=== PATIENT | male | born 1980 | race African-American/Black ===

== ENCOUNTER 2016-11-21 03:30 | Emergency (ER) | payer BC, OTHER ==
[2016-11-21] MEDS: ceFAZolin 1,000 MG VIAL IM STA (04:19)
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
[2016-11-21 05:07] VITALS: BP 144/97; PULSE 70; RESP 18; TEMP 97
== END 2016-11-21 05:06 | disposition home or self-care (01) ==
LOC: EC 03:30
DX: S01.01XA Laceration without foreign body of scalp, initial encounter (principal); S01.511A Laceration without foreign body of lip, initial encounter; J45.909 Unspecified asthma, uncomplicated; Z88.0 Allergy status to penicillin; F17.200 Nicotine dependence, unspecified, uncomplicated; W26.0XXA Contact with knife, initial encounter
CPT/HCPCS: 12032; 12011; 96372; 99283; J0690

== ENCOUNTER 2019-01-26 19:39 | Emergency (ER) | payer OTHER ==
[2019-01-26 19:51] VITALS: TEMP 99.2
--- NOTE | 2019-01-26 21:45 | CT ---
EXAMINATION TYPE: CT brain darian millan DATE OF EXAM: 01/26/2019 COMPARISON: None HISTORY: fall. posterior head injury CT DLP: 1334.4 mGycm Automated exposure control for dose reduction was used. TECHNIQUE: CT scan of the head and cervical spine are performed without contrast. FINDINGS: Ventricles of normal size. There is no mass effect nor midline shift. There is no sign of intracranial hemorrhage. Calvarium is intact. There is some straightening of the cervical spine. There is mild disc space narrowing at C5-6 and C6- 7. There is spurring of the endplates. Posterior elements are intact. Facet joints are intact. The sk ull base is intact. IMPRESSION: Negative CT scan of the brain. Negative CT scan cervical spine. Straightening and could relate to old ligamentous injury. Mild spond ylotic changes.
--- NOTE | 2019-01-26 21:47 | XR ---
EXAMINATION TYPE: XR thoracic spine complete DATE OF EXAM: 01/26/2019 COMPARISON: NONE HISTORY: Back pain TECHNIQUE: 3 views FINDINGS: Thoracic vertebra have normal spacing and alignment. Posterior elements are intact. There i s no paraspinal mass. IMPRESSION: Negative thoracic spine exam.
--- NOTE | 2019-01-26 21:49 | XR ---
EXAMINATION TYPE: XR lumbar spine 2 or 3V DATE OF EXAM: 01/26/2019 COMPARISON: NONE HISTORY: Back pain TECHNIQUE: 3 views FINDINGS: Vertebra have normal alignment. Disc spaces are fairly normal. Posterior elements are intac t. There is no evidence of a fracture. Sacroiliac joints appear normal. IMPRESSION: Negative lumbar spine exam. No fracture.
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
[2019-01-26 22:24] VITALS: BP 126/82; PULSE 78; RESP 16
== END 2019-01-26 22:20 | disposition home or self-care (01) ==
LOC: EC 19:39
DX: S00.03XA Contusion of scalp, initial encounter (principal); S20.419A Abrasion of unspecified back wall of thorax, initial encounter; J45.909 Unspecified asthma, uncomplicated; F17.200 Nicotine dependence, unspecified, uncomplicated; Z88.0 Allergy status to penicillin; Z88.1 Allergy status to other antibiotic agents; Z79.899 Other long term (current) drug therapy; W10.9XXA Fall (on) (from) unspecified stairs and steps, initial encounter; Y92.89 Other specified places as the place of occurrence of the external cause
CPT/HCPCS: 70450; 72072; 72100; 72125; 99284

== ENCOUNTER 2019-02-07 15:21 | Emergency (ER) | payer OTHER ==
[2019-02-07] MEDS ORDERED: methylPREDNISolone SOD SUCCI 125 MG/2 ML VIAL IM ONE (16:36)
[2019-02-07] MEDS ORDERED: IPRATROPIUM-ALBUTEROL 3 ML NEB INHALATION STA ×2 (16:36→17:11)
--- NOTE | 2019-02-07 17:46 | ED ---
SOB HPI - General Chief Complaint: Shortness of Breath Stated Complaint: Sob Time Seen by Provider: 02/07/19 16:34 Source: patient Mode of arrival: ambulatory Limitations: no limitations - History of Present Illness Initial Comments: 38-year-old male current smoker history of asthma presenting today for chief complaint of asthma exacerbation. Patient states he began noticing wheezing last night and he states he was out of his nebulizer treatments at home. Patient states that he continued into today and he presented for evaluation of asthma exacerbation. Patient states identical to previous exacerbations in the past. Patient denies any differences with previous exacerbations. Patient denies chest pain he denies back pain he denies fever or chills night sweats increased sputum production. Patient states he was feeling well aside from having shortness of breath. Patient has a lower external swelling, nausea abdominal or epigastric pain. Patient states he is out of his rescue inhaler as well. Upon arrival patient oxygenating well on room air, audible wheezes. BP elevated. Pt appears noncyanotic no acute distress. - Related Data Previous Rx's Medication Instructions Recorded Albuterol Inhaler [Ventolin Hfa 1 - 2 puff INHALATION RT-Q6H PRN 7 02/07/19 Inhaler] Days #1 inhaler Ipratropium-Albuterol Nebulize 3 ml INHALATION Q6H PRN 5 Days #20 02/07/19 [Duoneb 0.5 mg-3 mg/3 ml Soln] neb predniSONE 50 mg PO DAILY 4 Days #4 tab 02/07/19 Allergies Allergy/AdvReac Type Severity Reaction Status Date / Time amoxicillin Allergy Rash/Hives Verified 11/21/16 03:38 Penicillins Allergy Rash/Hives Verified 11/21/16 03:38 shellfish derived [Shellfish] Allergy Rash/Hives Verified 02/07/19 18:37 Review of Systems ROS Statement: Those systems with pertinent positive or pertinent negative responses have been documented in the HPI. ROS Other: All systems not noted in ROS Statement are negative. Past Medical History Past Medical History: Asthma, Hypertension History of Any Multi-Drug Resistant Organisms: None Reported Past Surgical History: No Surgical Hx Reported Additional Past Surgical History / Comment(s): finger surgery Past Psychological History: No Psychological Hx Reported Smoking Status: Current every day smoker Past Alcohol Use History: Occasional Past Drug Use History: None Reported General Exam - General Exam Comments Initial Comments: General: The patient is awake and alert, in no distress, and does not appear acutely ill. Eye: +3 mm pupils are equal, round and reactive to light, extra-ocular movements are intact. No nystagmus. There is normal conjunctiva bilaterally. No signs of icterus. No photophobia Ears, nose, mouth and throat: There are moist mucous membranes and no oral lesions. Oropharynx was not erythematous there is no tonsillar enlargement exudates or lesions. Uvula midline. Tympanic membranes are not erythematous or is no effusions bulging or retraction. No tenderness to palpation of the mastoid. No anterior cervical lymphadenopathy. Rhinorrhea, clear and bilateral nares. No tripoding, no drooling. Neck: The neck is supple, there is no tenderness or JVD. Cardiovascular: There is a regular rate and rhythm. No murmur, rub or gallop is appreciated. Respiratory: Lungs are clear to auscultation, respirations are non-labored, breath sounds are equal. Diffuse exudate or wheeze. No stridor, rales, or rhonchi. No retractions or abdominal breathing. Gastrointestinal: Soft, non-distended, non-tender abdomen without masses or organomegaly noted. There is no rebound or guarding present. Bowel sounds are unremarkable. Musculoskeletal: Normal ROM, no tenderness. Strength 5/5. Sensation intact. Radial pulses equal bilaterally 2+. Neurological: A&O x 3. CN II-XII intact, There are no obvious motor or sensory deficits. Coordination appears grossly intact. Speech appears normal, no muffling. Skin: Skin is warm and dry and no rashes or lesions are noted. No extremity edema Psychiatric: Cooperative Limitations: no limitations Course Vital Signs 02/07/19 02/07/19 02/07/19 16:11 17:10 17:21 Temperature 98.3 F Pulse Rate 92 68 70 Respiratory 28 H Rate Blood Pressure 147/112 O2 Sat by Pulse 97 Oximetry 02/07/19 02/07/19 02/07/19 17:50 18:00 18:44 Temperature 97.8 F Pulse Rate 70 68 91 Respiratory 18 Rate Blood Pressure 146/108 O2 Sat by Pulse 97 Oximetry - Reevaluation(s) Reevaluation #1: Patient was reassessed after initial DuoNeb treatment, significant improvement of extra wheeze. Patient will receive second treatment. 02/07/19 17:46 Medical Decision Making - Medical Decision Making 38-year-old male presenting for asthma exacerbation. Patient has diffuse extremities. Patient was given 2 DuoNeb treatments as well as IM steroids in the emergency department. Significant improvement with resolution of x-ray wheeze. Patient denies any current shortness of breath upon reexamination. Patient requesting discharge. Patient blood pressure elevated. Patient will dress issue with primary care provider he denies any chest pain, decreased urine output headache, dizziness, nausea or other concerning symptoms for end organ damage. Patient is out of her medications for asthma treatment. Patient was provided prescription for DuoNeb treatments with the nebulizer at home, rescue inhaler as well as a steroid pack for 5 days. At this time I feel patient is stable for discharge I discussed the case with type opal Ludwig who is agreeable with patient discharge. Pt discharged oxygenating well on RA. Appearing well. Disposition Clinical Impression: Asthma exacerbation Disposition: HOME SELF-CARE Condition: Good Instructions (If sedation given, give patient instructions): Asthma (ED) Additional Instructions: Please use medication as discussed. Please follow-up with family doctor in the next 2 days.. Please return to emergency room if the symptoms increase or worsen or for any other concerns. Prescriptions: Ipratropium-Albuterol Nebulize [Duoneb 0.5 mg-3 mg/3 ml Soln] 3 ml INHALATION Q6H PRN 5 Days #20 neb PRN Reason: Shortness Of Breath predniSONE 50 mg PO DAILY 4 Days #4 tab Albuterol Inhaler [Ventolin Hfa Inhaler] 1 - 2 puff INHALATION RT-Q6H PRN 7 Days #1 inhaler PRN Reason: Wheezing Is patient prescribed a controlled substance at d/c from ED?: No Referrals: Jose Sanches MD [Primary Care Provider] - 1-2 days Time of Disposition: 17:44
[2019-02-07 18:45] VITALS: BP 146/108; PULSE 91; RESP 18; TEMP 97.8
== END 2019-02-07 18:45 | disposition home or self-care (01) ==
LOC: EC 15:21
DX: J45.901 Unspecified asthma with (acute) exacerbation (principal); F17.200 Nicotine dependence, unspecified, uncomplicated; Z88.0 Allergy status to penicillin; Z91.013 Allergy to seafood
CPT/HCPCS: 94640 ×2; 99284; 96372; J2930

== ENCOUNTER 2019-02-08 01:03 | Emergency (ER) | payer OTHER ==
[2019-02-08] MEDS ORDERED: DIPH,PERTUS(ACELL)TETVAC-LF 0.5 ML VIAL IM ONE (01:19)
[2019-02-08] MEDS ORDERED: LIDOCAINE 1% INJ 10MG/ML (20 ML MDV) SQ ONE (01:50)
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
[2019-02-08 03:41] LABS: Amphetamine Screen,Urine Not Detected (NotDetected); Barbiturate Screen,Urine Not Detected (NotDetected); Benzodiazepines Screen,Urine Not Detected (NotDetected); Cocaine Screen,Urine Not Detected (NotDetected); Methadone Screen, Urine Not Detected (NotDetected); Opiate Screen,Urine Not Detected (NotDetected); Oxycodone Screen, Urine Not Detected (NotDetected); Phencyclidine Screen,Urine Not Detected (NotDetected); Tricyclic Antidepressant,Urine Not Detected (NotDetected); Urn Cannabinoid Scrn Not Detected (NotDetected)
[2019-02-08 03:54] VITALS: BP 124/80; PULSE 97; RESP 16; TEMP 97.4
== END 2019-02-08 03:54 | disposition home or self-care (01) ==
LOC: EC 01:03
DX: S02.2XXA Fracture of nasal bones, initial encounter for closed fracture (principal); S01.111A Laceration without foreign body of right eyelid and periocular area, initial encounter; S80.212A Abrasion, left knee, initial encounter; S80.211A Abrasion, right knee, initial encounter; F17.200 Nicotine dependence, unspecified, uncomplicated; Z88.0 Allergy status to penicillin; Z91.013 Allergy to seafood; Z23 Encounter for immunization; Y04.8XXA Assault by other bodily force, initial encounter; Y92.830 Public park as the place of occurrence of the external cause
CPT/HCPCS: 36415; 80306; 72125; 70486; 70450; 90715; 99284; 12013; 90471; G0480; J2001; 80320

== ENCOUNTER 2019-06-03 17:58 | Emergency (ER) | payer OTHER ==
[2019-06-03 18:06] VITALS: BP 137/95; PULSE 100; RESP 20; TEMP 99.3
[2019-06-03] MEDS ORDERED: ACET/COD 300 MG/30 MG STARTER PACK 6 TAB BTL PO STA (18:14)
--- NOTE | 2019-06-03 18:15 | ED ---
ENT HPI - General Chief complaint: Dental/Oral Stated complaint: Dental/throat pain Time Seen by Provider: 06/03/19 18:07 Source: patient Mode of arrival: ambulatory Limitations: no limitations - History of Present Illness Initial comments: 39-year-old male presenting for left upper dental pain. Patient states he has had left upper dental pain for the past 2-3 days. Patient states he has a slight sore throat. Patient denies any difficulty breathing or swallowing. Patient denies any swelling below the time of the lips. Denies any facial swelling. Denies fevers. Denies night sweats or chills. Denies any compressive symptoms. Remaining review of systems negative upon arrival patient appears well no signs of acute distress. Patient states he does have to make an appointment with his dentist however was not able to get in. - Related Data Previous Rx's Medication Instructions Recorded Albuterol Inhaler [Ventolin Hfa 1 - 2 puff INHALATION RT-Q6H PRN 7 02/07/19 Inhaler] Days #1 inhaler Ipratropium-Albuterol Nebulize 3 ml INHALATION Q6H PRN 5 Days #20 02/07/19 [Duoneb 0.5 mg-3 mg/3 ml Soln] neb predniSONE 50 mg PO DAILY 4 Days #4 tab 02/07/19 Clindamycin [Cleocin] 450 mg PO Q8H 7 Days #63 capsule 06/03/19 Allergies Allergy/AdvReac Type Severity Reaction Status Date / Time amoxicillin Allergy Rash/Hives Verified 06/03/19 18:05 Penicillins Allergy Rash/Hives Verified 06/03/19 18:05 shellfish derived [Shellfish] Allergy Rash/Hives Verified 06/03/19 18:05 Review of Systems ROS Statement: Those systems with pertinent positive or pertinent negative responses have been documented in the HPI. ROS Other: All systems not noted in ROS Statement are negative. Past Medical History Past Medical History: Asthma, Hypertension History of Any Multi-Drug Resistant Organisms: None Reported Past Surgical History: No Surgical Hx Reported Additional Past Surgical History / Comment(s): finger surgery Past Psychological History: No Psychological Hx Reported Smoking Status: Current every day smoker Past Alcohol Use History: Occasional Past Drug Use History: None Reported General Exam - General Exam Comments Initial Comments: General: The patient is awake and alert, in no distress, and does not appear acutely ill. Eye: Pupils are equal, round and reactive to light, extra-ocular movements are intact. No nystagmus. There is normal conjunctiva bilaterally. No signs of icterus. Ears, nose, mouth and throat: There are moist mucous membranes and no oral lesions. Patient has carious teeth. No fluctuant abscess. No swelling below tongue or below the angle of the mandible. No facial swelling. Tenderness to percussion of tooth #14. Cardiovascular: There is a regular rate and rhythm. No murmur, rub or gallop is appreciated. Respiratory: Lungs are clear to auscultation, respirations are non-labored, breath sounds are equal. No wheezes, stridor, rales, or rhonchi. Neurological: A&O x 3. CN II-XII intact, There are no obvious motor or sensory deficits. Coordination appears grossly intact. Speech is normal. Skin: Skin is warm and dry and no rashes or lesions are noted. Psychiatric: Cooperative, appropriate mood & affect, normal judgment. Limitations: no limitations Course Vital Signs 06/03/19 18:03 Temperature 99.3 F Pulse Rate 100 Respiratory 20 Rate Blood Pressure 137/95 O2 Sat by Pulse 99 Oximetry Medical Decision Making - Medical Decision Making Appearing 39-year-old male presenting for cc of dental pain. pain to percussion of tooth #14. Patient has no fluctuant abscess. Patient has no fevers infection symptoms the swelling below the mandible no signs of Robert's angina. Patient afebrile appearing well patient states she will make an appointment with his dentist next week. Patient provided a starter pack for Tylenol No. 3 for pain as well as a prescription for penicillin VK. Return parameters were discussed the patient was discharged appearing well Disposition Clinical Impression: Pain, dental, Dental caries Disposition: HOME SELF-CARE Condition: Good Instructions (If sedation given, give patient instructions): Dental Abscess (ED), Dental Caries (ED) Additional Instructions: Please use medication as discussed. Please follow-up with dentist on thursday as scheduled. Please return to emergency room if the symptoms increase or worsen or for any other concerns. Prescriptions: Clindamycin [Cleocin] 450 mg PO Q8H 7 Days #63 capsule Is patient prescribed a controlled substance at d/c from ED?: No Referrals: Jose Sanches MD [Primary Care Provider] - 1-2 days Time of Disposition: 18:15
== END 2019-06-03 18:43 | disposition home or self-care (01) ==
LOC: EC 17:58
DX: K02.9 Dental caries, unspecified (principal); K08.89 Other specified disorders of teeth and supporting structures; F17.200 Nicotine dependence, unspecified, uncomplicated; Z88.0 Allergy status to penicillin; Z91.013 Allergy to seafood
CPT/HCPCS: 99282

== ENCOUNTER 2019-06-12 13:27 | Emergency (ER) | payer OTHER ==
[2019-06-12 13:31] VITALS: BP 121/85; PULSE 63; RESP 18; TEMP 97.9
[2019-06-12] MEDS ORDERED: AZITHROMYCIN 500 MG TAB PO STA (14:32)
[2019-06-12] MEDS ORDERED: cefTRIAXone 250 MG VIAL IM STA (14:32)
[2019-06-12 14:37] LABS: Appearance,Urine Cloudy (Clear); Bilirubin,Urine Negative (Negative); Blood,Urine Trace (Negative); Color,Urine Yellow; Glucose,Urine (UA) Negative (Negative); Ketones,Urine Negative (Negative); Leukocyte Esterase,Urine Large (Negative); Mucus,Urine Rare /hpf; Nitrite,Urine Negative (Negative); PH, Urine 5.5 (5.0-8.0); Protein,Urine Trace (Negative); RBC,Urine 12 /hpf (0-5); Specific Gravity,Urine 1.018 (1.001-1.035); Squamous Epithelial Cell,Urine <1 /hpf (0-4); Urobilinogen,Urine <2.0 mg/dL (<2.0); WBC,Urine >182 /hpf (0-5)
[2019-06-12] MEDS ORDERED: IPRATROPIUM-ALBUTEROL 3 ML NEB INHALATION STA (14:45)
[2019-06-12] MEDS ORDERED: CEPHALEXIN 500MG STARTER PACK 4 CAP BTL PO STA (14:46)
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
[2019-06-14 15:05] LABS: N. gonorrhoeae,PCR Positive (Neg,Equiv); Neisseria Source Urine
[2019-06-14 15:16] LABS: C. trachomatis,PCR Negative (Neg,Equiv); Chlamydia trachomatis Source Urine
== END 2019-06-12 15:20 | disposition home or self-care (01) ==
LOC: EC 13:27
DX: N39.0 Urinary tract infection, site not specified (principal); F17.200 Nicotine dependence, unspecified, uncomplicated; Z88.0 Allergy status to penicillin; Z91.013 Allergy to seafood
CPT/HCPCS: 99284; 96372; 81001; 87491; 87591; 87086; J0696

== ENCOUNTER 2019-08-06 09:14 | Emergency (ER) | payer OTHER ==
[2019-08-06] MEDS ORDERED: SODIUM CHLORIDE 0.9% 1,000 ML IV STA (09:34)
[2019-08-06] MEDS ORDERED: methylPREDNISolone SOD SUCCI 125 MG/2 ML VIAL IV STA (09:34)
[2019-08-06] MEDS ORDERED: IPRATROPIUM-ALBUTEROL 3 ML NEB INHALATION STA ×2 (09:34→12:12)
[2019-08-06 10:15] LABS: Partial Thromboplastin Time 24.6 sec (22.0-30.0); Prothrombin Time 10.8 sec (9.0-12.0)
[2019-08-06 10:21] LABS: ALT 33 U/L (21-72); AST 31 U/L (17-59); African American GFR (CKD) >90 (>60 ml/min/1.73 sqM); Albumin 4.6 g/dL (3.5-5.0); Alkaline Phosphatase 37 U/L (38-126); Anion Gap 10 mmol/L; Blood Urea Nitrogen 13 mg/dL (9-20); Calcium 9.3 mg/dL (8.4-10.2); Carbon Dioxide 25 mmol/L (22-30); Chloride 107 mmol/L (98-107); Creatine Kinase 99 U/L (55-170); Glucose 86 mg/dL (74-99); Magnesium 1.7 mg/dL (1.6-2.3); Potassium 4.1 mmol/L (3.5-5.1); Sodium 142 mmol/L (137-145); Total Bilirubin 2.6 mg/dL (0.2-1.3); Total Protein 7.9 g/dL (6.3-8.2)
--- NOTE | 2019-08-06 10:23 | ED ---
SOB HPI - General Chief Complaint: Shortness of Breath Stated Complaint: Syncope/sob Time Seen by Provider: 08/06/19 09:23 Source: patient, RN notes reviewed Mode of arrival: wheelchair Limitations: no limitations - History of Present Illness Initial Comments: This is a 39-year-old male with a history of asthma states he had the onset last night of difficulty breathing which is gotten progressively worse throughout the night. His home inhalers not helping. He denies any fevers chills or sweats she does have a cough of clear phlegm no overt chest pain he does state however he was breathing so hard the past alcohol. He did fall backwards striking his head on a wooden floor. He complains of posterior neck pain. No loss of function is upper or lower extremities no other modifying factors at this time. MD Complaint: shortness of breath - Related Data Home Medications Medication Instructions Recorded Confirmed Albuterol Inhaler [Ventolin Hfa 2 puff INHALATION RT-Q6H PRN 08/06/19 08/06/19 Inhaler] Albuterol Nebulized [Ventolin 2.5 mg INHALATION RT-Q6H PRN 08/06/19 08/06/19 Nebulized] Previous Rx's Medication Instructions Recorded Albuterol Inhaler [Ventolin Hfa 2 puff INHALATION Q6HR PRN #1 08/06/19 Inhaler] inhaler Lisinopril [Zestril] 5 mg PO DAILY #15 tab 08/06/19 predniSONE 20 mg PO BID #10 tab 08/06/19 Allergies Allergy/AdvReac Type Severity Reaction Status Date / Time amoxicillin Allergy Rash/Hives Verified 08/06/19 10:20 Penicillins Allergy Rash/Hives Verified 08/06/19 10:20 shellfish derived [Shellfish] Allergy Swelling Verified 08/06/19 10:20 Review of Systems ROS Statement: Those systems with pertinent positive or pertinent negative responses have been documented in the HPI. ROS Other: All systems not noted in ROS Statement are negative. Past Medical History Past Medical History: Asthma, Hypertension History of Any Multi-Drug Resistant Organisms: None Reported Past Surgical History: Orthopedic Surgery Additional Past Surgical History / Comment(s): finger surgery Past Psychological History: No Psychological Hx Reported Smoking Status: Current every day smoker Past Alcohol Use History: Occasional Past Drug Use History: None Reported General Exam - General Exam Comments Initial Comments: This is a well-developed well-nourished awake alert oriented 3 male Limitations: no limitations General appearance: alert, anxious, in distress Head exam: Present: atraumatic, normocephalic, normal inspection Eye exam: Present: normal appearance, PERRL, EOMI. Absent: scleral icterus, conjunctival injection, periorbital swelling ENT exam: Present: normal exam, mucous membranes moist Neck exam: Present: normal inspection, other (Tenderness palpation of the poste rior musculature. Cervical collar in place). Absent: tenderness, meningismus, lymphadenopathy Respiratory exam: Present: respiratory distress, wheezes, accessory muscle use, decreased breath sounds. Absent: rales, rhonchi, stridor Cardiovascular Exam: Present: regular rate, normal rhythm, normal heart sounds. Absent: systolic murmur, diastolic murmur, rubs, gallop, clicks GI/Abdominal exam: Present: soft, normal bowel sounds. Absent: distended, tenderness, guarding, rebound, rigid Extremities exam: Present: normal inspection, full ROM, normal capillary refill. Absent: tenderness, pedal edema, joint swelling, calf tenderness Back exam: Present: normal inspection Neurological exam: Present: alert, oriented X3, CN II-XII intact Psychiatric exam: Present: normal affect, normal mood Skin exam: Present: warm, dry, intact, normal color. Absent: rash Course Vital Signs 08/06/19 08/06/19 08/06/19 09:20 10:35 10:46 Temperature 97.8 F Pulse Rate 96 72 73 Respiratory 24 Rate Blood Pressure 182/106 O2 Sat by Pulse 95 Oximetry 08/06/19 08/06/19 12:34 12:45 Temperature Pulse Rate 73 68 Respiratory Rate Blood Pressure O2 Sat by Pulse Oximetry - Reevaluation(s) Reevaluation #1: 08/06/19 12:52 First reevaluation after treatment is feeling much improved however decided diffuse wheezing and diminished breath sounds. Procedures - Smoking Cessation Time Spent Discussing Smoking Cessation w/Patient (Minutes): 3 Patient Acknowledges Need for Cessation: Yes Medical Decision Making - Medical Decision Making Patient did get improvement in his aeration after IV medication as well as frequent treatments. He will be discharged he does not have any medication at home he'll be placed on inhalers as well as oral steroids additionally he did have a history of hypertension but is blood pressure had normalized she is currently not on medication he does seem to require medication though he did improve after IV fluids. Be started on low-dose lisinopril and follow-up with Dr. Sanches - Lab Data Result diagrams: 08/06/19 09:53 08/06/19 09:53 Lab Results 08/06/19 08/06/19 08/06/19 Range/Units 09:53 09:53 09:53 WBC 6.2 (3.8-10.6) k/uL RBC 4.44 (4.30-5.90) m/uL Hgb 15.0 (13.0-17.5) gm/dL Hct 44.4 (39.0-53.0) % MCV 100.0 (80.0-100.0) fL MCH 33.7 (25.0-35.0) pg MCHC 33.8 (31.0-37.0) g/dL RDW 13.1 (11.5-15.5) % Plt Count 250 (150-450) k/uL Neutrophils % 56 % Lymphocytes % 28 % Monocytes % 5 % Eosinophils % 6 % Basophils % 3 % Neutrophils # 3.4 (1.3-7.7) k/uL Lymphocytes # 1.7 (1.0-4.8) k/uL Monocytes # 0.3 (0-1.0) k/uL Eosinophils # 0.4 (0-0.7) k/uL Basophils # 0.2 (0-0.2) k/uL PT (9.0-12.0) sec INR (<1.2) APTT (22.0-30.0) sec Sodium 142 (137-145) mmol/L Potassium 4.1 (3.5-5.1) mmol/L Chloride 107 (98-107) mmol/L Carbon Dioxide 25 (22-30) mmol/L Anion Gap 10 mmol/L BUN 13 (9-20) mg/dL Creatinine 0.92 (0.66-1.25) mg/dL Est GFR (CKD-EPI)AfAm >90 (>60 ml/min/1.73 sqM) Est GFR (CKD-EPI)NonAf >90 (>60 ml/min/1.73 sqM) Glucose 86 (74-99) mg/dL Calcium 9.3 (8.4-10.2) mg/dL Magnesium 1.7 (1.6-2.3) mg/dL Total Bilirubin 2.6 H (0.2-1.3) mg/dL AST 31 (17-59) U/L ALT 33 (21-72) U/L Alkaline Phosphatase 37 L (38-126) U/L Creatine Kinase 99 (55-170) U/L Troponin I (0.000-0.034) ng/mL NT-Pro-B Natriuret Pep 86 pg/mL Total Protein 7.9 (6.3-8.2) g/dL Albumin 4.6 (3.5-5.0) g/dL 08/06/19 08/06/19 Range/Units 09:53 09:53 WBC (3.8-10.6) k/uL RBC (4.30-5.90) m/uL Hgb (13.0-17.5) gm/dL Hct (39.0-53.0) % MCV (80.0-100.0) fL MCH (25.0-35.0) pg MCHC (31.0-37.0) g/dL RDW (11.5-15.5) % Plt Count (150-450) k/uL Neutrophils % % Lymphocytes % % Monocytes % % Eosinophils % % Basophils % % Neutrophils # (1.3-7.7) k/uL Lymphocytes # (1.0-4.8) k/uL Monocytes # (0-1.0) k/uL Eosinophils # (0-0.7) k/uL Basophils # (0-0.2) k/uL PT 10.8 (9.0-12.0) sec INR 1.0 (<1.2) APTT 24.6 (22.0-30.0) sec Sodium (137-145) mmol/L Potassium (3.5-5.1) mmol/L Chloride (98-107) mmol/L Carbon Dioxide (22-30) mmol/L Anion Gap mmol/L BUN (9-20) mg/dL Creatinine (0.66-1.25) mg/dL Est GFR (CKD-EPI)AfAm (>60 ml/min/1.73 sqM) Est GFR (CKD-EPI)NonAf (>60 ml/min/1.73 sqM) Glucose (74-99) mg/dL Calcium (8.4-10.2) mg/dL Magnesium (1.6-2.3) mg/dL Total Bilirubin (0.2-1.3) mg/dL AST (17-59) U/L ALT (21-72) U/L Alkaline Phosphatase (38-126) U/L Creatine Kinase (55-170) U/L Troponin I <0.012 (0.000-0.034) ng/mL NT-Pro-B Natriuret Pep pg/mL Total Protein (6.3-8.2) g/dL Albumin (3.5-5.0) g/dL - EKG Data -: EKG Interpreted by Me EKG shows normal: sinus rhythm EKG Comments: Normal sinus rhythm a 93. Interval 150 to QRS 70 QT since QTC 340/422 right atrial enlargement some artifact present - Radiology Data Radiology results: report reviewed (Imaging was reviewed report reviewed no acute findings), image reviewed Disposition Clinical Impression: Asthma with acute exacerbation, Hypertension Disposition: HOME SELF-CARE Condition: Good Instructions (If sedation given, give patient instructions): Asthma (ED), Hypertension (ED), How to Stop Smoking (ED) Additional Instructions: Medication prescription sent your preferred pharmacy Prescriptions: predniSONE 20 mg PO BID #10 tab Albuterol Inhaler [Ventolin Hfa Inhaler] 2 puff INHALATION Q6HR PRN #1 inhaler PRN Reason: Dyspnea Lisinopril [Zestril] 5 mg PO DAILY #15 tab Is patient prescribed a controlled substance at d/c from ED?: No Referrals: Jose Sanches MD [Primary Care Provider] - 1-2 days
[2019-08-06 10:35] LABS: Basophils # (A) 0.2 k/uL (0-0.2); Basophils % (A) 3 %; Eosinophils # (A) 0.4 k/uL (0-0.7); Eosinophils % (A) 6 %; HCT 44.4 % (39.0-53.0); Lymphocytes # (A) 1.7 k/uL (1.0-4.8); Lymphocytes % (A) 28 %; MCH 33.7 pg (25.0-35.0); MCHC 33.8 g/dL (31.0-37.0); Mean Platelet Volume 7.9; Monocytes # (A) 0.3 k/uL (0-1.0); Monocytes % (A) 5 %; Neutrophils # (A) 3.4 k/uL (1.3-7.7); Neutrophils % (A) 56 %; Platelet Count 250 k/uL (150-450); RBC 4.44 m/uL (4.30-5.90); RDW 13.1 % (11.5-15.5); WBC 6.2 k/uL (3.8-10.6)
--- NOTE | 2019-08-06 10:54 | CT ---
EXAMINATION TYPE: CT brain cspine wo con DATE OF EXAM: 08/06/2019 COMPARISON: Previous study dated 02/08/2019 HISTORY: Fall from asthmatic syncope CT DLP: 1304 mGycm Automated exposure control for dose reduction was used. TECHNIQUE: CT scan of the head and cervical spine are performed without contrast. FINDINGS: BRAIN: Central structures are midline. There is no evidence of hydrocephalus. No acute focal lesion, mass effect or midline shift is seen. I do not see evidence of intracranial blood. Visualized portions of the paranasal sinuses and mastoids are clear. The bony calvarium is intact. IMPRESSION: NORMAL CT SCAN OF THE BRAIN CERVICAL SPINE: Visualized portions of the lungs are clear. Prevertebral soft tissues are normal. There is a mild reversal of the normal cervical lordosis. Alignment is normal. Atlantoaxial relations hips are normal. There is hypertrophic spondylosis and degenerative disc disease, most marked at C5-6 and C6-7 but als o present at C4-5. There is uncovertebral joint disease present at these levels. There is mild facet arthropathy at C2-C3 and C3-4 as well as C4-5. No definite protrusion is seen. No fractures are ident ified. IMPRESSION: 1. NO ACUTE OSSEOUS LESION. 2. DEGENERATIVE CHANGE.
[2019-08-06] MEDS ORDERED: MAGNESIUM SULFATE-D5W PMX 1 GM in DEXTROSE/WATER 1 100ML.BAG IVPB ONE (11:22)
--- NOTE | 2019-08-06 11:54 | XR ---
EXAMINATION TYPE: XR chest 2V DATE OF EXAM ORDERED: 08/06/2019 HISTORY: difficulty breathing. REFERENCE: None. FINDINGS: The lungs are clear. Pleural spaces are clear. Heart size is normal. IMPRESSION: NORMAL CHEST.
[2019-08-06 13:08] VITALS: RESP 16
[2019-08-06 13:16] VITALS: BP 135/91; PULSE 69; TEMP 98.8
== END 2019-08-06 13:20 | disposition home or self-care (01) ==
LOC: EC 09:14
DX: J45.901 Unspecified asthma with (acute) exacerbation (principal); I10 Essential (primary) hypertension; F17.200 Nicotine dependence, unspecified, uncomplicated; Z79.51 Long term (current) use of inhaled steroids; Z71.6 Tobacco abuse counseling; Z88.0 Allergy status to penicillin; Z91.013 Allergy to seafood
CPT/HCPCS: 36415; 94640 ×2; 93005; 83880; 80053; 82550; 83735; 84484; 85025; 85610; 85730; 71046; 72125; 70450; 99285; 96365; 96375; J2930; J3475

== ENCOUNTER 2019-12-01 10:26 | Emergency (ER) | payer OTHER ==
[2019-12-01 10:32] VITALS: RESP 18
[2019-12-01] MEDS ORDERED: DIAZEPAM 5 MG/ML 2 ML INJ IM STA (11:23)
[2019-12-01] MEDS ORDERED: ACET/COD 300 MG/30 MG STARTER PACK 6 TAB BTL PO STA (11:29)
--- NOTE | 2019-12-01 11:30 | ED ---
Neck Injury/Pain HPI - General Chief Complaint: Neck Pain/Injury Stated Complaint: neck/head pain Time Seen by Provider: 12/01/19 10:44 Source: patient, RN notes reviewed Mode of arrival: ambulatory Limitations: no limitations - History of Present Illness Initial Comments: This a 39-year-old male presents emergency Department with chief complaint of neck pain. This has been ongoing issue. Patient has seen his PCP and neurology for this. Patient's had no acute resolution of his symptoms. Patient has had prior imaging with no acute findings. Patient occasionally has some symptoms that radiate down his arm but does not have any current symptoms no chest pain or shortness breath denies any trauma no headache no dizziness. - Related Data Home Medications Medication Instructions Recorded Confirmed Albuterol Inhaler [Ventolin Hfa 2 puff INHALATION RT-Q6H PRN 08/06/19 08/06/19 Inhaler] Albuterol Nebulized [Ventolin 2.5 mg INHALATION RT-Q6H PRN 08/06/19 08/06/19 Nebulized] Previous Rx's Medication Instructions Recorded Albuterol Inhaler [Ventolin Hfa 2 puff INHALATION Q6HR PRN #1 08/06/19 Inhaler] inhaler Lisinopril [Zestril] 5 mg PO DAILY #15 tab 08/06/19 predniSONE [Deltasone] 20 mg PO BID #10 tab 08/06/19 Cyclobenzaprine [Flexeril] 10 mg PO TID PRN #15 tab 12/01/19 Ibuprofen [Motrin] 600 mg PO Q8HR PRN #30 tab 12/01/19 Allergies Allergy/AdvReac Type Severity Reaction Status Date / Time amoxicillin Allergy Rash/Hives Verified 12/01/19 10:28 Penicillins Allergy Rash/Hives Verified 12/01/19 10:28 shellfish derived [Shellfish] Allergy Swelling Verified 12/01/19 10:28 Review of Systems ROS Statement: Those systems with pertinent positive or pertinent negative responses have been documented in the HPI. ROS Other: All systems not noted in ROS Statement are negative. Past Medical History Past Medical History: Asthma, Hypertension History of Any Multi-Drug Resistant Organisms: None Reported Past Surgical History: Orthopedic Surgery Additional Past Surgical History / Comment(s): finger surgery Past Psychological History: No Psychological Hx Reported Smoking Status: Current every day smoker Past Alcohol Use History: Occasional Past Drug Use History: None Reported General Exam Limitations: no limitations General appearance: alert, in no apparent distress Head exam: Present: atraumatic, normocephalic, normal inspection Eye exam: Present: normal appearance, PERRL, EOMI. Absent: scleral icterus, conjunctival injection, periorbital swelling ENT exam: Present: normal exam, normal oropharynx, mucous membranes moist, TM's normal bilaterally, normal external ear exam Neck exam: Present: tenderness (Left paracervical tenderness), full ROM. Absent: normal inspection, meningismus, lymphadenopathy Respiratory exam: Present: normal lung sounds bilaterally. Absent: respiratory distress, wheezes, rales, rhonchi, stridor Cardiovascular Exam: Present: regular rate, normal rhythm, normal heart sounds. Absent: systolic murmur, diastolic murmur, rubs, gallop, clicks Extremities exam: Present: normal inspection, full ROM, normal capillary refill. Absent: tenderness, pedal edema, joint swelling, calf tenderness Back exam: Present: full ROM. Absent: tenderness Neurological exam: Present: alert, oriented X3, CN II-XII intact, reflexes normal. Absent: motor sensory deficit Course Vital Signs 12/01/19 10:28 Temperature 97.3 F L Pulse Rate 93 Respiratory 18 Rate Blood Pressure 160/112 O2 Sat by Pulse 97 Oximetry Medical Decision Making - Medical Decision Making Patient has paracervical tenderness, muscle spasms. Patient will follow-up with orthopedics and provided muscle relaxers at this time. He is neurologically intact. Disposition Clinical Impression: Cervical muscle pain Disposition: HOME SELF-CARE Condition: Stable Instructions (If sedation given, give patient instructions): Acute Neck Pain (ED) Additional Instructions: Please return to the Emergency Department if symptoms worsen or any other concerns. Prescriptions: Cyclobenzaprine [Flexeril] 10 mg PO TID PRN #15 tab PRN Reason: Muscle Spasm Ibuprofen [Motrin] 600 mg PO Q8HR PRN #30 tab PRN Reason: Pain Is patient prescribed a controlled substance at d/c from ED?: No Referrals: Jose Sanches MD [Primary Care Provider] - 1-2 days Time of Disposition: 11:30
[2019-12-01 11:53] VITALS: BP 158/89; PULSE 90; TEMP 97.9
== END 2019-12-01 11:53 | disposition home or self-care (01) ==
LOC: EC 10:26
DX: M79.12 Myalgia of auxiliary muscles, head and neck (principal); I10 Essential (primary) hypertension; J45.909 Unspecified asthma, uncomplicated; F17.200 Nicotine dependence, unspecified, uncomplicated; Z79.51 Long term (current) use of inhaled steroids; Z88.0 Allergy status to penicillin; Z91.013 Allergy to seafood
CPT/HCPCS: 96372; 99283; J3360

== ENCOUNTER 2020-02-05 03:15 | Emergency (ER) | payer OTHER ==
[2020-02-05 03:27] VITALS: TEMP 97.7
[2020-02-05 03:36] VITALS: RESP 20
[2020-02-05] MEDS ORDERED: DEXAMETHASONE 4 MG TAB PO STA (03:49)
[2020-02-05] MEDS ORDERED: IPRATROPIUM-ALBUTEROL 3 ML NEB INHALATION STA ×2 (03:49→03:50)
--- NOTE | 2020-02-05 03:53 | ED ---
SOB HPI - General Chief Complaint: Shortness of Breath Stated Complaint: Asthma,inhaler refill Time Seen by Provider: 02/05/20 03:16 Source: patient, RN notes reviewed, old records reviewed Mode of arrival: ambulatory Limitations: no limitations - History of Present Illness Initial Comments: This is a 39-year-old male DF for evaluation patient presents today for evaluation regards to shortness of breath cough and congestion. Increased wheezing and increased shortness of breath patient is a smoker with history of asthma and is currently out of his inhaler MD Complaint: shortness of breath, cough, "asthma attack" -: days(s) Radiation: other (none) Consistency: constant Improves With: bronchodilators Known History Of: asthma Context: recent URI Associated Symptoms: cough - Related Data Home Medications Medication Instructions Recorded Confirmed Albuterol Inhaler (Bulk) [Ventolin 2 puff INHALATION RT-Q6H PRN 08/06/19 08/06/19 Hfa Inhaler (Bulk)] Albuterol Nebulized [Ventolin 2.5 mg INHALATION RT-Q6H PRN 08/06/19 08/06/19 Nebulized] Previous Rx's Medication Instructions Recorded Albuterol Inhaler (Bulk) [Ventolin 2 puff INHALATION Q6HR PRN #1 08/06/19 Hfa Inhaler (Bulk)] inhaler Lisinopril [Zestril] 5 mg PO DAILY #15 tab 08/06/19 predniSONE [Deltasone] 20 mg PO BID #10 tab 08/06/19 Cyclobenzaprine [Flexeril] 10 mg PO TID PRN #15 tab 12/01/19 Ibuprofen [Motrin] 600 mg PO Q8HR PRN #30 tab 12/01/19 Albuterol Sulfate [Proair Hfa] 1 - 2 puff INHALATION Q4H PRN #1 02/05/20 inhaler predniSONE 50 mg PO DAILY #5 tab 02/05/20 Allergies Allergy/AdvReac Type Severity Reaction Status Date / Time amoxicillin Allergy Rash/Hives Verified 02/05/20 03:27 Penicillins Allergy Rash/Hives Verified 02/05/20 03:27 shellfish derived [Shellfish] Allergy Swelling Verified 02/05/20 03:27 Review of Systems ROS Statement: Those systems with pertinent positive or pertinent negative responses have been documented in the HPI. ROS Other: All systems not noted in ROS Statement are negative. Past Medical History Past Medical History: Asthma, Hypertension History of Any Multi-Drug Resistant Organisms: None Reported Past Surgical History: Orthopedic Surgery Additional Past Surgical History / Comment(s): finger surgery Past Psychological History: No Psychological Hx Reported Smoking Status: Current every day smoker Past Alcohol Use History: Occasional Past Drug Use History: Marijuana General Exam Limitations: no limitations General appearance: alert, in no apparent distress Head exam: Present: atraumatic, normocephalic, normal inspection Eye exam: Present: normal appearance, PERRL, EOMI. Absent: scleral icterus, conjunctival injection, periorbital swelling ENT exam: Present: normal exam, mucous membranes moist Neck exam: Present: normal inspection. Absent: tenderness, meningismus, lymphadenopathy Respiratory exam: Present: wheezes, decreased breath sounds, prolonged expiratory. Absent: respiratory distress, rales, rhonchi, stridor Cardiovascular Exam: Present: regular rate, normal rhythm, normal heart sounds. Absent: systolic murmur, diastolic murmur, rubs, gallop, clicks GI/Abdominal exam: Present: soft, normal bowel sounds. Absent: distended, tenderness, guarding, rebound, rigid Extremities exam: Present: normal inspection, full ROM, normal capillary refill. Absent: tenderness, pedal edema, joint swelling, calf tenderness Back exam: Present: normal inspection Neurological exam: Present: alert, oriented X3, CN II-XII intact Psychiatric exam: Present: normal affect, normal mood Skin exam: Present: warm, dry, intact, normal color. Absent: rash Course Vital Signs 02/05/20 02/05/20 03:24 03:34 Temperature 97.7 F Pulse Rate 84 Respiratory 16 20 Rate Blood Pressure 145/106 O2 Sat by Pulse 95 Oximetry Medical Decision Making - Medical Decision Making 39 male DF for evaluation of shortness with cough and congestion, asthma exacerbation, needs medical refill, asthma Disposition Clinical Impression: Asthma with acute exacerbation Disposition: HOME SELF-CARE Condition: Good Instructions (If sedation given, give patient instructions): Asthma (ED) Prescriptions: predniSONE 50 mg PO DAILY #5 tab Albuterol Sulfate [Proair Hfa] 1 - 2 puff INHALATION Q4H PRN #1 inhaler PRN Reason: Shortness Of Breath Is patient prescribed a controlled substance at d/c from ED?: No Referrals: Jose Sanches MD [Primary Care Provider] - 1-2 days
[2020-02-05 03:58] VITALS: BP 125/97
[2020-02-05 04:27] VITALS: PULSE 88
== END 2020-02-05 04:31 | disposition home or self-care (01) ==
LOC: EC 03:15
DX: J45.901 Unspecified asthma with (acute) exacerbation (principal); Z76.0 Encounter for issue of repeat prescription; F17.200 Nicotine dependence, unspecified, uncomplicated; Z88.0 Allergy status to penicillin; Z91.013 Allergy to seafood
CPT/HCPCS: 94640; 99285; J8540

== ENCOUNTER 2020-04-25 09:41 | Emergency (ER) | payer OTHER ==
[2020-04-25] MEDS ORDERED: HYOSCYAMINE ELIXIR 250 MCG/10 ML BTL ONE (10:00)
[2020-04-25] MEDS ORDERED: MAG HYDROX/AL HYDROX/SIMETH 30 ML CUP ONE (10:00)
[2020-04-25] MEDS ORDERED: IPRATROPIUM-ALBUTEROL 3 ML NEB ONE (10:00)
[2020-04-25] MEDS ORDERED: ONDANSETRON 4 MG/2 ML VIAL ONE (10:00)
[2020-04-25] MEDS ORDERED: methylPREDNISolone SOD SUCCI 125 MG/2 ML VIAL ONE (10:00)
[2020-04-25] MEDS ORDERED: FAMOTIDINE 20 MG/2 ML VIAL ONE (10:00)
[2020-04-25 13:14] LABS: ALT 36 U/L (4-49); AST 71 U/L (17-59); African American GFR (CKD) >90 (>60 ml/min/1.73 sqM); Albumin 4.7 g/dL (3.5-5.0); Alkaline Phosphatase 34 U/L (38-126); Amylase 47 U/L (30-110); Anion Gap 9 mmol/L; Blood Urea Nitrogen 10 mg/dL (9-20); Calcium 9.5 mg/dL (8.4-10.2); Carbon Dioxide 25 mmol/L (22-30); Chloride 102 mmol/L (98-107); Glucose 99 mg/dL (74-99); Magnesium 1.6 mg/dL (1.6-2.3); Non-African American GFR(CKD) >90 (>60 ml/min/1.73 sqM); Potassium 3.6 mmol/L (3.5-5.1); Sodium 136 mmol/L (137-145); Total Bilirubin 4.7 mg/dL (0.2-1.3); Total Protein 7.5 g/dL (6.3-8.2)
--- NOTE | 2020-04-25 14:05 | XR ---
EXAMINATION TYPE: XR chest 2V DATE OF EXAM: 04/25/2020 COMPARISON: Prior chest x-ray 08/06/2019 HISTORY: Pain TECHNIQUE: Frontal and lateral views of the chest are obtained. FINDINGS: There is no focal air space opacity, pleural effusion, or pneumothorax seen. The cardiac silhouette size is stable and within normal limits. The osseous structures are intact. IMPRESSION: No acute cardiopulmonary process.
[2020-04-25 14:08] LABS: Partial Thromboplastin Time 23.6 sec (22.0-30.0); Prothrombin Time 10.7 sec (9.0-12.0)
[2020-04-25 14:20] LABS: Basophils % (A) 1 %; Eosinophils # (A) 0.4 k/uL (0-0.7); Eosinophils % (A) 9 %; HGB 15.2 gm/dL (13.0-17.5); Lymphocytes # (A) 1.4 k/uL (1.0-4.8); Lymphocytes % (A) 28 %; MCHC 34.5 g/dL (31.0-37.0); MCV 101.4 fL (80.0-100.0); Mean Platelet Volume 7.7; Monocytes # (A) 0.3 k/uL (0-1.0); Monocytes % (A) 6 %; Neutrophils # (A) 2.6 k/uL (1.3-7.7); Neutrophils % (A) 54 %; Platelet Count 217 k/uL (150-450); RBC 4.34 m/uL (4.30-5.90); RDW 12.5 % (11.5-15.5); WBC 4.8 k/uL (3.8-10.6)
[2020-04-25] MEDS ORDERED: SODIUM CHLORIDE 0.9% 1,000 ML IV SCH (15:00)
--- NOTE | 2020-04-25 15:01 | P.HPIM ---
History of Present Illness patient is pleasant 48-year-old male came in with epigastric abdominal pain burning sensation moderate severity nonradiating associated nausea. Patient was also complaining of dark stools couple episodes today. Patient's hemoglobin is 15 patient had been going through a lot lately and has been drinking lately an daily basis he drinks a few beers and a pint of hard liquor a day. Been doing that for about few weeks now. Patient denied any fever chills. Review of Systems REVIEW OF SYSTEMS: CONSTITUTIONAL: No fever, no malaise, no fatigue. HEENT: No recent visual problems or hearing problems. Denied any sore throat. CARDIOVASCULAR: No chest pain, orthopnea, PND, no palpitations, no syncope. PULMONARY: No shortness of breath, no cough, no hemoptysis. GASTROINTESTINAL: as mentioned in HPI. NEUROLOGICAL: No headaches, no weakness, no numbness. HEMATOLOGICAL: Denies any bleeding or petechiae. GENITOURINARY: Denies any burning micturition, frequency, or urgency. MUSCULOSKELETAL/RHEUMATOLOGICAL: Denies any joint pain, swelling, or any muscle pain. ENDOCRINE: Denies any polyuria or polydipsia. The rest of the 14-point review of systems is negative. Past Medical History Past Medical History: Asthma, Hypertension History of Any Multi-Drug Resistant Organisms: None Reported Past Surgical History: Orthopedic Surgery Additional Past Surgical History / Comment(s): finger surgery Past Psychological History: No Psychological Hx Reported Smoking Status: Current every day smoker Past Alcohol Use History: Occasional Past Drug Use History: Marijuana Medications and Allergies Home Medications Medication Instructions Recorded Confirmed Type Albuterol Sulfate [Albuterol 2 puff PO RT-Q4H PRN 04/25/20 04/25/20 History Sulfate Hfa] Allergies Allergy/AdvReac Type Severity Reaction Status Date / Time amoxicillin Allergy Rash/Hives Verified 04/25/20 14:02 Penicillins Allergy Rash/Hives Verified 04/25/20 14:02 shellfish derived [Shellfish] Allergy Swelling Verified 04/25/20 14:02 Physical Exam PHYSICAL EXAMINATION: GENERAL: The patient is alert and oriented x3, not in any acute distress. Well developed, well nourished. HEENT: Pupils are round and equally reacting to light. EOMI. No scleral icterus. No conjunctival pallor. Normocephalic, atraumatic. No pharyngeal erythema. No thyromegaly. CARDIOVASCULAR: S1 and S2 present. No murmurs, rubs, or gallops. PULMONARY: Chest is clear to auscultation, no wheezing or crackles. ABDOMEN: Soft, nontender, nondistended, normoactive bowel sounds. No palpable organomegaly. MUSCULOSKELETAL: No joint swelling or deformity. EXTREMITIES: No cyanosis, clubbing, or pedal edema. NEUROLOGICAL: Gross neurological examination did not reveal any focal deficits. SKIN: No rashes. Results CBC & Chem 7: 04/25/20 09:30 04/25/20 09:30 Labs: Abnormal Lab Results - Last 24 Hours (Table) 04/25/20 04/25/20 Range/Units 09:30 09:30 MCV 101.4 H (80.0-100.0) fL Sodium 136 L (137-145) mmol/L Total Bilirubin 4.7 H (0.2-1.3) mg/dL AST 71 H (17-59) U/L Alkaline Phosphatase 34 L (38-126) U/L Assessment and Plan Plan: -acute upper GI bleed: Most probably peptic ulcer disease gastric probably was consulted patient was started on Protonix and IV fluids. -alcohol abuse: Counseling was provided -transaminitis with mild hyperbilirubinemia: most probably secondary to alcoholic hepatitis expected to improve with cessation of alcohol
[2020-04-25] MEDS ORDERED: PANTOPRAZOLE 40 MG/10 ML VIAL IVP SCH (21:00)
== END 2020-04-25 14:20 | disposition left against medical advice (07) ==
LOC: EC 09:41 → 4SSUR 12:39 → UNDOADMIN 12:39 → UNDODISIN 14:30
DX: J45.909 Unspecified asthma, uncomplicated (principal); K27.9 Peptic ulcer, site unspecified, unspecified as acute or chronic, without hemorrhage or perforation; K70.10 Alcoholic hepatitis without ascites; F17.200 Nicotine dependence, unspecified, uncomplicated; Z20.828 Contact with and (suspected) exposure to other viral communicable diseases; Z87.19 Personal history of other diseases of the digestive system; Z88.0 Allergy status to penicillin
CPT/HCPCS: 99285; 96374; 96375 ×2; 96361; 36415; 94640; 80053; 82150; 83605; 83690; 83735; 85025; 85610; 85730; 71046; U0003

== ENCOUNTER 2020-07-21 19:51 | Emergency (ER) | payer OTHER ==
[2020-07-21 21:01] LABS: Basophils # (A) 0.1 k/uL (0-0.2); Basophils % (A) 1 %; Eosinophils # (A) 0.3 k/uL (0-0.7); Eosinophils % (A) 4 %; HCT 43.8 % (39.0-53.0); HGB 14.6 gm/dL (13.0-17.5); Lymphocytes # (A) 1.5 k/uL (1.0-4.8); Lymphocytes % (A) 23 %; MCH 33.5 pg (25.0-35.0); MCHC 33.2 g/dL (31.0-37.0); MCV 100.8 fL (80.0-100.0); Monocytes # (A) 0.4 k/uL (0-1.0); Monocytes % (A) 5 %; Neutrophils # (A) 4.2 k/uL (1.3-7.7); Neutrophils % (A) 64 %; Platelet Count 230 k/uL (150-450); RBC 4.35 m/uL (4.30-5.90); RDW 13.2 % (11.5-15.5); WBC 6.6 k/uL (3.8-10.6)
[2020-07-21 21:18] LABS: ALT 86 U/L (4-49); AST 179 U/L (17-59); African American GFR (CKD) >90 (>60 ml/min/1.73 sqM); Albumin 4.9 g/dL (3.5-5.0); Alkaline Phosphatase 38 U/L (38-126); Anion Gap 11 mmol/L; Blood Urea Nitrogen 8 mg/dL (9-20); Calcium 9.7 mg/dL (8.4-10.2); Carbon Dioxide 23 mmol/L (22-30); Chloride 103 mmol/L (98-107); Glucose 108 mg/dL (74-99); Non-African American GFR(CKD) >90 (>60 ml/min/1.73 sqM); Potassium 3.7 mmol/L (3.5-5.1); Sodium 137 mmol/L (137-145); Total Bilirubin 3.2 mg/dL (0.2-1.3); Total Protein 7.9 g/dL (6.3-8.2)
[2020-07-21 21:28] LABS: Partial Thromboplastin Time 22.6 sec (22.0-30.0); Prothrombin Time 9.9 sec (9.0-12.0)
[2020-07-21] MEDS ORDERED: SODIUM CHLORIDE 0.9% 1,000 ML IV ONE (21:33)
--- NOTE | 2020-07-21 21:57 | CT ---
EXAMINATION TYPE: CT abdomen pelvis w con DATE OF EXAM: 07/21/2020 COMPARISON: None HISTORY: Abdominal pain. CT DLP: 574.4 mGycm Automated exposure control for dose reduction was used. CONTRAST: Performed with IV Contrast, patient injected with 100 mL of Isovue 300. Lung bases are clear. There is no pleural effusion. Heart size is normal. Liver spleen stomach pancreas gallbladder appear normal. Bile ducts are not dilated. There is no adrenal mass. Kidneys show satisfactory contrast opacification. There is no hydronephrosi s. Delayed images show normal renal excretion. There is no retroperitoneal adenopathy. Bladder disten ds smoothly. There is no inguinal hernia. There is no free fluid in the pelvis. There is no mesenteric edema. There is no ascites or free air. There is no bowel obstruction. Appendi x appears to be visualized posteriorly in the paracolic gutter and filled with air and appears normal . The lumbar spine is intact. There is no compression fracture. The bony pelvis is intact. IMPRESSION: Negative CT scan abdomen and pelvis. Normal appendix.
[2020-07-21] MEDS ORDERED: FAMOTIDINE 20 MG/2 ML VIAL IV STA (22:45)
--- NOTE | 2020-07-21 22:45 | ED ---
General Adult HPI - General Chief complaint: GI Bleed Stated complaint: Ulcer, reaction to meds Time Seen by Provider: 07/21/20 20:22 Source: patient, RN notes reviewed, old records reviewed Mode of arrival: ambulatory Limitations: no limitations - History of Present Illness Initial comments: 40-year-old male patient passed no history of alcohol abuse as well as reported stomach ulcer since ED for evaluation of rectal bleeding. Patient reports that he fell sloping of rectal bleeding last 2 days after he wipes while going to the bathroom. Patient states the he has had some mild achy left lower quadrant abdominal pain. Patient proceeding with his primary care doctor yesterday immediately after he noticed the blood and was initiated on omeprazole. Patient reports that he is not having abdominal pain at this time. Otherwise feels fine. Denies any other acute complaints. Systemic: Pt denies fatigue, fever/chills, rash. Pt denies weakness, night sweats, weight loss. Neuro: Pt denies headache, visual disturbances, syncope or pre-syncope. HEENT: Pt denies ocular discharge or irritation, otalgia, rhinorrhea, pharyngitis or notable lymphadenopathy. Cardiopulmonary: Pt denies chest pain, SOB, heart palpitations, dyspnea on exertion. Abdominal/GI: Pt denies n/v/d. : Pt denies dysuria, burning w/ urination, frequency/urgency. Denies new onset urinary or bowel incontinence. MSK: Pt denies myalgia, loss of strength or function in extremities. Neuro: Pt denies new onset weakness, paresthesias. - Related Data Home Medications Medication Instructions Recorded Confirmed Albuterol Sulfate [Albuterol 2 puff PO RT-Q4H PRN 04/25/20 04/25/20 Sulfate Hfa] Previous Rx's Medication Instructions Recorded Omeprazole [PriLOSEC] 40 mg PO DAILY #14 cap 04/26/20 Famotidine [Pepcid] 20 mg PO BID #20 tablet 07/21/20 Allergies Allergy/AdvReac Type Severity Reaction Status Date / Time amoxicillin Allergy Rash/Hives Verified 07/21/20 20:05 Penicillins Allergy Rash/Hives Verified 07/21/20 20:05 shellfish derived [Shellfish] Allergy Swelling Verified 07/21/20 20:05 Review of Systems ROS Statement: Those systems with pertinent positive or pertinent negative responses have been documented in the HPI. ROS Other: All systems not noted in ROS Statement are negative. Past Medical History Past Medical History: Asthma, Hypertension History of Any Multi-Drug Resistant Organisms: None Reported Past Surgical History: Orthopedic Surgery Additional Past Surgical History / Comment(s): finger surgery Past Psychological History: No Psychological Hx Reported Smoking Status: Current some day smoker Past Alcohol Use History: Occasional Past Drug Use History: Marijuana General Exam - General Exam Comments Initial Comments: Constitutional: NAD, AOX3, Pt has pleasant affect. HEENT: NC/AT, trachea midline, neck supple, no lymphadenopathy. Posterior phary nx non erythematous, without exudates. External ears appear normal, without discharge. Mucous membranes moist. Eyes PERRLA, EOM intact. There is no scleral icterus. No pallor noted. Cardiopulmonary: RRR, no murmurs, rubs or gallops, no JVD noted. Lungs CTAB in anterior and posterior bradley. No peripheral edema. Abdominal exam: Abdomen soft and non-distended. Abdomen non-tender to palpation in all 4 quadrants. Bowel sounds active in LLQ. No hepatosplenomegaly. No ecchymosis. Rectal exam did not display any external or internal hemorrhoids noted. No gross blood noted on exam. Neuro: CN II-XII grossly intact. No nuchal rigidity. No raccon eyes, no bingham sign, no hemotympanum. No cervical spinal tenderness. MSK: No posterior calf tenderness bilaterally, homans sign negative bilaterally. Posterior tibialis and radial pulse +2 bilaterally. Sensation intact in upper and lower extremities. Full active ROM in upper and lower extremities, 5/5 stregnth. Limitations: no limitations Course Vital Signs 07/21/20 07/21/20 20:02 21:57 Temperature 97.9 F Pulse Rate 95 97 Respiratory 16 16 Rate Blood Pressure 141/89 159/114 O2 Sat by Pulse 98 100 Oximetry Medical Decision Making - Medical Decision Making 40-year-old male patient presents ED for evaluation of rectal bleeding. Patient vital signs are stable, afebrile. Physical exam displayed nontender abdomen. Apparently investigations reveal hemoglobin 14.6, coagulation studies are within acceptable limits and tinnitus as well as hyperbilirubinemia around baseline for patient. Occult blood is positive. CT abdomen and pelvis negative for acute process. Protonix and omeprazole. I will continue the protonix and add an H2 RA. Patient also wants to care for it. Shared decision making patient is comfortable with discharge close outpatient follow-up with primary care provider as well as gastroenterologists and strict return precautions. Case discussed with Dr. Carrillo. - Lab Data Result diagrams: 07/21/20 20:46 07/21/20 20:46 Lab Results 07/21/20 07/21/20 07/21/20 Range/Units 20:46 20:46 20:46 WBC 6.6 (3.8-10.6) k/uL RBC 4.35 (4.30-5.90) m/uL Hgb 14.6 (13.0-17.5) gm/dL Hct 43.8 (39.0-53.0) % MCV 100.8 H (80.0-100.0) fL MCH 33.5 (25.0-35.0) pg MCHC 33.2 (31.0-37.0) g/dL RDW 13.2 (11.5-15.5) % Plt Count 230 (150-450) k/uL Neutrophils % 64 % Lymphocytes % 23 % Monocytes % 5 % Eosinophils % 4 % Basophils % 1 % Neutrophils # 4.2 (1.3-7.7) k/uL Lymphocytes # 1.5 (1.0-4.8) k/uL Monocytes # 0.4 (0-1.0) k/uL Eosinophils # 0.3 (0-0.7) k/uL Basophils # 0.1 (0-0.2) k/uL PT 9.9 (9.0-12.0) sec INR 1.0 (<1.2) APTT 22.6 (22.0-30.0) sec Sodium 137 (137-145) mmol/L Potassium 3.7 (3.5-5.1) mmol/L Chloride 103 (98-107) mmol/L Carbon Dioxide 23 (22-30) mmol/L Anion Gap 11 mmol/L BUN 8 L (9-20) mg/dL Creatinine 0.80 (0.66-1.25) mg/dL Est GFR (CKD-EPI)AfAm >90 (>60 ml/min/1.73 sqM) Est GFR (CKD-EPI)NonAf >90 (>60 ml/min/1.73 sqM) Glucose 108 H (74-99) mg/dL Plasma Lactic Acid Woody (0.7-2.0) mmol/L Calcium 9.7 (8.4-10.2) mg/dL Total Bilirubin 3.2 H (0.2-1.3) mg/dL AST 179 H (17-59) U/L ALT 86 H (4-49) U/L Alkaline Phosphatase 38 (38-126) U/L Troponin I (0.000-0.034) ng/mL Total Protein 7.9 (6.3-8.2) g/dL Albumin 4.9 (3.5-5.0) g/dL Stool Occult Blood (Negative) Blood Type Blood Type Confirm Blood Type Recheck Bld Type Recheck Status Antibody Screen Spec Expiration Date 07/21/20 07/21/20 07/21/20 Range/Units 20:46 20:46 20:46 WBC (3.8-10.6) k/uL RBC (4.30-5.90) m/uL Hgb (13.0-17.5) gm/dL Hct (39.0-53.0) % MCV (80.0-100.0) fL MCH (25.0-35.0) pg MCHC (31.0-37.0) g/dL RDW (11.5-15.5) % Plt Count (150-450) k/uL Neutrophils % % Lymphocytes % % Monocytes % % Eosinophils % % Basophils % % Neutrophils # (1.3-7.7) k/uL Lymphocytes # (1.0-4.8) k/uL Monocytes # (0-1.0) k/uL Eosinophils # (0-0.7) k/uL Basophils # (0-0.2) k/uL PT (9.0-12.0) sec INR (<1.2) APTT (22.0-30.0) sec Sodium (137-145) mmol/L Potassium (3.5-5.1) mmol/L Chloride (98-107) mmol/L Carbon Dioxide (22-30) mmol/L Anion Gap mmol/L BUN (9-20) mg/dL Creatinine (0.66-1.25) mg/dL Est GFR (CKD-EPI)AfAm (>60 ml/min/1.73 sqM) Est GFR (CKD-EPI)NonAf (>60 ml/min/1.73 sqM) Glucose (74-99) mg/dL Plasma Lactic Acid Woody 2.6 H* (0.7-2.0) mmol/L Calcium (8.4-10.2) mg/dL Total Bilirubin (0.2-1.3) mg/dL AST (17-59) U/L ALT (4-49) U/L Alkaline Phosphatase (38-126) U/L Troponin I <0.012 (0.000-0.034) ng/mL Total Protein (6.3-8.2) g/dL Albumin (3.5-5.0) g/dL Stool Occult Blood Positive (Negative) Blood Type Blood Type Confirm Blood Type Recheck Bld Type Recheck Status Antibody Screen Spec Expiration Date 07/21/20 07/21/20 Range/Units 20:46 20:46 WBC (3.8-10.6) k/uL RBC (4.30-5.90) m/uL Hgb (13.0-17.5) gm/dL Hct (39.0-53.0) % MCV (80.0-100.0) fL MCH (25.0-35.0) pg MCHC (31.0-37.0) g/dL RDW (11.5-15.5) % Plt Count (150-450) k/uL Neutrophils % % Lymphocytes % % Monocytes % % Eosinophils % % Basophils % % Neutrophils # (1.3-7.7) k/uL Lymphocytes # (1.0-4.8) k/uL Monocytes # (0-1.0) k/uL Eosinophils # (0-0.7) k/uL Basophils # (0-0.2) k/uL PT (9.0-12.0) sec INR (<1.2) APTT (22.0-30.0) sec Sodium (137-145) mmol/L Potassium (3.5-5.1) mmol/L Chloride (98-107) mmol/L Carbon Dioxide (22-30) mmol/L Anion Gap mmol/L BUN (9-20) mg/dL Creatinine (0.66-1.25) mg/dL Est GFR (CKD-EPI)AfAm (>60 ml/min/1.73 sqM) Est GFR (CKD-EPI)NonAf (>60 ml/min/1.73 sqM) Glucose (74-99) mg/dL Plasma Lactic Acid Woody (0.7-2.0) mmol/L Calcium (8.4-10.2) mg/dL Total Bilirubin (0.2-1.3) mg/dL AST (17-59) U/L ALT (4-49) U/L Alkaline Phosphatase (38-126) U/L Troponin I (0.000-0.034) ng/mL Total Protein (6.3-8.2) g/dL Albumin (3.5-5.0) g/dL Stool Occult Blood (Negative) Blood Type A Positive Blood Type Confirm A Positive Blood Type Recheck No Previous Record Bld Type Recheck Status CABO Indicated Antibody Screen NEGATIVE Spec Expiration Date 07/24/2020 - 234 Disposition Clinical Impression: Rectal bleeding Disposition: HOME SELF-CARE Condition: Stable Instructions (If sedation given, give patient instructions): Rectal Bleeding (ED) Additional Instructions: Follow up with primary care provider tomorrow as well as gastroenterologists tomorrow. Take the Protonix 20 mg twice per day. Additionally take the famotidine as directed. Return to ED with any worsening symptoms. If bleeding or pain returns. Prescriptions: Famotidine [Pepcid] 20 mg PO BID #20 tablet Is patient prescribed a controlled substance at d/c from ED?: No Referrals: Jose Sanches MD [Primary Care Provider] - 1-2 days
--- NOTE | 2020-07-21 22:55 | ED ---
Medical Decision Making - Lab Data Result diagrams: 07/21/20 20:46 07/21/20 20:46 Lab Results 07/21/20 07/21/20 07/21/20 Range/Units 20:46 20:46 20:46 WBC 6.6 (3.8-10.6) k/uL RBC 4.35 (4.30-5.90) m/uL Hgb 14.6 (13.0-17.5) gm/dL Hct 43.8 (39.0-53.0) % MCV 100.8 H (80.0-100.0) fL MCH 33.5 (25.0-35.0) pg MCHC 33.2 (31.0-37.0) g/dL RDW 13.2 (11.5-15.5) % Plt Count 230 (150-450) k/uL Neutrophils % 64 % Lymphocytes % 23 % Monocytes % 5 % Eosinophils % 4 % Basophils % 1 % Neutrophils # 4.2 (1.3-7.7) k/uL Lymphocytes # 1.5 (1.0-4.8) k/uL Monocytes # 0.4 (0-1.0) k/uL Eosinophils # 0.3 (0-0.7) k/uL Basophils # 0.1 (0-0.2) k/uL PT 9.9 (9.0-12.0) sec INR 1.0 (<1.2) APTT 22.6 (22.0-30.0) sec Sodium 137 (137-145) mmol/L Potassium 3.7 (3.5-5.1) mmol/L Chloride 103 (98-107) mmol/L Carbon Dioxide 23 (22-30) mmol/L Anion Gap 11 mmol/L BUN 8 L (9-20) mg/dL Creatinine 0.80 (0.66-1.25) mg/dL Est GFR (CKD-EPI)AfAm >90 (>60 ml/min/1.73 sqM) Est GFR (CKD-EPI)NonAf >90 (>60 ml/min/1.73 sqM) Glucose 108 H (74-99) mg/dL Plasma Lactic Acid Woody (0.7-2.0) mmol/L Calcium 9.7 (8.4-10.2) mg/dL Total Bilirubin 3.2 H (0.2-1.3) mg/dL AST 179 H (17-59) U/L ALT 86 H (4-49) U/L Alkaline Phosphatase 38 (38-126) U/L Troponin I (0.000-0.034) ng/mL Total Protein 7.9 (6.3-8.2) g/dL Albumin 4.9 (3.5-5.0) g/dL Stool Occult Blood (Negative) Blood Type Blood Type Confirm Blood Type Recheck Bld Type Recheck Status Antibody Screen Spec Expiration Date 07/21/20 07/21/20 07/21/20 Range/Units 20:46 20:46 20:46 WBC (3.8-10.6) k/uL RBC (4.30-5.90) m/uL Hgb (13.0-17.5) gm/dL Hct (39.0-53.0) % MCV (80.0-100.0) fL MCH (25.0-35.0) pg MCHC (31.0-37.0) g/dL RDW (11.5-15.5) % Plt Count (150-450) k/uL Neutrophils % % Lymphocytes % % Monocytes % % Eosinophils % % Basophils % % Neutrophils # (1.3-7.7) k/uL Lymphocytes # (1.0-4.8) k/uL Monocytes # (0-1.0) k/uL Eosinophils # (0-0.7) k/uL Basophils # (0-0.2) k/uL PT (9.0-12.0) sec INR (<1.2) APTT (22.0-30.0) sec Sodium (137-145) mmol/L Potassium (3.5-5.1) mmol/L Chloride (98-107) mmol/L Carbon Dioxide (22-30) mmol/L Anion Gap mmol/L BUN (9-20) mg/dL Creatinine (0.66-1.25) mg/dL Est GFR (CKD-EPI)AfAm (>60 ml/min/1.73 sqM) Est GFR (CKD-EPI)NonAf (>60 ml/min/1.73 sqM) Glucose (74-99) mg/dL Plasma Lactic Acid Woody 2.6 H* (0.7-2.0) mmol/L Calcium (8.4-10.2) mg/dL Total Bilirubin (0.2-1.3) mg/dL AST (17-59) U/L ALT (4-49) U/L Alkaline Phosphatase (38-126) U/L Troponin I <0.012 (0.000-0.034) ng/mL Total Protein (6.3-8.2) g/dL Albumin (3.5-5.0) g/dL Stool Occult Blood Positive (Negative) Blood Type Blood Type Confirm Blood Type Recheck Bld Type Recheck Status Antibody Screen Spec Expiration Date 07/21/20 07/21/20 Range/Units 20:46 20:46 WBC (3.8-10.6) k/uL RBC (4.30-5.90) m/uL Hgb (13.0-17.5) gm/dL Hct (39.0-53.0) % MCV (80.0-100.0) fL MCH (25.0-35.0) pg MCHC (31.0-37.0) g/dL RDW (11.5-15.5) % Plt Count (150-450) k/uL Neutrophils % % Lymphocytes % % Monocytes % % Eosinophils % % Basophils % % Neutrophils # (1.3-7.7) k/uL Lymphocytes # (1.0-4.8) k/uL Monocytes # (0-1.0) k/uL Eosinophils # (0-0.7) k/uL Basophils # (0-0.2) k/uL PT (9.0-12.0) sec INR (<1.2) APTT (22.0-30.0) sec Sodium (137-145) mmol/L Potassium (3.5-5.1) mmol/L Chloride (98-107) mmol/L Carbon Dioxide (22-30) mmol/L Anion Gap mmol/L BUN (9-20) mg/dL Creatinine (0.66-1.25) mg/dL Est GFR (CKD-EPI)AfAm (>60 ml/min/1.73 sqM) Est GFR (CKD-EPI)NonAf (>60 ml/min/1.73 sqM) Glucose (74-99) mg/dL Plasma Lactic Acid Woody (0.7-2.0) mmol/L Calcium (8.4-10.2) mg/dL Total Bilirubin (0.2-1.3) mg/dL AST (17-59) U/L ALT (4-49) U/L Alkaline Phosphatase (38-126) U/L Troponin I (0.000-0.034) ng/mL Total Protein (6.3-8.2) g/dL Albumin (3.5-5.0) g/dL Stool Occult Blood (Negative) Blood Type A Positive Blood Type Confirm A Positive Blood Type Recheck No Previous Record Bld Type Recheck Status CABO Indicated Antibody Screen NEGATIVE Spec Expiration Date 07/24/2020 - 2345 Disposition Clinical Impression: Rectal bleeding Disposition: HOME SELF-CARE Condition: Stable Instructions (If sedation given, give patient instructions): Rectal Bleeding (ED) Additional Instructions: Follow up with primary care provider tomorrow as well as gastroenterologists tomorrow. Take the omeprazole and sucralfate as directed by PCP. Additionally take the famotidine as directed. Return to ED with any worsening symptoms. If bleeding or pain returns. Prescriptions: Famotidine [Pepcid] 20 mg PO BID #20 tablet Is patient prescribed a controlled substance at d/c from ED?: No Referrals: Jose Sanches MD [Primary Care Provider] - 1-2 days
[2020-07-21 23:41] VITALS: BP 139/99; PULSE 85; RESP 16; TEMP 98
== END 2020-07-21 23:42 | disposition home or self-care (01) ==
LOC: EC 19:51
DX: K62.5 Hemorrhage of anus and rectum (principal); R10.32 Left lower quadrant pain; J45.909 Unspecified asthma, uncomplicated; F17.200 Nicotine dependence, unspecified, uncomplicated; Z88.0 Allergy status to penicillin; Z91.013 Allergy to seafood
CPT/HCPCS: 36415; 86900; 86901; 80053; 83605; 84484; 85025; 85610; 85730; 86850; 82272; 74177; 99285; 96374; 96361; Q9967

== ENCOUNTER 2020-12-26 08:13 | Emergency (ER) | payer OTHER ==
[2020-12-26 08:18] VITALS: TEMP 98
[2020-12-26] MEDS ORDERED: ONDANSETRON 4 MG/2 ML VIAL IVP STA (08:32)
[2020-12-26] MEDS ORDERED: MAG HYDROX/AL HYDROX/SIMETH 30 ML, HYOSCYAMINE ELIXIR 10 ML, LIDOCAINE VISCOUS 2% 10 ML PO STA ×3 (08:32)
[2020-12-26] MEDS ORDERED: SODIUM CHLORIDE 0.9% 1,000 ML IV ONE (08:32)
[2020-12-26] MEDS ORDERED: PANTOPRAZOLE 40 MG/10 ML VIAL IVP STA (08:32)
--- NOTE | 2020-12-26 08:43 | ED ---
Chest Pain HPI - General Chief Complaint: Chest Pain Stated Complaint: chest pain Time Seen by Provider: 12/26/20 08:20 Source: patient Mode of arrival: ambulatory Limitations: no limitations - History of Present Illness Initial Comments: 40-year-old male with past medical history of asthma, hypertension and GERD who presents to the emergency department with reported epigastric abdominal pain. Patient states that he had pain which awoke him from sleep around 7 AM. Patient has associated nausea with some vomiting. Pain is worse when he lays flat. He reports to history of similar pain in the past when he had an episode of gastritis and flare of his peptic ulcer disease. Patient admits to eating a large pizza, drinking 2 L of pop and 4 beers last night. Patient does admit that he is a bindge drinker. Patient arrives and is hypertensive. States that he does have a history of hypertension however symptoms improved 5 months ago after he stopped drinking. His primary care doctor did take him off of his high blood pressure medication at that time. Patient denies any cardiac history. No pleuritic pain. No ripping or tearing sensation. Denies any fevers or chills. No cough. Patient does follow with GI. No other alleviating, precipitating factors - Related Data Home Medications Medication Instructions Recorded Confirmed Albuterol Sulfate [Albuterol 2 puff INHALATION RT-Q4H PRN 04/25/20 12/26/20 Sulfate Hfa] predniSONE 10 mg PO DIRECTED 12/26/20 12/26/20 Previous Rx's Medication Instructions Recorded Famotidine [Pepcid] 20 mg PO DAILY #30 tablet 12/26/20 Omeprazole [PriLOSEC] 40 mg PO DAILY #30 cap 12/26/20 amLODIPine [Norvasc] 5 mg PO DAILY #30 tab 12/26/20 Allergies Allergy/AdvReac Type Severity Reaction Status Date / Time amoxicillin Allergy Rash/Hives Verified 12/26/20 09:16 Penicillins Allergy Rash/Hives Verified 12/26/20 09:16 shellfish derived [Shellfish] Allergy Swelling Verified 12/26/20 09:16 Review of Systems ROS Statement: Those systems with pertinent positive or pertinent negative responses have been documented in the HPI. ROS Other: All systems not noted in ROS Statement are negative. EKG Findings - EKG Comments: EKG Findings:: EKG demonstrates normal sinus rhythm with a ventricular rate of 78. MS interval 160. QRS 86. QTC 426. No acute ST segment elevations or depressions concerning for ischemic changes Past Medical History Past Medical History: Asthma, Hypertension History of Any Multi-Drug Resistant Organisms: None Reported Past Surgical History: Orthopedic Surgery Additional Past Surgical History / Comment(s): finger surgery Past Psychological History: No Psychological Hx Reported Smoking Status: Current some day smoker Past Alcohol Use History: Occasional Past Drug Use History: None Reported General Exam Limitations: no limitations General appearance: alert, in no apparent distress Head exam: Present: atraumatic, normocephalic, normal inspection Eye exam: Present: normal appearance, PERRL, EOMI. Absent: scleral icterus, conjunctival injection, periorbital swelling ENT exam: Present: normal exam, mucous membranes moist Neck exam: Present: normal inspection. Absent: tenderness, meningismus, lymphadenopathy Respiratory exam: Present: normal lung sounds bilaterally. Absent: respiratory distress, wheezes, rales, rhonchi, stridor Cardiovascular Exam: Present: regular rate, normal rhythm, normal heart sounds. Absent: systolic murmur, diastolic murmur, rubs, gallop, clicks GI/Abdominal exam: Present: soft, tenderness (epigastric), normal bowel sounds. Absent: distended, guarding, rebound, rigid Extremities exam: Present: normal inspection, full ROM, normal capillary refill. Absent: tenderness, pedal edema, joint swelling, calf tenderness Back exam: Present: normal inspection Neurological exam: Present: alert, oriented X3, CN II-XII intact Psychiatric exam: Present: normal affect, normal mood Skin exam: Present: warm, dry, intact, normal color. Absent: rash Course Vital Signs 12/26/20 12/26/20 12/26/20 08:16 09:25 10:40 Temperature 98 F Pulse Rate 90 74 79 Respiratory 18 18 16 Rate Blood Pressure 180/120 183/127 157/126 O2 Sat by Pulse 100 99 97 Oximetry Chest Pain MDM - MDM Upon arrival patient is placed into room 2. A thorough history and physical exam was performed. IV is established. Patient was given 4 mg of Zofran, a liter bolus of normal saline, 40 mg of Protonix and GI cocktail. Laboratory studies are conducted. Ultrasound is performed. Laboratory studies are reviewed do demonstrate an AST of 89. Troponin negative. Chest x-ray demonstrates no acute cardiopulmonary process. Gallbladder ultrasound demonstrates mild hepatomegaly. Patient is reevaluated and reports to complete resolution of his symptoms. I discussed diagnosis, differential and treatment options. Patient requesting discharge at this time. Did discuss with him the importance of following up with his primary care doctor next week for repeat liver enzymes studies. Patient is to stop alcohol intake at this time. He'll be placed on Prilosec and Pepcid for his symptoms. Patient is to follow up with GI for possible EGD. Primary care doctor needs to recheck his blood pressure office. He will be started on Norvasc. Patient agreed to this treatment plan. Strict return parameters discussed. Patient discharged in stable condition Disposition Clinical Impression: Epigastric pain, Hyperbilirubinemia, Alcohol abuse, Hypertension Disposition: HOME SELF-CARE Condition: Serious Instructions (If sedation given, give patient instructions): Abdominal Pain (ED), Jaundice (ED) Additional Instructions: Quit drinking alcohol. You need to have your bilirubin levels rechecked by Dr. Sanches next week. Start taking the blood pressure medication as directed and follow-up with him for repeat evaluation to make sure it has come down. Return to the emergency department for any new or worsening symptoms Prescriptions: amLODIPine [Norvasc] 5 mg PO DAILY #30 tab Famotidine [Pepcid] 20 mg PO DAILY #30 tablet Omeprazole [PriLOSEC] 40 mg PO DAILY #30 cap Is patient prescribed a controlled substance at d/c from ED?: No Referrals: Jose Sanches MD [Primary Care Provider] - 1-2 days Time of Disposition: 11:20
[2020-12-26 08:51] LABS: Basophils # (A) 0.1 k/uL (0-0.2); Basophils % (A) 1 %; Eosinophils # (A) 0.3 k/uL (0-0.7); Eosinophils % (A) 7 %; HCT 42.3 % (39.0-53.0); HGB 14.8 gm/dL (13.0-17.5); Lymphocytes # (A) 1.4 k/uL (1.0-4.8); Lymphocytes % (A) 35 %; MCH 35.2 pg (25.0-35.0); MCV 100.3 fL (80.0-100.0); Mean Platelet Volume 7.1; Monocytes # (A) 0.2 k/uL (0-1.0); Monocytes % (A) 5 %; Neutrophils % (A) 50 %; Platelet Count 242 k/uL (150-450); RBC 4.22 m/uL (4.30-5.90); RDW 13.5 % (11.5-15.5); WBC 3.9 k/uL (3.8-10.6)
[2020-12-26 08:59] LABS: INR 1.1 (<1.2); Prothrombin Time 11.4 sec (9.0-12.0)
[2020-12-26 09:00] LABS: Partial Thromboplastin Time 23.1 sec (22.0-30.0)
[2020-12-26 09:01] LABS: ALT 40 U/L (4-49); AST 89 U/L (17-59); African American GFR (CKD) >90 (>60 ml/min/1.73 sqM); Albumin 4.4 g/dL (3.5-5.0); Alkaline Phosphatase 24 U/L (38-126); Anion Gap 10 mmol/L; Blood Urea Nitrogen 10 mg/dL (9-20); Calcium 9.1 mg/dL (8.4-10.2); Carbon Dioxide 27 mmol/L (22-30); Chloride 105 mmol/L (98-107); Glucose 115 mg/dL (74-99); Magnesium 1.6 mg/dL (1.6-2.3); Non-African American GFR(CKD) >90 (>60 ml/min/1.73 sqM); Potassium 3.6 mmol/L (3.5-5.1); Sodium 142 mmol/L (137-145); Total Bilirubin 5.7 mg/dL (0.2-1.3); Total Protein 7.4 g/dL (6.3-8.2)
[2020-12-26 09:10] LABS: Lipase 108 U/L (23-300)
--- NOTE | 2020-12-26 09:25 | XR ---
EXAMINATION TYPE: XR chest 2V DATE OF EXAM: 12/26/2020 COMPARISON: 04/25/2020 HISTORY: 40-year-old male chest pain TECHNIQUE: PA and lateral views FINDINGS: Cardiomediastinal silhouette, aorta, and pulmonary vasculature are within normal limits. No consolida tion or pleural effusion. IMPRESSION: No acute cardiopulmonary process.
[2020-12-26 10:41] VITALS: BP 157/126; PULSE 79; RESP 16
--- NOTE | 2020-12-26 11:00 | US ---
EXAMINATION TYPE: US gallbladder DATE OF EXAM: 12/26/2020 COMPARISON: NONE CLINICAL HISTORY: 40-year-old male epigastric pain, elevated bilirubin. Abdomen pain, nausea TECHNIQUE: Multiple sonographic images of the right upper quadrant are obtained. FINDINGS: EXAM MEASUREMENTS: Liver Length: 19.9 cm Gallbladder Wall: 0.2 cm CBD: 0.3 cm Right Kidney: 11.3 x 3.7 x 4.4 cm Pancreas: visualized portions wnl, tail limited by overlying midline bowel gas Liver: Mildly enlarged Gallbladder: wnl Evidence for sonographic Cotter's sign: no CBD: visualized portions wnl, limited by overlying bowel gas Right Kidney: wnl IMPRESSION: 1. Mild hepatomegaly at 19.9 cm. 2. No gallstones or biliary ductal dilatation.
== END 2020-12-26 11:36 | disposition home or self-care (01) ==
LOC: EC 08:13
DX: R10.13 Epigastric pain (principal); E80.6 Other disorders of bilirubin metabolism; F10.10 Alcohol abuse, uncomplicated; J45.909 Unspecified asthma, uncomplicated; I10 Essential (primary) hypertension; F17.200 Nicotine dependence, unspecified, uncomplicated; Z79.52 Long term (current) use of systemic steroids; Z79.899 Other long term (current) drug therapy; Z88.0 Allergy status to penicillin; Z91.013 Allergy to seafood; Y90.9 Presence of alcohol in blood, level not specified
CPT/HCPCS: 36415; 93005; 83880; 80053; 83690; 83735; 84484; 85025; 85610; 85730; 71046; 76705; 99285; 96374; 96375; 96361; J2405; C9113

== ENCOUNTER 2021-07-15 21:49 | Emergency (ER) | payer OTHER ==
[2021-07-15 22:26] VITALS: TEMP 98.5
--- NOTE | 2021-07-15 22:40 | ED ---
SOB HPI - General Chief Complaint: Shortness of Breath Stated Complaint: Asthma attack Time Seen by Provider: 07/15/21 22:39 Source: patient, RN notes reviewed, old records reviewed Mode of arrival: ambulatory Limitations: no limitations - History of Present Illness Initial Comments: This is a 42-year-old male to the emergency room today. Patient presents today for evaluation regards to severe shortness of breath weakness lightheadedness and dizziness. No abdominal pain no chest pain is having difficulty breathing. Patient is without fever but does complain of increased cough and congestion patient also several from high blood pressure as well as asthma MD Complaint: shortness of breath, cough -: days(s) Severity: moderate Severity scale (1-10): 4 Consistency: constant Improves With: nothing Worsens With: nothing Known History Of: COPD, congestive heart failure Context: recent URI Associated Symptoms: chest pain, cough, parasthesias Treatments Prior to Arrival: none - Related Data Home Medications Medication Instructions Recorded Confirmed Albuterol Sulfate [Albuterol 2 puff INHALATION RT-Q4H PRN 04/25/20 07/15/21 Sulfate Hfa] Albuterol Nebulized [Ventolin 2.5 mg INHALATION RT-Q6H PRN 07/15/21 07/15/21 Nebulized] predniSONE [Deltasone] 20 mg PO DIRECTED 07/15/21 07/15/21 Previous Rx's Medication Instructions Recorded amLODIPine [Norvasc] 5 mg PO DAILY #30 tab 12/26/20 Albuterol Nebulized [Ventolin 2.5 mg INHALATION Q4H PRN #25 each 07/16/21 Nebulized] Albuterol Sulfate [Proair Hfa] 1 - 2 puff INHALATION Q4H PRN #8.5 07/16/21 gm Azithromycin [Zithromax Z-pack (6 0 mg PO DIRECTED #1 packet 07/16/21 tabs)] predniSONE 50 mg PO DAILY #5 tab 07/16/21 Allergies Allergy/AdvReac Type Severity Reaction Status Date / Time amoxicillin Allergy Rash/Hives Verified 07/15/21 23:10 Penicillins Allergy Rash/Hives Verified 07/15/21 23:10 shellfish derived [Shellfish] Allergy Swelling Verified 07/15/21 23:10 Review of Systems ROS Statement: Those systems with pertinent positive or pertinent negative responses have been documented in the HPI. ROS Other: All systems not noted in ROS Statement are negative. Past Medical History Past Medical History: Asthma, Hypertension History of Any Multi-Drug Resistant Organisms: None Reported Past Surgical History: Orthopedic Surgery Additional Past Surgical History / Comment(s): finger surgery Past Psychological History: No Psychological Hx Reported Smoking Status: Current some day smoker Past Alcohol Use History: Occasional Past Drug Use History: None Reported General Exam Limitations: no limitations General appearance: alert, in no apparent distress, anxious Head exam: Present: atraumatic, normocephalic, normal inspection Eye exam: Present: normal appearance, PERRL, EOMI. Absent: scleral icterus, conjunctival injection, periorbital swelling ENT exam: Present: normal exam, mucous membranes dry Neck exam: Present: normal inspection. Absent: tenderness, meningismus, lymphadenopathy Respiratory exam: Present: respiratory distress, wheezes, decreased breath sounds, prolonged expiratory. Absent: rales, rhonchi, stridor Cardiovascular Exam: Present: normal rhythm, tachycardia, normal heart sounds. Absent: systolic murmur, diastolic murmur, rubs, gallop, clicks GI/Abdominal exam: Present: soft, normal bowel sounds. Absent: distended, tenderness, guarding, rebound, rigid Extremities exam: Present: normal inspection, full ROM, normal capillary refill. Absent: tenderness, pedal edema, joint swelling, calf tenderness Back exam: Present: normal inspection Neurological exam: Present: alert, oriented X3, CN II-XII intact Psychiatric exam: Present: normal affect, normal mood Skin exam: Present: warm, dry, intact, normal color. Absent: rash Course Vital Signs 07/15/21 07/15/21 07/15/21 22:24 22:50 23:03 Temperature 98.5 F Pulse Rate 105 H 97 Respiratory 16 28 H Rate Blood Pressure 138/89 O2 Sat by Pulse 94 L Oximetry 07/15/21 07/16/21 07/16/21 23:22 00:26 01:03 Temperature Pulse Rate 98 101 H 101 H Respiratory 20 Rate Blood Pressure 124/64 O2 Sat by Pulse 97 Oximetry 07/16/21 07/16/21 07/16/21 01:14 02:00 03:00 Temperature Pulse Rate 103 H 82 86 Respiratory 18 16 Rate Blood Pressure 143/88 O2 Sat by Pulse 98 95 Oximetry 07/16/21 03:33 Temperature Pulse Rate 92 Respiratory 20 Rate Blood Pressure 136/71 O2 Sat by Pulse 95 Oximetry - Reevaluation(s) Reevaluation #1: Medical record is reviewed Patient symptoms are improving here in the emergency department Patient is informed of results and questions answered Patient is in no acute distress Medical Decision Making - Medical Decision Making 41 male to the emergency department today. Patient presents to the ER today for evaluation regards to severe COPD exacerbation although symptoms are improved here in the ER and can be discharged home - Lab Data Result diagrams: 07/15/21 23:47 07/15/21 23:47 Lab Results 07/15/21 07/15/21 07/15/21 Range/Units 23:47 23:47 23:47 WBC 8.6 (3.8-10.6) k/uL RBC 4.59 (4.30-5.90) m/uL Hgb 15.4 (13.0-17.5) gm/dL Hct 46.1 (39.0-53.0) % MCV 100.4 H (80.0-100.0) fL MCH 33.5 (25.0-35.0) pg MCHC 33.4 (31.0-37.0) g/dL RDW 12.7 (11.5-15.5) % Plt Count 300 (150-450) k/uL MPV 7.6 Neutrophils % 68 % Lymphocytes % 21 % Monocytes % 4 % Eosinophils % 5 % Basophils % 1 % Neutrophils # 5.8 (1.3-7.7) k/uL Lymphocytes # 1.8 (1.0-4.8) k/uL Monocytes # 0.3 (0-1.0) k/uL Eosinophils # 0.5 (0-0.7) k/uL Basophils # 0.1 (0-0.2) k/uL PT 10.1 (9.0-12.0) sec INR 0.9 (<1.2) APTT 21.6 L (22.0-30.0) sec D-Dimer 0.33 (<0.60) mg/L FEU Sodium 135 L (137-145) mmol/L Potassium 4.0 (3.5-5.1) mmol/L Chloride 101 (98-107) mmol/L Carbon Dioxide 23 (22-30) mmol/L Anion Gap 11 mmol/L BUN 9 (9-20) mg/dL Creatinine 0.76 (0.66-1.25) mg/dL Est GFR (CKD-EPI)AfAm >90 (>60 ml/min/1.73 sqM) Est GFR (CKD-EPI)NonAf >90 (>60 ml/min/1.73 sqM) Glucose 163 H (74-99) mg/dL Calcium 9.7 (8.4-10.2) mg/dL Phosphorus 5.9 H (2.5-4.5) mg/dL Magnesium 1.7 (1.6-2.3) mg/dL Total Bilirubin 1.6 H (0.2-1.3) mg/dL AST 45 (17-59) U/L ALT 46 (4-49) U/L Alkaline Phosphatase 43 (38-126) U/L Creatine Kinase 424 H (55-170) U/L Troponin I (0.000-0.034) ng/mL NT-Pro-B Natriuret Pep pg/mL Total Protein 8.2 (6.3-8.2) g/dL Albumin 4.8 (3.5-5.0) g/dL TSH 5.580 H (0.465-4.680) mIU/L 07/15/21 07/15/21 Range/Units 23:47 23:47 WBC (3.8-10.6) k/uL RBC (4.30-5.90) m/uL Hgb (13.0-17.5) gm/dL Hct (39.0-53.0) % MCV (80.0-100.0) fL MCH (25.0-35.0) pg MCHC (31.0-37.0) g/dL RDW (11.5-15.5) % Plt Count (150-450) k/uL MPV Neutrophils % % Lymphocytes % % Monocytes % % Eosinophils % % Basophils % % Neutrophils # (1.3-7.7) k/uL Lymphocytes # (1.0-4.8) k/uL Monocytes # (0-1.0) k/uL Eosinophils # (0-0.7) k/uL Basophils # (0-0.2) k/uL PT (9.0-12.0) sec INR (<1.2) APTT (22.0-30.0) sec D-Dimer (<0.60) mg/L FEU Sodium (137-145) mmol/L Potassium (3.5-5.1) mmol/L Chloride (98-107) mmol/L Carbon Dioxide (22-30) mmol/L Anion Gap mmol/L BUN (9-20) mg/dL Creatinine (0.66-1.25) mg/dL Est GFR (CKD-EPI)AfAm (>60 ml/min/1.73 sqM) Est GFR (CKD-EPI)NonAf (>60 ml/min/1.73 sqM) Glucose (74-99) mg/dL Calcium (8.4-10.2) mg/dL Phosphorus (2.5-4.5) mg/dL Magnesium (1.6-2.3) mg/dL Total Bilirubin (0.2-1.3) mg/dL AST (17-59) U/L ALT (4-49) U/L Alkaline Phosphatase (38-126) U/L Creatine Kinase (55-170) U/L Troponin I <0.012 (0.000-0.034) ng/mL NT-Pro-B Natriuret Pep 135 pg/mL Total Protein (6.3-8.2) g/dL Albumin (3.5-5.0) g/dL TSH (0.465-4.680) mIU/L - EKG Data -: EKG Interpreted by Me (EKG shows sinus tachycardia 101 [place] 136 QRS 82 QTC 4:30) - Radiology Data Radiology results: report reviewed (Chest x-rays negative for acute disease), image reviewed Disposition Clinical Impression: Asthma with acute exacerbation, Acute exacerbation of chronic obstructive pulmonary disease Disposition: HOME SELF-CARE Condition: Good Instructions (If sedation given, give patient instructions): Asthma (ED), Acute Bronchitis (ED) Prescriptions: predniSONE 50 mg PO DAILY #5 tab Albuterol Sulfate [Proair Hfa] 1 - 2 puff INHALATION Q4H PRN #8.5 gm PRN Reason: Shortness Of Breath Albuterol Nebulized [Ventolin Nebulized] 2.5 mg INHALATION Q4H PRN #25 each PRN Reason: Shortness Of Breath Azithromycin [Zithromax Z-pack (6 tabs)] 0 mg PO DIRECTED #1 packet Is patient prescribed a controlled substance at d/c from ED?: No Referrals: Jose Sanches MD [Primary Care Provider] - 1-2 days
[2021-07-15] MEDS ORDERED: dexAMETHasone 2 MG TAB PO STA (22:42)
[2021-07-15] MEDS ORDERED: IPRATROPIUM 0.5 MG/2.5 ML NEBU INHALATION STA (22:42)
[2021-07-15] MEDS ORDERED: ALBUTEROL NEBULIZED 2.5 MG/3 ML INHALATION STA (22:42)
[2021-07-15] MEDS ORDERED: MORPHINE SULFATE 2 MG/ML SYRINGE IVP STA (23:26)
[2021-07-15] MEDS ORDERED: SODIUM CHLORIDE 0.9% 1,000 ML IV STA ×2 (23:26→23:42)
[2021-07-15] MEDS ORDERED: LORazepam 2 MG/ML INJ IV STA (23:27)
[2021-07-15] MEDS ORDERED: TERBUTALINE 1 MG/ML VIAL SQ STA (23:42)
[2021-07-15 23:57] LABS: Basophils # (A) 0.1 k/uL (0-0.2); Basophils % (A) 1 %; Eosinophils # (A) 0.5 k/uL (0-0.7); Eosinophils % (A) 5 %; HCT 46.1 % (39.0-53.0); HGB 15.4 gm/dL (13.0-17.5); Lymphocytes # (A) 1.8 k/uL (1.0-4.8); Lymphocytes % (A) 21 %; MCH 33.5 pg (25.0-35.0); MCHC 33.4 g/dL (31.0-37.0); MCV 100.4 fL (80.0-100.0); Mean Platelet Volume 7.6; Monocytes # (A) 0.3 k/uL (0-1.0); Monocytes % (A) 4 %; Neutrophils # (A) 5.8 k/uL (1.3-7.7); Neutrophils % (A) 68 %; Platelet Count 300 k/uL (150-450); RBC 4.59 m/uL (4.30-5.90); RDW 12.7 % (11.5-15.5); WBC 8.6 k/uL (3.8-10.6)
[2021-07-16] MEDS: MAGNESIUM SULFATE-D5W PMX 1 GM in DEXTROSE/WATER 1 100ML.BAG IVPB SCH ×2 (00:05→01:01)
[2021-07-16 00:16] LABS: ALT 46 U/L (4-49); AST 45 U/L (17-59); African American GFR (CKD) >90 (>60 ml/min/1.73 sqM); Albumin 4.8 g/dL (3.5-5.0); Alkaline Phosphatase 43 U/L (38-126); Anion Gap 11 mmol/L; Blood Urea Nitrogen 9 mg/dL (9-20); Calcium 9.7 mg/dL (8.4-10.2); Carbon Dioxide 23 mmol/L (22-30); Chloride 101 mmol/L (98-107); Creatine Kinase 424 U/L (55-170); Glucose 163 mg/dL (74-99); Magnesium 1.7 mg/dL (1.6-2.3); Non-African American GFR(CKD) >90 (>60 ml/min/1.73 sqM); Phosphorus 5.9 mg/dL (2.5-4.5); Sodium 135 mmol/L (137-145); Total Bilirubin 1.6 mg/dL (0.2-1.3); Total Protein 8.2 g/dL (6.3-8.2)
--- NOTE | 2021-07-16 00:20 | XR ---
EXAMINATION TYPE: XR chest 1V portable DATE OF EXAM: 07/16/2021 COMPARISON: NONE HISTORY: Pain TECHNIQUE: Single view FINDINGS: Heart and mediastinum are normal. Lungs are clear. Diaphragm is normal. Bony thorax appears normal. There are chest leads. IMPRESSION: Normal chest. No change.
[2021-07-16 00:30] LABS: INR 0.9 (<1.2)
[2021-07-16 00:31] LABS: Partial Thromboplastin Time 21.6 sec (22.0-30.0); Prothrombin Time 10.1 sec (9.0-12.0)
[2021-07-16] MEDS ORDERED: IPRATROPIUM-ALBUTEROL 3 ML NEB INHALATION STA (00:53)
[2021-07-16] MEDS ORDERED: methylPREDNISolone SOD SUCCI 125 MG/2 ML VIAL IV STA (00:53)
[2021-07-16 03:34] VITALS: BP 136/71; PULSE 92; RESP 20
== END 2021-07-16 03:34 | disposition home or self-care (01) ==
LOC: EC 21:49
DX: J44.1 Chronic obstructive pulmonary disease with (acute) exacerbation (principal); J45.901 Unspecified asthma with (acute) exacerbation; I11.0 Hypertensive heart disease with heart failure; I50.9 Heart failure, unspecified; F17.200 Nicotine dependence, unspecified, uncomplicated; Z79.51 Long term (current) use of inhaled steroids; Z79.52 Long term (current) use of systemic steroids; Z79.899 Other long term (current) drug therapy; Z88.0 Allergy status to penicillin
CPT/HCPCS: 96365; 96375 ×3; 96361; 99285; 36415; 94640 ×2; 93005; 85379; 83880; 80053; 82550; 83735; 84100; 84443; 84484; 85025; 85610; 85730; 71045; J2060; J3105; J2930; J2270; J3475; J8540

== ENCOUNTER 2022-05-08 09:46 | Emergency (ER) | payer OTHER ==
[2022-05-08 10:17] VITALS: PULSE 63; RESP 20; TEMP 98.2
--- NOTE | 2022-05-08 10:26 | ED ---
General Adult HPI - General Chief complaint: Recheck/Abnormal Lab/Rx Stated complaint: needs htn meds Time Seen by Provider: 05/08/22 10:20 Source: patient, RN notes reviewed, old records reviewed Mode of arrival: ambulatory Limitations: no limitations - History of Present Illness Initial comments: Patient presents to the emergency room with request to refill his blood pressure medication and albuterol inhaler. He states that he was seeing Dr. Sanches however needs a new primary care doctor. He has no complaints. Severity scale (1-10): 0 Associated Symptoms: denies other symptoms - Related Data Home Medications Medication Instructions Recorded Confirmed Albuterol Sulfate [Albuterol 2 puff INHALATION RT-Q4H PRN 04/25/20 07/15/21 Sulfate Hfa] Albuterol Nebulized [Ventolin 2.5 mg INHALATION RT-Q6H PRN 07/15/21 07/15/21 Nebulized] predniSONE [Deltasone] 20 mg PO DIRECTED 07/15/21 07/15/21 Previous Rx's Medication Instructions Recorded Albuterol Nebulized [Ventolin 2.5 mg INHALATION Q4H PRN #25 each 07/16/21 Nebulized] Azithromycin [Zithromax Z-pack (6 0 mg PO DIRECTED #1 packet 07/16/21 tabs)] predniSONE 50 mg PO DAILY #5 tab 07/16/21 Albuterol Sulfate [Proair Hfa] 1 - 2 puff INHALATION Q4H PRN #8.5 05/08/22 gm Ibuprofen [Motrin] 600 mg PO Q8HR PRN #30 tab 05/08/22 amLODIPine [Norvasc] 5 mg PO DAILY #30 tab 05/08/22 Allergies Allergy/AdvReac Type Severity Reaction Status Date / Time amoxicillin Allergy Rash/Hives Verified 05/08/22 10:17 Penicillins Allergy Rash/Hives Verified 05/08/22 10:17 shellfish derived [Shellfish] Allergy Swelling Verified 05/08/22 10:17 Review of Systems ROS Statement: Those systems with pertinent positive or pertinent negative responses have been documented in the HPI. ROS Other: All systems not noted in ROS Statement are negative. Past Medical History Past Medical History: Asthma, Hypertension History of Any Multi-Drug Resistant Organisms: None Reported Past Surgical History: Orthopedic Surgery Additional Past Surgical History / Comment(s): finger surgery Past Psychological History: No Psychological Hx Reported Smoking Status: Current some day smoker Past Alcohol Use History: Occasional Past Drug Use History: None Reported General Exam Limitations: no limitations General appearance: alert, in no apparent distress Head exam: Present: atraumatic Respiratory exam: Present: normal lung sounds bilaterally. Absent: respiratory distress, accessory muscle use Cardiovascular Exam: Present: regular rate Extremities exam: Present: normal capillary refill Neurological exam: Present: alert, oriented X3, normal gait Psychiatric exam: Present: normal affect, normal mood Skin exam: Present: warm, dry, normal color. Absent: cyanosis, diaphoretic Course Vital Signs 05/08/22 05/08/22 10:15 10:30 Temperature 98.2 F Pulse Rate 63 Respiratory 20 Rate Blood Pressure 139/97 125/90 O2 Sat by Pulse 99 Oximetry Medical Decision Making - Medical Decision Making Patient presents with a request for refill on his Norvasc and albuterol prescriptions. He is also requesting referral to a new primary care doctor. Patient has no complaints. Lungs clear auscultation. No chest pain or difficulty in breathing. Patient was given a dose of Norvasc in the emergency room. Patient was given his prescriptions and referral to doctor's for primary care doctor. Case discussed with Dr. Michelle. Disposition Clinical Impression: Encounter for medication refill Disposition: HOME SELF-CARE Condition: Good Instructions (If sedation given, give patient instructions): Medicine Refill (ED) Additional Instructions: Take medication as prescribed and follow up with a primary care doctor within the next 30 days for continuation of care. Prescriptions: Ibuprofen [Motrin] 600 mg PO Q8HR PRN #30 tab PRN Reason: Pain amLODIPine [Norvasc] 5 mg PO DAILY #30 tab Albuterol Sulfate [Proair Hfa] 1 - 2 puff INHALATION Q4H PRN #8.5 gm PRN Reason: Shortness Of Breath Is patient prescribed a controlled substance at d/c from ED?: No Referrals: Jose Sanches MD [Primary Care Provider] - 1-2 days Bartolome Baker MD [STAFF PHYSICIAN] - 1-2 days Cristela Alvarado MD [STAFF PHYSICIAN] - 1-2 days Time of Disposition: 10:27
[2022-05-08] MEDS ORDERED: amLODIPine 5 MG TAB PO STA (10:27)
[2022-05-08 10:41] VITALS: BP 125/90
== END 2022-05-08 10:41 | disposition home or self-care (01) ==
LOC: EC 09:46
DX: Z76.0 Encounter for issue of repeat prescription (principal); I10 Essential (primary) hypertension; J45.909 Unspecified asthma, uncomplicated; F17.200 Nicotine dependence, unspecified, uncomplicated; Z79.51 Long term (current) use of inhaled steroids; Z79.52 Long term (current) use of systemic steroids; Z88.0 Allergy status to penicillin; Z91.013 Allergy to seafood
CPT/HCPCS: 99281

== ENCOUNTER 2022-08-11 08:37 | Emergency (ER) | payer OTHER ==
[2022-08-11 08:41] VITALS: BP 151/90; PULSE 112; RESP 20; TEMP 98.3
--- NOTE | 2022-08-11 08:52 | ED ---
Recheck HPI - General Chief Complaint: Recheck/Abnormal Lab/Rx Stated Complaint: rx refill Time Seen by Provider: 08/11/22 08:47 Source: patient, family, RN notes reviewed Mode of arrival: ambulatory Limitations: no limitations - History of Present Illness Initial Comments: This is a 42-year-old male who presents to the emergency department for medication refills. States that he has not been able to get in to see Dr. Sanches and is out of his medication. He uses an albuterol inhaler, prednisone, and Pepcid daily. He otherwise has no concerns or complaints. Denies any fevers, chills, sore throat, cough, dyspnea, chest pain, palpitations, abdominal pain, nausea, vomiting, diarrhea, back pain, or headaches. MD Complaint: medication refill request - Related Data Home Medications Medication Instructions Recorded Confirmed Albuterol Sulfate [Albuterol 2 puff INHALATION RT-Q4H PRN 04/25/20 07/15/21 Sulfate Hfa] Albuterol Nebulized [Ventolin 2.5 mg INHALATION RT-Q6H PRN 07/15/21 07/15/21 Nebulized] predniSONE [Deltasone] 20 mg PO DIRECTED 07/15/21 07/15/21 Previous Rx's Medication Instructions Recorded Albuterol Nebulized [Ventolin 2.5 mg INHALATION Q4H PRN #25 each 07/16/21 Nebulized] Azithromycin [Zithromax Z-pack (6 0 mg PO DIRECTED #1 packet 07/16/21 tabs)] predniSONE 50 mg PO DAILY #5 tab 07/16/21 Albuterol Sulfate [Proair Hfa] 1 - 2 puff INHALATION Q4H PRN #8.5 05/08/22 gm Ibuprofen [Motrin] 600 mg PO Q8HR PRN #30 tab 05/08/22 amLODIPine [Norvasc] 5 mg PO DAILY #30 tab 05/08/22 Albuterol Sulfate [Albuterol 2 puff PO Q4-6H PRN #8.5 gm 08/11/22 Sulfate Hfa] Famotidine [Zantac-360 10 mg PO Q24H #20 tablet 08/11/22 (Famotidine)] predniSONE 5 mg PO DAILY #20 tab 08/11/22 Allergies Allergy/AdvReac Type Severity Reaction Status Date / Time amoxicillin Allergy Rash/Hives Verified 08/11/22 08:41 Penicillins Allergy Rash/Hives Verified 08/11/22 08:41 shellfish derived [Shellfish] Allergy Swelling Verified 08/11/22 08:41 Review of Systems ROS Statement: Those systems with pertinent positive or pertinent negative responses have been documented in the HPI. ROS Other: All systems not noted in ROS Statement are negative. Past Medical History Past Medical History: Asthma, Hypertension History of Any Multi-Drug Resistant Organisms: None Reported Past Surgical History: Orthopedic Surgery Additional Past Surgical History / Comment(s): finger surgery Past Psychological History: No Psychological Hx Reported Smoking Status: Current some day smoker Past Alcohol Use History: Occasional Past Drug Use History: None Reported General Exam Limitations: no limitations General appearance: alert, in no apparent distress Head exam: Present: atraumatic, normocephalic, normal inspection Respiratory exam: Present: normal lung sounds bilaterally. Absent: respiratory distress, wheezes, rales, rhonchi, stridor Cardiovascular Exam: Present: regular rate, normal rhythm, normal heart sounds. Absent: systolic murmur, diastolic murmur, rubs, gallop, clicks Neurological exam: Present: alert, oriented X3, CN II-XII intact Psychiatric exam: Present: normal affect, normal mood Skin exam: Present: warm, dry, intact, normal color. Absent: rash Course Vital Signs 08/11/22 08:38 Temperature 98.3 F Pulse Rate 112 H Respiratory 20 Rate Blood Pressure 151/90 O2 Sat by Pulse 99 Oximetry Medical Decision Making - Medical Decision Making This is a 42-year-old male who presents to the emergency department for medication refills. Refill on his albuterol inhaler, 5 mg of prednisone, and 10 mg of famotidine provided. Advised that he cannot continue to come to the emergency department for medication refills and he needs to follow-up with his primary care provider for ongoing management, reevaluation of symptoms, and long-term prescriptions. Return precautions reviewed in depth, the patient is instructed to return to the emergency department with any new, worsening, or concerning symptoms. Patient verbalized understanding. This case was discussed in detail with the attending ED physician. Presentation, findings, and treatment plan discussed in detail as well. Disposition Clinical Impression: Encounter for medication refill Disposition: HOME SELF-CARE Instructions (If sedation given, give patient instructions): Asthma (ED), GERD (Gastroesophageal Reflux Disease) (ED) Additional Instructions: Return to the emergency department with any new, worsening, or concerning symptoms. Please follow up with your primary care provider as soon as possible for medication management and nursing home refills to avoid recurrent trips to the emergency department. Prescriptions: Albuterol Sulfate [Albuterol Sulfate Hfa] 2 puff PO Q4-6H PRN #8.5 gm PRN Reason: Shortness Of Breath predniSONE 5 mg PO DAILY #20 tab Famotidine [Zantac-360 (Famotidine)] 10 mg PO Q24H #20 tablet Is patient prescribed a controlled substance at d/c from ED?: No Referrals: None,Stated [Primary Care Provider] - 1-2 days
== END 2022-08-11 08:59 | disposition home or self-care (01) ==
LOC: EC 08:37
DX: Z76.0 Encounter for issue of repeat prescription (principal); I10 Essential (primary) hypertension; J45.909 Unspecified asthma, uncomplicated; F17.200 Nicotine dependence, unspecified, uncomplicated; Z79.51 Long term (current) use of inhaled steroids; Z79.899 Other long term (current) drug therapy; Z79.83 Long term (current) use of bisphosphonates; Z88.0 Allergy status to penicillin; Z91.013 Allergy to seafood
CPT/HCPCS: 99281

== ENCOUNTER 2022-09-01 07:03 | Emergency (ER) | payer OTHER ==
[2022-09-01 07:13] VITALS: BP 145/89; PULSE 94; RESP 20; TEMP 98
--- NOTE | 2022-09-01 07:19 | ED ---
General Adult HPI - General Chief complaint: Recheck/Abnormal Lab/Rx Stated complaint: Med refill Time Seen by Provider: 09/01/22 07:14 Source: patient, RN notes reviewed Mode of arrival: ambulatory Limitations: no limitations - History of Present Illness Initial comments: 42-year-old male presents emergency from for evaluation of his asthma. Patient states that he has asthma and has ran out of his inhaler states that he needs his inhaler more frequently with weather changes. Patient denies any chest pain no fevers or chills no cough currently. Patient states that he does not have PCP patient offers no other associated complaints. - Related Data Home Medications Medication Instructions Recorded Confirmed Albuterol Sulfate [Albuterol 2 puff INHALATION RT-Q4H PRN 04/25/20 07/15/21 Sulfate Hfa] Albuterol Nebulized [Ventolin 2.5 mg INHALATION RT-Q6H PRN 07/15/21 07/15/21 Nebulized] predniSONE [Deltasone] 20 mg PO DIRECTED 07/15/21 07/15/21 Previous Rx's Medication Instructions Recorded Albuterol Nebulized [Ventolin 2.5 mg INHALATION Q4H PRN #25 each 07/16/21 Nebulized] Azithromycin [Zithromax Z-pack (6 0 mg PO DIRECTED #1 packet 07/16/21 tabs)] predniSONE 50 mg PO DAILY #5 tab 07/16/21 Albuterol Sulfate [Proair Hfa] 1 - 2 puff INHALATION Q4H PRN #8.5 05/08/22 gm Ibuprofen [Motrin] 600 mg PO Q8HR PRN #30 tab 05/08/22 amLODIPine [Norvasc] 5 mg PO DAILY #30 tab 05/08/22 Albuterol Sulfate [Albuterol 2 puff PO Q4-6H PRN #8.5 gm 08/11/22 Sulfate Hfa] Famotidine [Zantac-360 10 mg PO Q24H #20 tablet 08/11/22 (Famotidine)] predniSONE 5 mg PO DAILY #20 tab 08/11/22 Albuterol Sulfate [Proair Hfa] 1 - 2 puff INHALATION Q4HR PRN 09/01/22 #8.5 gm Allergies Allergy/AdvReac Type Severity Reaction Status Date / Time amoxicillin Allergy Rash/Hives Verified 09/01/22 07:13 Penicillins Allergy Rash/Hives Verified 09/01/22 07:13 shellfish derived [Shellfish] Allergy Swelling Verified 09/01/22 07:13 Review of Systems ROS Statement: Those systems with pertinent positive or pertinent negative responses have been documented in the HPI. ROS Other: All systems not noted in ROS Statement are negative. Past Medical History Past Medical History: Asthma, Hypertension History of Any Multi-Drug Resistant Organisms: None Reported Past Surgical History: Orthopedic Surgery Additional Past Surgical History / Comment(s): finger surgery Past Psychological History: No Psychological Hx Reported Smoking Status: Current some day smoker Past Alcohol Use History: Occasional Past Drug Use History: None Reported General Exam Limitations: no limitations General appearance: alert, in no apparent distress Head exam: Present: atraumatic, normocephalic, normal inspection Eye exam: Present: normal appearance, PERRL, EOMI. Absent: scleral icterus, conjunctival injection, periorbital swelling ENT exam: Present: normal exam, normal oropharynx, mucous membranes moist Neck exam: Present: normal inspection, full ROM. Absent: tenderness, mening ismus, lymphadenopathy Respiratory exam: Present: normal lung sounds bilaterally. Absent: respiratory distress, wheezes, rales, rhonchi, stridor Cardiovascular Exam: Present: regular rate, normal rhythm, normal heart sounds. Absent: systolic murmur, diastolic murmur, rubs, gallop, clicks Course Vital Signs 09/01/22 07:11 Temperature 98 F Pulse Rate 94 Respiratory 20 Rate Blood Pressure 145/89 O2 Sat by Pulse 99 Oximetry Medical Decision Making - Medical Decision Making Patient provided an inhaler prescription. Patient advised needs follow-up PCP or clinical support associate. Phone numbers were given. Disposition Clinical Impression: Asthma, Encounter for medication refill Disposition: HOME SELF-CARE Condition: Stable Instructions (If sedation given, give patient instructions): Asthma (ED) Additional Instructions: Please return to the Emergency Department if symptoms worsen or any other concerns. Prescriptions: Albuterol Sulfate [Proair Hfa] 1 - 2 puff INHALATION Q4HR PRN #8.5 gm PRN Reason: difficulty in breathing Is patient prescribed a controlled substance at d/c from ED?: No Referrals: Craig Campbell MD [STAFF PHYSICIAN] - 1-2 days Rich Espinal MD [REFERRING] - 1-2 days Time of Disposition: 07:19
== END 2022-09-01 07:43 | disposition home or self-care (01) ==
LOC: EC 07:03
DX: J45.909 Unspecified asthma, uncomplicated (principal); Z76.0 Encounter for issue of repeat prescription; I10 Essential (primary) hypertension; F17.200 Nicotine dependence, unspecified, uncomplicated; Z88.0 Allergy status to penicillin; Z91.013 Allergy to seafood; Z79.51 Long term (current) use of inhaled steroids; Z79.899 Other long term (current) drug therapy
CPT/HCPCS: 99281

== ENCOUNTER 2022-09-27 09:06 | Emergency (ER) | payer OTHER ==
[2022-09-27 09:30] VITALS: BP 139/93; RESP 18; TEMP 97.9
[2022-09-27] MEDS ORDERED: methylPREDNISolone SOD SUCCI 125 MG/2 ML VIAL IM ONE (11:19)
[2022-09-27] MEDS ORDERED: IPRATROPIUM-ALBUTEROL 3 ML NEB INHALATION STA (11:19)
--- NOTE | 2022-09-27 11:43 | XR ---
EXAMINATION TYPE: XR chest 2V DATE OF EXAM: 09/27/2022 COMPARISON: 07/16/2021 HISTORY: Chest pain TECHNIQUE: Frontal and lateral views of the chest are obtained. FINDINGS: There is no focal air space opacity. No evidence for pneumothorax. No pleural effusion. The cardiac silhouette size is within normal limits. The osseous structures are grossly intact. IMPRESSION: 1. No acute cardiopulmonary process.
--- NOTE | 2022-09-27 12:25 | ED ---
Recheck HPI - General Chief Complaint: Recheck/Abnormal Lab/Rx Stated Complaint: Asthma Time Seen by Provider: 09/27/22 11:02 Source: patient Mode of arrival: ambulatory Limitations: no limitations - History of Present Illness Initial Comments: Patient is a 42-year-old male presenting with for refill of his albuterol inhaler. Patient currently sees Dr. Sanches states that he has not been able to get in to see him due to insurance difficulties. Patient states that while walking here his asthma began to flareup. He admits to some wheezing, however states that he otherwise feels well. No chest pain or difficulty breathing. No palpitations or weakness. No fever or chills. No cough, congestion, sore throat. No headache, vision or hearing changes, neck pain or stiffness. Patient is also requesting a refill for his amlodipine. - Related Data Home Medications Medication Instructions Recorded Confirmed Albuterol Sulfate [Albuterol 2 puff INHALATION RT-Q4H PRN 04/25/20 07/15/21 Sulfate Hfa] Albuterol Nebulized [Ventolin 2.5 mg INHALATION RT-Q6H PRN 07/15/21 07/15/21 Nebulized] predniSONE [Deltasone] 20 mg PO DIRECTED 07/15/21 07/15/21 Previous Rx's Medication Instructions Recorded Albuterol Nebulized [Ventolin 2.5 mg INHALATION Q4H PRN #25 each 07/16/21 Nebulized] Azithromycin [Zithromax Z-pack (6 0 mg PO DIRECTED #1 packet 07/16/21 tabs)] predniSONE 50 mg PO DAILY #5 tab 07/16/21 Albuterol Sulfate [Proair Hfa] 1 - 2 puff INHALATION Q4H PRN #8.5 05/08/22 gm Ibuprofen [Motrin] 600 mg PO Q8HR PRN #30 tab 05/08/22 amLODIPine [Norvasc] 5 mg PO DAILY #30 tab 05/08/22 Albuterol Sulfate [Albuterol 2 puff PO Q4-6H PRN #8.5 gm 08/11/22 Sulfate Hfa] Famotidine [Zantac-360 10 mg PO Q24H #20 tablet 08/11/22 (Famotidine)] predniSONE 5 mg PO DAILY #20 tab 08/11/22 Albuterol Sulfate [Proair Hfa] 1 - 2 puff INHALATION Q4HR PRN 09/01/22 #8.5 gm Albuterol Sulfate [Albuterol 2 puff PO Q6H PRN #8.5 gm 09/27/22 Sulfate Hfa] Albuterol Sulfate [Albuterol 2 puff PO Q6H PRN #8.5 gm 09/27/22 Sulfate Hfa] amLODIPine [Norvasc] 5 mg PO DAILY #15 tab 09/27/22 amLODIPine [Norvasc] 5 mg PO DAILY #20 tab 09/27/22 Allergies Allergy/AdvReac Type Severity Reaction Status Date / Time amoxicillin Allergy Rash/Hives Verified 09/01/22 07:13 Penicillins Allergy Rash/Hives Verified 09/01/22 07:13 shellfish derived [Shellfish] Allergy Swelling Verified 09/01/22 07:13 Review of Systems ROS Statement: Those systems with pertinent positive or pertinent negative responses have been documented in the HPI. ROS Other: All systems not noted in ROS Statement are negative. Past Medical History Past Medical History: Asthma, Hypertension History of Any Multi-Drug Resistant Organisms: None Reported Past Surgical History: Orthopedic Surgery Additional Past Surgical History / Comment(s): finger surgery Past Psychological History: No Psychological Hx Reported Smoking Status: Current some day smoker Past Alcohol Use History: Occasional Past Drug Use History: None Reported General Exam Limitations: no limitations General appearance: alert, in no apparent distress Head exam: Present: atraumatic, normocephalic, normal inspection Eye exam: Present: normal appearance Neck exam: Present: normal inspection Respiratory exam: Present: wheezes (Expiratory). Absent: respiratory distress, accessory muscle use Cardiovascular Exam: Present: regular rate, normal rhythm, normal heart sounds. Absent: systolic murmur, diastolic murmur, rubs, gallop, clicks Neurological exam: Present: alert, oriented X3, CN II-XII intact Psychiatric exam: Present: normal affect, normal mood Skin exam: Present: warm, dry, intact, normal color. Absent: rash Course Vital Signs 09/27/22 09/27/22 09/27/22 09:26 12:34 12:44 Temperature 97.9 F Pulse Rate 110 H 80 76 Respiratory 18 Rate Blood Pressure 139/93 O2 Sat by Pulse 95 Oximetry 09/27/22 12:57 Temperature 97.9 F Pulse Rate 76 Respiratory 18 Rate Blood Pressure 139/93 O2 Sat by Pulse 95 Oximetry Medical Decision Making - Medical Decision Making Patient is a 42-year-old male presenting for refill of albuterol inhaler and amlodipine. Currently unable to get and see his PCP. States that he had a mild flareup of his asthma on the way here. On examination there are some diffuse expiratory wheezes. Patient is showing no signs of respiratory distress, states that he otherwise feels well. He is given Solu-Medrol and a breathing treatment here in the ER. Reports improvement in his symptoms. Refill is sent for albuterol inhaler and amlodipine. Stressed the importance of follow-up with a PCP. Report back to ER with any new or worsening symptoms. Discussed return parameters and answered all questions. Patient conveyed verbal understanding and agreed to the plan. I discussed this case in detail with my attending Dr. Leach Disposition Clinical Impression: Asthma Disposition: HOME SELF-CARE Condition: Good Instructions (If sedation given, give patient instructions): Asthma (ED) Additional Instructions: Follow-up with PCP. Report back to ER with any new or worsening symptoms. Prescriptions: Albuterol Sulfate [Albuterol Sulfate Hfa] 2 puff PO Q6H PRN #8.5 gm PRN Reason: Shortness Of Breath Albuterol Sulfate [Albuterol Sulfate Hfa] 2 puff PO Q6H PRN #8.5 gm PRN Reason: Shortness Of Breath amLODIPine [Norvasc] 5 mg PO DAILY #15 tab amLODIPine [Norvasc] 5 mg PO DAILY #20 tab Is patient prescribed a controlled substance at d/c from ED?: No Referrals: None,Stated [Primary Care Provider] - 1-2 days
[2022-09-27 12:44] VITALS: PULSE 76
== END 2022-09-27 12:57 | disposition home or self-care (01) ==
LOC: EC 09:06
DX: J45.909 Unspecified asthma, uncomplicated (principal); I10 Essential (primary) hypertension; F17.200 Nicotine dependence, unspecified, uncomplicated; Z88.0 Allergy status to penicillin; Z91.013 Allergy to seafood; Z79.899 Other long term (current) drug therapy
CPT/HCPCS: 94640; 71046; 99284; 96372; J2930

== ENCOUNTER 2022-10-01 23:49 | Emergency (ER) | payer OTHER ==
[2022-10-02] MEDS ORDERED: HYDROmorphone 1 MG/ML 1 ML SYRINGE IVP STA (00:16)
[2022-10-02] MEDS ORDERED: SODIUM CHLORIDE 0.9% 1,000 ML IV STA (00:16)
[2022-10-02] MEDS ORDERED: ONDANSETRON 4 MG/2 ML VIAL IVP STA (00:16)
[2022-10-02] MEDS ORDERED: DIPH,PERTUS(ACELL)TETVAC-LF 0.5 ML VIAL IM ONE (00:18)
[2022-10-02] MEDS ORDERED: BUPIVACAINE (PF) 0.5% 30 ML VIAL SQ STA (00:18)
--- NOTE | 2022-10-02 00:25 | ED ---
Head Injury HPI - General Chief complaint: Head Injury Stated complaint: Fall down stairs, Loss of consc, Facial Laceration Time Seen by Provider: 10/02/22 00:09 Source: patient, RN notes reviewed Mode of arrival: ambulatory Limitations: no limitations - History of Present Illness Initial comments: This is a pleasant 42-year-old male who arrives after falling down about 15 steps. Patient states he's been having some pain in his neck and states that t his caused him to fall. He describes tripping over steps going down about 15 steps and sustaining racial trauma. Patient states he did lose consciousness. Patient also complaining of neck pain. Pain is exacerbated by movement. Patient is an a cervical collar. Patient arrives to the waiting room. POSITIVE headache, no fever or chills, no changes in vision or hearing, no sore throat or difficulty with speech, POSITIVE neck pain, positive facial pain, no chest pain or shortness of breath, no abdominal pain, no nausea or vomiting, no changes in urination or bowel movements, no numbness or tingling, no extremity pain, no skin rashes or lesions. Past medical, surgical, social, and family history reviewed. Patient has a history of hypertension. No blood thinners. - Related Data Home Medications Medication Instructions Recorded Confirmed Albuterol Sulfate [Albuterol 2 puff INHALATION RT-Q4H PRN 04/25/20 07/15/21 Sulfate Hfa] Albuterol Nebulized [Ventolin 2.5 mg INHALATION RT-Q6H PRN 07/15/21 07/15/21 Nebulized] predniSONE [Deltasone] 20 mg PO DIRECTED 07/15/21 07/15/21 Previous Rx's Medication Instructions Recorded Albuterol Nebulized [Ventolin 2.5 mg INHALATION Q4H PRN #25 each 07/16/21 Nebulized] Azithromycin [Zithromax Z-pack (6 0 mg PO DIRECTED #1 packet 07/16/21 tabs)] predniSONE 50 mg PO DAILY #5 tab 07/16/21 Albuterol Sulfate [Proair Hfa] 1 - 2 puff INHALATION Q4H PRN #8.5 05/08/22 gm Ibuprofen [Motrin] 600 mg PO Q8HR PRN #30 tab 05/08/22 amLODIPine [Norvasc] 5 mg PO DAILY #30 tab 05/08/22 Albuterol Sulfate [Albuterol 2 puff PO Q4-6H PRN #8.5 gm 08/11/22 Sulfate Hfa] Famotidine [Zantac-360 10 mg PO Q24H #20 tablet 08/11/22 (Famotidine)] predniSONE 5 mg PO DAILY #20 tab 08/11/22 Albuterol Sulfate [Proair Hfa] 1 - 2 puff INHALATION Q4HR PRN 09/01/22 #8.5 gm Albuterol Sulfate [Albuterol 2 puff PO Q6H PRN #8.5 gm 09/27/22 Sulfate Hfa] Albuterol Sulfate [Albuterol 2 puff PO Q6H PRN #8.5 gm 09/27/22 Sulfate Hfa] amLODIPine [Norvasc] 5 mg PO DAILY #15 tab 09/27/22 amLODIPine [Norvasc] 5 mg PO DAILY #20 tab 09/27/22 Acetaminophen Tab [Tylenol Tab] 500 mg PO Q6H PRN #24 tablet 10/02/22 Cyclobenzaprine [Flexeril] 10 mg PO TID PRN #20 tab 10/02/22 Doxycycline [Vibramycin] 100 mg PO BID 1 Days #14 each 10/02/22 Ibuprofen [Motrin] 600 mg PO Q8HR PRN #30 tab 10/02/22 Allergies/Adverse reactions: Allergies Allergy/AdvReac Type Severity Reaction Status Date / Time amoxicillin Allergy Rash/Hives Verified 09/01/22 07:13 Penicillins Allergy Rash/Hives Verified 09/01/22 07:13 shellfish derived [Shellfish] Allergy Swelling Verified 09/01/22 07:13 Review of Systems ROS Statement: Those systems with pertinent positive or pertinent negative responses have been documented in the HPI. ROS Other: All systems not noted in ROS Statement are negative. Past Medical History Past Medical History: Asthma, Hypertension History of Any Multi-Drug Resistant Organisms: None Reported Past Surgical History: Orthopedic Surgery Additional Past Surgical History / Comment(s): finger surgery Past Psychological History: No Psychological Hx Reported Smoking Status: Current some day smoker Past Alcohol Use History: Occasional Past Drug Use History: None Reported General Exam - General Exam Comments Initial Comments: Patient has obvious trauma to his left facial area with significant edema and a large laceration to the left supraorbital area. Cranial nerves II through XII are intact, patient is alert and oriented 4. Extraocular movements are intact. No definitive evidence of entrapment syndrome. Limitations: no limitations General appearance: alert, in distress Head exam: Present: atraumatic, normocephalic, normal inspection Eye exam: Present: normal appearance, PERRL, EOMI, periorbital tenderness (Left), other (Subconjunctival hemorrhage, minimal, left lateral canthus area). Absent: scleral icterus, conjunctival injection, periorbital swelling (Left) Pupils: Present: normal accommodation ENT exam: Present: normal exam, normal oropharynx, mucous membranes dry, mucous membranes moist, normal external ear exam Neck exam: Present: normal inspection, tenderness (Midline tenderness, cervical collar in place). Absent: meningismus, lymphadenopathy Respiratory exam: Present: normal lung sounds bilaterally. Absent: respiratory distress, wheezes, rales, rhonchi, stridor, decreased breath sounds, prolonged expiratory Cardiovascular Exam: Present: regular rate, normal rhythm, normal heart sounds. Absent: systolic murmur, diastolic murmur, rubs, gallop, clicks GI/Abdominal exam: Present: soft, normal bowel sounds. Absent: distended, tenderness, guarding, rebound, rigid Extremities exam: Present: normal inspection, full ROM, normal capillary refill. Absent: tenderness, pedal edema, joint swelling, calf tenderness Back exam: Present: normal inspection, full ROM. Absent: tenderness, vertebral tenderness (Note tenderness to the thoracic or lumbar spine) Neurological exam: Present: alert, oriented X3, CN II-XII intact. Absent: motor sensory deficit Expanded Patient oriented to: Present: person, place, time Speech: Present: fluid speech Cranial nerves: EOM's Intact: Normal, Gag Reflex: Normal, Tongue Deviation: Normal, Nystagmus: Normal, Facial Sensation: Normal, Facial Palsy with Forehead Movement: Normal, Facial Palsy without Forehead Movement: Normal Cerebellar function: Finger to Nose: Normal Motor strength exam: RUE: 5, LUE: 5, RLE: 5, LLE: 5 Eye Response: (4) open spontaneously Motor Response: (6) obeys commands Verbal Response: (5) oriented [place] Total: 15 Psychiatric exam: Present: normal affect, normal mood Skin exam: Present: warm, dry, intact, normal color. Absent: rash Course Vital Signs 10/01/22 10/02/22 10/02/22 23:50 01:33 02:59 Temperature 98 F 98.0 F 98.0 F Pulse Rate 88 84 75 Respiratory 20 14 14 Rate Blood Pressure 140/95 124/75 113/63 O2 Sat by Pulse 98 97 97 Oximetry Procedures - Laceration Laceration #1 Consent Obtained: verbal consent Indication: laceration Site: face Size (cm): 7 Description: irregular Depth: involves muscle layer Anesthetic Used: lidocaine 1%, with epi Anesthesia Technique: local infiltration Amount (mls): 5 Pre-repair: wound explored, irrigated extensively, wound margins revised (Undermining) Type of Sutures: nylon (9), vicryl (3) Size of Sutures: 5-0, 6-0 Number of Sutures: 10 Technique: simple, interrupted (7), horizontal mattress (2) Patient Tolerated Procedure: well, no complications Laceration #2 Consent Obtained: verbal consent Site: face Size (cm): 1 Description: linear, clean Depth: simple, single layer Pre-repair: wound explored, irrigated extensively Type of Sutures: other (Tissue adhesive) Patient Tolerated Procedure: well, no complications Medical Decision Making - Medical Decision Making Level II trauma initiated. Trauma profile ordered. Patient will require CT scanning of the brain, cervical spine, facial bones. Laboratory investigations reveal a mildly elevated white count which is likely inflammatory. CMP was essentially unremarkable aside from a total bilirubin of 2.8 which is elevated for unknown reasons as the patient has no abdominal pain or vomiting. Patient previously has had hyperbilirubinemia as well. Patient deferred urinalysis. Serum alcohol was 73 Note that the patient was not clinically drunk. Alert and oriented 4. Cranial nerves II through XII intact. Answering questions appropriately. No slurred speech. Steady gait. Suspected patient takes alcohol chronically. He does admit to daily alcohol intake. Tetanus was updated. We'll treat the patient with doxycycline for prophylaxis due to the depth of the wound. There was no evidence of facial fracture or entrapment. Patient's visual acuity was normal. Suture removal in 5 days. Discussed wound care in detail. Discussed signs and symptoms of infection. Discussed head injury instructions. The case was discussed in detail with ED attending physician. Presentation, findings, treatment plan discussed in detail. Patient was told to return to the ER for any signs or symptoms worsen. Told to return immediately if any other problems arise. All questions answered. Treatment plan discussed. Patient in agreement Every effort has been made to ensure accuracy of this dictation. However, due to the limitations of electronic medical records and dictation devices, errors in charting still occur. Dr. Davila - Lab Data Result diagrams: 10/02/22 00:32 10/02/22 00:32 Lab Results 10/02/22 10/02/22 10/02/22 Range/Units 00:31 00:32 00:32 WBC 13.4 H (3.8-10.6) k/uL RBC 4.41 (4.30-5.90) m/uL Hgb 14.8 (13.0-17.5) gm/dL Hct 42.5 (39.0-53.0) % MCV 96.4 (80.0-100.0) fL MCH 33.7 (25.0-35.0) pg MCHC 34.9 (31.0-37.0) g/dL RDW 12.3 (11.5-15.5) % Plt Count 280 (150-450) k/uL MPV 7.5 Neutrophils % 80 % Lymphocytes % 12 % Monocytes % 4 % Eosinophils % 2 % Basophils % 1 % Neutrophils # 10.7 H (1.3-7.7) k/uL Lymphocytes # 1.7 (1.0-4.8) k/uL Monocytes # 0.5 (0-1.0) k/uL Eosinophils # 0.3 (0-0.7) k/uL Basophils # 0.1 (0-0.2) k/uL PT 10.2 (9.0-12.0) sec INR 1.0 (<1.2) APTT 21.1 L (22.0-30.0) sec Sodium (137-145) mmol/L Potassium (3.5-5.1) mmol/L Chloride (98-107) mmol/L Carbon Dioxide (22-30) mmol/L Anion Gap mmol/L BUN (9-20) mg/dL Creatinine (0.66-1.25) mg/dL Est GFR (CKD-EPI)AfAm (>60 ml/min/1.73 sqM) Est GFR (CKD-EPI)NonAf (>60 ml/min/1.73 sqM) Glucose (74-99) mg/dL Calcium (8.4-10.2) mg/dL Total Bilirubin (0.2-1.3) mg/dL AST (17-59) U/L ALT (4-49) U/L Alkaline Phosphatase (38-126) U/L Troponin I (0.000-0.034) ng/mL Total Protein (6.3-8.2) g/dL Albumin (3.5-5.0) g/dL Serum Alcohol mg/dL Blood Type A Positive Blood Type Recheck A Pos Bld Type Recheck Status No Antibody Screen NEGATIVE Spec Expiration Date 10/05/2022 - 233010/02/22 10/02/22 Range/Units 00:32 00:32 WBC (3.8-10.6) k/uL RBC (4.30-5.90) m/uL Hgb (13.0-17.5) gm/dL Hct (39.0-53.0) % MCV (80.0-100.0) fL MCH (25.0-35.0) pg MCHC (31.0-37.0) g/dL RDW (11.5-15.5) % Plt Count (150-450) k/uL MPV Neutrophils % % Lymphocytes % % Monocytes % % Eosinophils % % Basophils % % Neutrophils # (1.3-7.7) k/uL Lymphocytes # (1.0-4.8) k/uL Monocytes # (0-1.0) k/uL Eosinophils # (0-0.7) k/uL Basophils # (0-0.2) k/uL PT (9.0-12.0) sec INR (<1.2) APTT (22.0-30.0) sec Sodium 137 (137-145) mmol/L Potassium 4.7 (3.5-5.1) mmol/L Chloride 99 (98-107) mmol/L Carbon Dioxide 21 L (22-30) mmol/L Anion Gap 17 mmol/L BUN 18 (9-20) mg/dL Creatinine 1.14 (0.66-1.25) mg/dL Est GFR (CKD-EPI)AfAm >90 (>60 ml/min/1.73 sqM) Est GFR (CKD-EPI)NonAf 79 (>60 ml/min/1.73 sqM) Glucose 80 (74-99) mg/dL Calcium 9.1 (8.4-10.2) mg/dL Total Bilirubin 2.8 H (0.2-1.3) mg/dL AST 59 (17-59) U/L ALT 41 (4-49) U/L Alkaline Phosphatase 45 (38-126) U/L Troponin I 0.017 (0.000-0.034) ng/mL Total Protein 7.8 (6.3-8.2) g/dL Albumin 4.9 (3.5-5.0) g/dL Serum Alcohol 73 mg/dL Blood Type Blood Type Recheck Bld Type Recheck Status Antibody Screen Spec Expiration Date - EKG Data -: EKG Interpreted by Me EKG Comments: EKG done at 12:26 AM reveals sinus rhythm with a rate of 80, no evidence of significant ST elevation or depression. Patient does have evidence of early repolarization. Normal axis. Normal intervals. Compared to the previous study from June 2021 there is no significant change. - Radiology Data Radiology results: report reviewed, image reviewed Plain film x-rays of the chest, pelvis, as well as CT scans of the facial bones, brain, cervical spine independently interpreted by me reveal no evidence of acute bony pathology. Patient does have soft tissue swelling to the left facial area consistent with the patient's injury. I did review radiology interpretation. Disposition Clinical Impression: Closed head injury, Facial laceration, Contusion of face, Cervical strain, acute, Fall (on) (from) other stairs and steps, initial encounter Disposition: HOME SELF-CARE Condition: Good Instructions (If sedation given, give patient instructions): Cervical Strain (ED), Head Injury (ED), Facial Laceration (ED) Additional Instructions: Suture removal in 5 days. Keep the wound clean and covered. Wash the wound daily with soap and water. Color with antibiotic ointment such as Triple Antibiotic ointment or Neosporin. Review the head injury instructions. Follow- up with your regular physician as directed. Return to the ER immediately if any symptoms worsen, new symptoms arise, or any other problems develop. Prescriptions: Cyclobenzaprine [Flexeril] 10 mg PO TID PRN #20 tab PRN Reason: Spasms Ibuprofen [Motrin] 600 mg PO Q8HR PRN #30 tab PRN Reason: Pain Acetaminophen Tab [Tylenol Tab] 500 mg PO Q6H PRN #24 tablet PRN Reason: Pain Doxycycline [Vibramycin] 100 mg PO BID 1 Days #14 each Is patient prescribed a controlled substance at d/c from ED?: No Referrals: None,Stated [Primary Care Provider] - 1-2 days Time of Disposition: 02:28
[2022-10-02] MEDS ORDERED: LIDOCAINE 1%-EPI 1:100,000 20 ML VIAL SQ SCH (00:30)
[2022-10-02 00:44] LABS: Basophils # (A) 0.1 k/uL (0-0.2); Basophils % (A) 1 %; Eosinophils # (A) 0.3 k/uL (0-0.7); Eosinophils % (A) 2 %; HCT 42.5 % (39.0-53.0); HGB 14.8 gm/dL (13.0-17.5); Lymphocytes # (A) 1.7 k/uL (1.0-4.8); Lymphocytes % (A) 12 %; MCH 33.7 pg (25.0-35.0); MCHC 34.9 g/dL (31.0-37.0); MCV 96.4 fL (80.0-100.0); Mean Platelet Volume 7.5; Monocytes # (A) 0.5 k/uL (0-1.0); Monocytes % (A) 4 %; Neutrophils # (A) 10.7 k/uL (1.3-7.7); Neutrophils % (A) 80 %; Platelet Count 280 k/uL (150-450); RBC 4.41 m/uL (4.30-5.90); RDW 12.3 % (11.5-15.5); WBC 13.4 k/uL (3.8-10.6)
[2022-10-02 00:55] LABS: ALT 41 U/L (4-49); AST 59 U/L (17-59); African American GFR (CKD) >90 (>60 ml/min/1.73 sqM); Albumin 4.9 g/dL (3.5-5.0); Alcohol 73 mg/dL; Alkaline Phosphatase 45 U/L (38-126); Anion Gap 17 mmol/L; Blood Urea Nitrogen 18 mg/dL (9-20); Calcium 9.1 mg/dL (8.4-10.2); Carbon Dioxide 21 mmol/L (22-30); Chloride 99 mmol/L (98-107); Glucose 80 mg/dL (74-99); Non-African American GFR(CKD) 79 (>60 ml/min/1.73 sqM); Potassium 4.7 mmol/L (3.5-5.1); Sodium 137 mmol/L (137-145); Total Bilirubin 2.8 mg/dL (0.2-1.3); Total Protein 7.8 g/dL (6.3-8.2)
[2022-10-02 00:59] LABS: Partial Thromboplastin Time 21.1 sec (22.0-30.0); Prothrombin Time 10.2 sec (9.0-12.0)
[2022-10-02] MEDS ORDERED: LIDOCAINE 1%-EPI 1:100,000 20 ML VIAL SQ STA (01:04)
--- NOTE | 2022-10-02 01:24 | XR ---
EXAMINATION TYPE: XR chest 1V portable DATE OF EXAM: 10/02/2022 COMPARISON: 09/27/2022 HISTORY: Trauma. Pain TECHNIQUE: Single view FINDINGS: There is no heart failure nor confluent pneumonic infiltrate. Costophrenic angles are clear . There are chest leads. No pneumothorax. IMPRESSION: No cardiopulmonary disease. No change.
--- NOTE | 2022-10-02 01:26 | CT ---
EXAMINATION TYPE: CT brain pierceine wo con DATE OF EXAM: 10/02/2022 COMPARISON: 08/06/2019 HISTORY: fell down [address] DLP: 1200.9 mGycm Automated exposure control for dose reduction was used. Images of the brain obtained with no contrast. There is a large left-sided facial soft tissue swelling. The ventricles of normal size. There is no m ass effect or midline shift. No sign of intracranial hemorrhage. There is normal aeration of the mast oid sinuses. Calvarium is intact. There is mucosal thickening right maxillary sinus. IMPRESSION: No acute intracranial abnormality. Left-sided facial soft tissue swelling and hematoma.
--- NOTE | 2022-10-02 01:32 | CT ---
EXAMINATION TYPE: CT facial bones wo con DATE OF EXAM: 10/02/2022 COMPARISON: 02/08/2019 HISTORY: fell down stairs CT DLP: 1200.9 mGycm Automated exposure control for dose reduction was used. Images obtained from the bottom of the mandible to the top of the frontal sinuses with no contrast. The mandibular ring appears intact. Temporomandibular joints are intact. Zygomatic arches appear norm al. There is some mucosal thickening in the right maxillary sinus. There is mucous retention cyst. Na john bone appears intact. The orbital margins are intact. No evidence of orbital blowout fracture. No evidence of retro-orbital mass. There is soft tissue swelling anterior to the maxilla. There is extensive soft tissue swelling anteri or to the left zygoma and the left orbit. There is apparent laceration defect in the left frontal sca lp. No foreign body seen. Maxillary spine is intact. IMPRESSION: Extensive soft tissue swelling and hematoma in the left periorbital region and left zygoma and left f rontal scalp. No evidence of blowout fracture. Laceration deformity. No fracture seen.
--- NOTE | 2022-10-02 01:35 | XR ---
EXAMINATION TYPE: XR pelvis AP view DATE OF EXAM: 10/02/2022 COMPARISON: NONE HISTORY: Trauma. Fall. TECHNIQUE: Single view FINDINGS: The pelvic ring is intact. The proximal femurs and hip joints are intact. Sacroiliac joints are intact. IMPRESSION: No acute abnormality in the pelvis. No fracture.
[2022-10-02 01:38] VITALS: RESP 14; TEMP 98
[2022-10-02] MEDS ORDERED: DOXYCYCLINE 100 MG CAP PO STA (02:01)
[2022-10-02] MEDS ORDERED: LIDOCAINE/EPINEPHR/TETRACAINE 5 ML BOTTLE TOPICAL ONE (02:09)
[2022-10-02] MEDS ORDERED: TOPICAL SKIN ADHESIVE 1 EACH AMP TOPICAL ONE (02:10)
[2022-10-02] MEDS ORDERED: ACET/COD 300 MG/30 MG STARTER PACK 6 TAB BTL PO STA (02:27)
[2022-10-02] MEDS ORDERED: BACITRACIN ZINC 500 UNIT/GM OINT 28.4 GM TUBE TOPICAL STA (02:29)
[2022-10-02 03:00] VITALS: BP 113/63; PULSE 75
== END 2022-10-02 03:02 | disposition home or self-care (01) ==
LOC: EC 23:49
DX: S01.81XA Laceration without foreign body of other part of head, initial encounter (principal); S16.1XXA Strain of muscle, fascia and tendon at neck level, initial encounter; S09.90XA Unspecified injury of head, initial encounter; M50.322 Other cervical disc degeneration at C5-C6 level; M47.812 Spondylosis without myelopathy or radiculopathy, cervical region; J45.909 Unspecified asthma, uncomplicated; I10 Essential (primary) hypertension; F17.200 Nicotine dependence, unspecified, uncomplicated; Z79.899 Other long term (current) drug therapy; Z88.0 Allergy status to penicillin; Z91.013 Allergy to seafood; Z23 Encounter for immunization; W10.9XXA Fall (on) (from) unspecified stairs and steps, initial encounter
CPT/HCPCS: 99284 ×2; 96374 ×2; 96375 ×2; 96361 ×2; 96372 ×2; 90471 ×2; 12015 ×2; 36415; 93005; 86900; 86901; 80053; 84484; 85025; 85610; 85730; 86850; 72170; 71045; 72125; 70486; 70450; 90715; L0120; G0480; J2405; J1170; 80320

== ENCOUNTER 2022-10-14 08:56 | Emergency (ER) | payer OTHER ==
[2022-10-14] MEDS ORDERED: IPRATROPIUM-ALBUTEROL 3 ML NEB INHALATION STA (09:21)
[2022-10-14] MEDS ORDERED: methylPREDNISolone SOD SUCCI 125 MG/2 ML VIAL IM ONE (09:21)
[2022-10-14] MEDS ORDERED: predniSONE 20 MG TAB PO STA (09:38)
--- NOTE | 2022-10-14 09:44 | XR ---
EXAMINATION TYPE: XR chest 2V DATE OF EXAM: 10/14/2022 9:40 AM COMPARISON: Chest radiographs from 10/02/2022. TECHNIQUE: XR chest 2V Frontal and lateral views of the chest. CLINICAL INDICATION:Male, 42 years old with history of sob; FINDINGS: Lungs/Pleura: There is no evidence of pleural effusion, focal consolidation, or pneumothorax. Pulmonary vascularity: Unremarkable. Heart/mediastinum: Cardiomediastinal silhouette is unremarkable. Musculoskeletal: No acute osseous pathology. IMPRESSION: No acute cardiopulmonary disease/process. No change from prior examination.
--- NOTE | 2022-10-14 10:02 | ED ---
General Adult HPI - General Chief complaint: Shortness of Breath Stated complaint: asthma attack Time Seen by Provider: 10/14/22 09:03 Source: patient, RN notes reviewed Mode of arrival: ambulatory Limitations: no limitations - History of Present Illness Initial comments: 42-year-old male presents emergency Department chief complaint of asthma issues. 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 Patient states that he is his inhaler multiple times no relief denies any fevers or chills denies any significant productive cough, nasal congestion. Patient did have mild relief of his inhaler but is out of his inhaler. - Related Data Home Medications Medication Instructions Recorded Confirmed Albuterol Sulfate [Albuterol 2 puff INHALATION RT-Q4H PRN 04/25/20 07/15/21 Sulfate Hfa] Albuterol Nebulized [Ventolin 2.5 mg INHALATION RT-Q6H PRN 07/15/21 07/15/21 Nebulized] predniSONE [Deltasone] 20 mg PO DIRECTED 07/15/21 07/15/21 Previous Rx's Medication Instructions Recorded Albuterol Nebulized [Ventolin 2.5 mg INHALATION Q4H PRN #25 each 07/16/21 Nebulized] Azithromycin [Zithromax Z-pack (6 0 mg PO DIRECTED #1 packet 07/16/21 tabs)] predniSONE 50 mg PO DAILY #5 tab 07/16/21 Albuterol Sulfate [Proair Hfa] 1 - 2 puff INHALATION Q4H PRN #8.5 05/08/22 gm Ibuprofen [Motrin] 600 mg PO Q8HR PRN #30 tab 05/08/22 amLODIPine [Norvasc] 5 mg PO DAILY #30 tab 05/08/22 Albuterol Sulfate [Albuterol 2 puff PO Q4-6H PRN #8.5 gm 08/11/22 Sulfate Hfa] Famotidine [Zantac-360 10 mg PO Q24H #20 tablet 08/11/22 (Famotidine)] predniSONE 5 mg PO DAILY #20 tab 08/11/22 Albuterol Sulfate [Proair Hfa] 1 - 2 puff INHALATION Q4HR PRN 09/01/22 #8.5 gm Albuterol Sulfate [Albuterol 2 puff PO Q6H PRN #8.5 gm 09/27/22 Sulfate Hfa] Albuterol Sulfate [Albuterol 2 puff PO Q6H PRN #8.5 gm 09/27/22 Sulfate Hfa] amLODIPine [Norvasc] 5 mg PO DAILY #15 tab 09/27/22 amLODIPine [Norvasc] 5 mg PO DAILY #20 tab 09/27/22 Acetaminophen Tab [Tylenol Tab] 500 mg PO Q6H PRN #24 tablet 10/02/22 Cyclobenzaprine [Flexeril] 10 mg PO TID PRN #20 tab 10/02/22 Doxycycline [Vibramycin] 100 mg PO BID 1 Days #14 each 10/02/22 Ibuprofen [Motrin] 600 mg PO Q8HR PRN #30 tab 10/02/22 Albuterol Sulfate [Proair Hfa] 1 - 2 puff INHALATION Q4HR PRN 10/14/22 #8.5 gm Ipratropium-Albuterol Nebulize 3 ml INHALATION QID #25 each 10/14/22 [Duoneb 0.5 mg-3 mg/3 ml Soln] predniSONE 50 mg PO DAILY #5 tab 10/14/22 Allergies Allergy/AdvReac Type Severity Reaction Status Date / Time amoxicillin Allergy Rash/Hives Verified 10/14/22 09:01 Penicillins Allergy Rash/Hives Verified 10/14/22 09:01 shellfish derived [Shellfish] Allergy Swelling Verified 10/14/22 09:01 Review of Systems ROS Statement: Those systems with pertinent positive or pertinent negative responses have been documented in the HPI. ROS Other: All systems not noted in ROS Statement are negative. Past Medical History Past Medical History: Asthma, Hypertension History of Any Multi-Drug Resistant Organisms: None Reported Past Surgical History: Orthopedic Surgery Additional Past Surgical History / Comment(s): finger surgery Past Psychological History: No Psychological Hx Reported Smoking Status: Current some day smoker Past Alcohol Use History: Occasional Past Drug Use History: None Reported General Exam Limitations: no limitations General appearance: alert, in no apparent distress Head exam: Present: atraumatic, normocephalic, normal inspection Eye exam: Present: normal appearance, PERRL, EOMI. Absent: scleral icterus, conjunctival injection, periorbital swelling ENT exam: Present: normal exam, normal oropharynx, mucous membranes moist Neck exam: Present: normal inspection, full ROM. Absent: tenderness, meningismus, lymphadenopathy Respiratory exam: Present: wheezes, decreased breath sounds. Absent: normal lung sounds bilaterally, respiratory distress, rales, rhonchi, stridor Cardiovascular Exam: Present: regular rate, normal rhythm, normal heart sounds. Absent: systolic murmur, diastolic murmur, rubs, gallop, clicks Course Vital Signs 10/14/22 10/14/22 10/14/22 08:58 09:01 09:50 Temperature 97.6 F 98.2 F Pulse Rate 95 102 H 109 H Respiratory 20 20 Rate Blood Pressure 156/90 147/98 O2 Sat by Pulse 97 94 L Oximetry Medical Decision Making - Medical Decision Making Chest x-ray interpreted by me is unremarkable process as read by radiologist. Patient was given multiple DuoNeb treatments and feels greatly improved patient discharged with oral steroids, inhaler return parameters were discussed. Disposition Clinical Impression: Asthma exacerbation Disposition: HOME SELF-CARE Condition: Stable Instructions (If sedation given, give patient instructions): Asthma (ED) Additional Instructions: Please return to the Emergency Department if symptoms worsen or any other concerns. Prescriptions: Ipratropium-Albuterol Nebulize [Duoneb 0.5 mg-3 mg/3 ml Soln] 3 ml INHALATION QID #25 each predniSONE 50 mg PO DAILY #5 tab Albuterol Sulfate [Proair Hfa] 1 - 2 puff INHALATION Q4HR PRN #8.5 gm PRN Reason: difficulty in breathing Is patient prescribed a controlled substance at d/c from ED?: No Referrals: None,Stated [Primary Care Provider] - 1-2 days Timo Martinez DO [Doctor of Osteopathic Medicine] - 1-2 days Time of Disposition: 10:00
[2022-10-14 10:47] VITALS: BP 130/100; PULSE 97; RESP 18; TEMP 99.2
== END 2022-10-14 11:00 | disposition home or self-care (01) ==
LOC: EC 08:56
DX: J45.901 Unspecified asthma with (acute) exacerbation (principal); I10 Essential (primary) hypertension; F17.200 Nicotine dependence, unspecified, uncomplicated; Z79.899 Other long term (current) drug therapy; Z91.013 Allergy to seafood; Z88.0 Allergy status to penicillin
CPT/HCPCS: 94640; 71046; 99284; J7512

== ENCOUNTER 2022-11-15 17:09 | Emergency (ER) | payer OTHER ==
[2022-11-15 17:40] VITALS: RESP 18; TEMP 99.2
[2022-11-15] MEDS ORDERED: amLODIPine 5 MG TAB PO STA ×2 (17:57)
--- NOTE | 2022-11-15 18:52 | ED ---
Recheck HPI - General Chief Complaint: Recheck/Abnormal Lab/Rx Stated Complaint: hypertension Time Seen by Provider: 11/15/22 17:45 Source: patient, RN notes reviewed Mode of arrival: ambulatory Limitations: no limitations - History of Present Illness Initial Comments: 42-year-old male history of hypertension states he ran over the medication 2 weeks ago he states he was not allowed to get a physical for a job because of the high blood pressure. He denies a headache fevers chills nausea vomiting sweats chest pain or other symptoms he was on amlodipine 5 mg per day. He is in the process of trying get a new doctor. He was noted have a temperature 99.2 with denies any ears nose throat symptoms no cough or phlegm production no infectious processes. - Related Data Home Medications Medication Instructions Recorded Confirmed Acetaminophen Tab [Tylenol Tab] 500 - 1,000 mg PO Q6H PRN 11/15/22 11/15/22 Albuterol Sulfate [Albuterol 2 puff PO RT-Q4H PRN 11/15/22 11/15/22 Sulfate Hfa] Ipratropium-Albuterol Nebulize 3 ml INHALATION RT-QID PRN 11/15/22 11/15/22 [Duoneb 0.5 mg-3 mg/3 ml Soln] RX: Albuterol Nebulized [Ventolin 2.5 mg INHALATION RT-Q4H PRN 11/15/22 11/15/22 Nebulized] Previous Rx's Medication Instructions Recorded RX: amLODIPine [Norvasc] 5 mg PO DAILY #20 tab 09/27/22 RX: amLODIPine [Norvasc] 5 mg PO DAILY #30 tab 11/15/22 Allergies Allergy/AdvReac Type Severity Reaction Status Date / Time amoxicillin Allergy Rash/Hives Verified 11/15/22 17:40 Penicillins Allergy Rash/Hives Verified 11/15/22 17:40 shellfish derived [Shellfish] Allergy Swelling Verified 11/15/22 17:40 Review of Systems ROS Statement: Those systems with pertinent positive or pertinent negative responses have been documented in the HPI. ROS Other: All systems not noted in ROS Statement are negative. Past Medical History Past Medical History: Asthma, Hypertension History of Any Multi-Drug Resistant Organisms: None Reported Past Surgical History: Orthopedic Surgery Additional Past Surgical History / Comment(s): finger surgery Past Psychological History: No Psychological Hx Reported Smoking Status: Current some day smoker, Vaper Past Alcohol Use History: None Reported Past Drug Use History: Marijuana General Exam - General Exam Comments Initial Comments: This is a well-developed well-nourished awake alert oriented 4 male Limitations: no limitations General appearance: alert, in no apparent distress Head exam: Present: atraumatic, normocephalic, normal inspection Eye exam: Present: normal appearance, PERRL, EOMI. Absent: scleral icterus, conjunctival injection, periorbital swelling ENT exam: Present: normal exam, mucous membranes moist Neck exam: Present: normal inspection. Absent: tenderness, meningismus, lymphadenopathy Respiratory exam: Present: normal lung sounds bilaterally. Absent: respiratory distress, wheezes, rales, rhonchi, stridor Cardiovascular Exam: Present: regular rate, normal rhythm, normal heart sounds. Absent: systolic murmur, diastolic murmur, rubs, gallop, clicks GI/Abdominal exam: Present: soft, normal bowel sounds. Absent: distended, tenderness, guarding, rebound, rigid Extremities exam: Present: normal inspection, full ROM, normal capillary refill. Absent: tenderness, pedal edema, joint swelling, calf tenderness Back exam: Present: normal inspection Neurological exam: Present: alert, oriented X3, CN II-XII intact Psychiatric exam: Present: normal affect, normal mood Skin exam: Present: warm, dry, intact, normal color. Absent: rash Course Vital Signs 11/15/22 11/15/22 17:37 18:38 Temperature 99.2 F Pulse Rate 97 Respiratory 18 Rate Blood Pressure 130/88 132/90 O2 Sat by Pulse 97 Oximetry Medical Decision Making - Medical Decision Making No further workup is indicated patient received a amlodipine dose in the emergency department and we'll 1 for tomorrow's pharmacy is not open until Thursday he'll be given a month's supply Was pt. sent in by a medical professional or institution (, PA, [employer], urgent care, hospital, or jail...) When possible be specific @ -[No] Did you speak to anyone other than the patient for history (EMS, parent, family, police, friend...)? What history was obtained from this source @ -[No] Did you review nursing and triage notes (agree or disagree)? Why? @ -[I reviewed and agree with nursing and triage notes] Were old charts reviewed (outside hosp., previous admission, EMS record, old EKG, old radiological studies, urgent care reports/EKG's, jail records)? Report findings @ -[No old charts were reviewed] Differential Diagnosis (chest pain, altered mental status, abdominal pain women, abdominal pain men, vaginal bleeding, weakness, fever, dyspnea, syncope, headache, dizziness, GI bleed, back pain, seizure, CVA, palpatations, mental health)? @ -[not applicable] EKG interpreted by me (3pts min.). @ -[Not done] X-rays interpreted by me (1pt min.). @ -[None done] CT interpreted by me (1pt min.). @ -[None done] U/S interpreted by me (1pt. min.). @ -[None done] What testing was considered but not performed or refused? (CT, X-rays, U/S, labs)? Why? @ -[None] What meds were considered but not given or refused? Why? @ -[None] Did you discuss the management of the patient with other professionals (professionals i.e. , PA, [employer], lab, RT, psych nurse, social service liaison, floral designer salesperson, teacher, facility security officer, outpatient case manager)? Give summary @ -[No] Was smoking cessation discussed for >3mins.? @ -[No] Was critical care preformed (if so, how long)? @ -[No] Were there social determinants of health that impacted care today? How? (Homelessness, low income, unemployed, alcoholism, drug addiction, transportation, low edu. Level, literacy, decrease access to med. care, prison, rehab)? @ -[No] Was there de-escalation of care discussed even if they declined (Discuss DNR or withdrawal of care, Hospice)? DNR status @ -[No] What co-morbidities impacted this encounter? (DM, HTN, Smoking, COPD, CAD, Cancer, CVA, ARF, Chemo, Hep., AIDS, mental health diagnosis, sleep apnea, morbid obesity)? @ -[Hypertension] Was patient admitted / discharged? Hospital course, mention meds given and route, prescriptions, significant lab abnormalities, going to OR and other pertinent info. @ -[hospital course] Undiagnosed new problem with uncertain prognosis? @ -[No] Drug Therapy requiring intensive monitoring for toxicity (Heparin, Nitro, Insulin, Cardizem)? @ -[No] Were any procedures done? @ -[No] Diagnosis/symptom? @ -[Hypertension] Acute, or Chronic, or Acute on Chronic? @ -[Chronic] Uncomplicated (without systemic symptoms) or Complicated (systemic symptoms)? @ -[default] Side effects of treatment? @ -[No] Exacerbation, Progression, or Severe Exacerbation? @ -[No] Poses a threat to life or bodily function? How? (Chest pain, [place], [place], pneumonia, PE, COPD, DKA, ARF, appy, cholecystitis, CVA, Diverticulitis, Homicidal, Suicidal, threat to staff... and all critical care pts) @ -[No] Disposition Clinical Impression: Hypertension, Encounter for medication refill Disposition: HOME SELF-CARE Condition: Good Instructions (If sedation given, give patient instructions): Hypertension (ED) Prescriptions: RX: amLODIPine [Norvasc] 5 mg PO DAILY #30 tab Is patient prescribed a controlled substance at d/c from ED?: No Referrals: None,Stated [Primary Care Provider] - 1-2 days Decision Date: 11/15/22 Decision Time: 18:52
[2022-11-15 19:15] VITALS: BP 130/86; PULSE 90
== END 2022-11-15 19:09 | disposition home or self-care (01) ==
LOC: EC 17:09
DX: Z76.0 Encounter for issue of repeat prescription (principal); I10 Essential (primary) hypertension; J45.909 Unspecified asthma, uncomplicated; F12.90 Cannabis use, unspecified, uncomplicated; F17.290 Nicotine dependence, other tobacco product, uncomplicated; Z79.899 Other long term (current) drug therapy; Z88.0 Allergy status to penicillin; Z91.041 Radiographic dye allergy status
CPT/HCPCS: 99281; 99283

== ENCOUNTER 2023-01-05 07:48 | Emergency (ER) | payer OTHER ==
[2023-01-05 07:53] VITALS: BP 141/99; PULSE 92; RESP 18; TEMP 98.2
[2023-01-05] MEDS ORDERED: amLODIPine 5 MG TAB PO STA (08:03)
--- NOTE | 2023-01-05 08:09 | ED ---
General Adult HPI - General Chief complaint: Recheck/Abnormal Lab/Rx Stated complaint: COUGH Time Seen by Provider: 01/05/23 07:58 Source: patient, RN notes reviewed Mode of arrival: ambulatory Limitations: no limitations - History of Present Illness Initial comments: Patient is a pleasant 42-year-old male presenting to the emergency department with concern for refill for medications. Patient states he no longer sees Dr. Wright and has a difficult time finding a new provider. Patient requests refill of his albuterol and Norvasc. Patient does have mild cough however is chronic and does not feel he needs a treatment at this time. - Related Data Home Medications Medication Instructions Recorded Confirmed Acetaminophen Tab [Tylenol Tab] 500 - 1,000 mg PO Q6H PRN 11/15/22 11/15/22 Albuterol Nebulized [Ventolin 2.5 mg INHALATION RT-Q4H PRN 11/15/22 11/15/22 Nebulized] Albuterol Sulfate [Albuterol 2 puff PO RT-Q4H PRN 11/15/22 11/15/22 Sulfate Hfa] Ipratropium-Albuterol Nebulize 3 ml INHALATION RT-QID PRN 11/15/22 11/15/22 [Duoneb 0.5 mg-3 mg/3 ml Soln] Previous Rx's Medication Instructions Recorded amLODIPine [Norvasc] 5 mg PO DAILY #20 tab 09/27/22 amLODIPine [Norvasc] 5 mg PO DAILY #30 tab 11/15/22 Albuterol Inhaler [Ventolin Hfa 2 puff INHALATION Q4HR PRN #1 each 01/05/23 Inhaler] amLODIPine [Norvasc] 5 mg PO DAILY #30 tab 01/05/23 Allergies Allergy/AdvReac Type Severity Reaction Status Date / Time amoxicillin Allergy Rash/Hives Verified 01/05/23 07:52 Penicillins Allergy Rash/Hives Verified 01/05/23 07:52 shellfish derived [Shellfish] Allergy Swelling Verified 01/05/23 07:52 Review of Systems ROS Statement: Those systems with pertinent positive or pertinent negative responses have been documented in the HPI. ROS Other: All systems not noted in ROS Statement are negative. Constitutional: Denies: fever Eyes: Denies: eye pain ENT: Denies: ear pain Respiratory: Reports: as per HPI Cardiovascular: Denies: chest pain Endocrine: Denies: fatigue Gastrointestinal: Denies: abdominal pain Genitourinary: Denies: dysuria Past Medical History Past Medical History: Asthma, Hypertension History of Any Multi-Drug Resistant Organisms: None Reported Past Surgical History: Orthopedic Surgery Additional Past Surgical History / Comment(s): finger surgery Past Psychological History: No Psychological Hx Reported Smoking Status: Current some day smoker, Vaper Past Alcohol Use History: None Reported Past Drug Use History: Marijuana General Exam Limitations: no limitations General appearance: alert, in no apparent distress Head exam: Present: normocephalic Neck exam: Present: normal inspection Respiratory exam: Present: wheezes (Minimal expiratory wheeze) Cardiovascular Exam: Present: regular rate, normal rhythm GI/Abdominal exam: Present: soft. Absent: tenderness Extremities exam: Present: normal inspection. Absent: pedal edema, calf tenderness Neurological exam: Present: alert Psychiatric exam: Present: normal affect, normal mood Skin exam: Present: normal color Course Vital Signs 01/05/23 07:50 Temperature 98.2 F Pulse Rate 92 Respiratory 18 Rate Blood Pressure 141/99 O2 Sat by Pulse 96 Oximetry Medical Decision Making - Medical Decision Making Was pt. sent in by a medical professional or institution (, PA, C[employer]IPPER, urgent care, hospital, or correction...) When possible be specific @ -No Did you speak to anyone other than the patient for history (EMS, parent, family, police, friend...)? What history was obtained from this source @ -No Did you review nursing and triage notes (agree or disagree)? Why? @ -I reviewed and agree with nursing and triage notes Were old charts reviewed (outside hosp., previous admission, EMS record, old EKG, old radiological studies, urgent care reports/EKG's, correction records)? Report findings @ -No old charts were reviewed Differential Diagnosis (chest pain, altered mental status, abdominal pain women, abdominal pain men, vaginal bleeding, weakness, fever, dyspnea, syncope, headache, dizziness, GI bleed, back pain, seizure, CVA, palpatations, mental health)? @ -not applicable EKG interpreted by me (3pts min.). @ -As above X-rays interpreted by me (1pt min.). @ -None done CT interpreted by me (1pt min.). @ -None done U/S interpreted by me (1pt. min.). @ -None done What testing was considered but not performed or refused? (CT, X-rays, U/S, labs)? Why? @ -None What meds were considered but not given or refused? Why? @ -Considered albuterol treatment however patient does not want this Did you discuss the management of the patient with other professionals (professionals i.e. DrSharon, PA, CELERY STRIPPER, lab, RT, psych nurse, social work associate, aboriginal community council member, teacher, parachute/combatant diver officer, case consultant)? Give summary @ -No Was smoking cessation discussed for >3mins.? @ -No Was critical care preformed (if so, how long)? @ -No Were there social determinants of health that impacted care today? How? (Homelessness, low income, unemployed, alcoholism, drug addiction, transportation, low edu. Level, literacy, decrease access to med. care, senior living, rehab)? @ -No Was there de-escalation of care discussed even if they declined (Discuss DNR or withdrawal of care, Hospice)? DNR status @ -No What co-morbidities impacted this encounter? (DM, HTN, Smoking, COPD, CAD, Cancer, CVA, ARF, Chemo, Hep., AIDS, mental health diagnosis, sleep apnea, morbid obesity)? @ -None Was patient admitted / discharged? Hospital course, mention meds given and route, prescriptions, significant lab abnormalities, going to OR and other pertinent info. @ -Patient only wants refill of his 2 medications. Patient has bites follow-up primary care physician and will be provided several options Undiagnosed new problem with uncertain prognosis? @ -No Drug Therapy requiring intensive monitoring for toxicity (Heparin, Nitro, Insulin, Cardizem)? @ -No Were any procedures done? @ -No Diagnosis/symptom? @ -Cough, hypertension Acute, or Chronic, or Acute on Chronic? @ -Acute on chronic, acute on chronic Uncomplicated (without systemic symptoms) or Complicated (systemic symptoms)? @ -default Side effects of treatment? @ -No Exacerbation, Progression, or Severe Exacerbation? @ -No Poses a threat to life or bodily function? How? (Chest pain, [place], [place], pneumonia, PE, COPD, DKA, ARF, appy, cholecystitis, CVA, Diverticulitis, Homicidal, Suicidal, threat to staff... and all critical care pts) @ -No Disposition Clinical Impression: Cough, Hypertension, Encounter for medication refill Disposition: HOME SELF-CARE Condition: Stable Instructions (If sedation given, give patient instructions): Asthma (ED), Hypertension (ED) Additional Instructions: Prescription has been sent to pharmacy. Please do follow-up with primary care physician in the next couple days for recheck. Medications to generally be provided by your primary care physician. Return for difficulty breathing, increased cough or fever, increased blood pressure, worsening symptoms or other concerns Prescriptions: amLODIPine [Norvasc] 5 mg PO DAILY #30 tab Albuterol Inhaler [Ventolin Hfa Inhaler] 2 puff INHALATION Q4HR PRN #1 each PRN Reason: Dyspnea Is patient prescribed a controlled substance at d/c from ED?: No Referrals: Felipe Jacob MD [STAFF PHYSICIAN] - 1-2 days Catrachito Licona MD [STAFF PHYSICIAN] - 1-2 days Time of Disposition: 08:07
== END 2023-01-05 08:22 | disposition home or self-care (01) ==
LOC: EC 07:48
DX: Z76.0 Encounter for issue of repeat prescription (principal); R05.9 Cough, unspecified; I10 Essential (primary) hypertension; J45.909 Unspecified asthma, uncomplicated; F17.290 Nicotine dependence, other tobacco product, uncomplicated; F12.90 Cannabis use, unspecified, uncomplicated; Z79.899 Other long term (current) drug therapy; Z88.0 Allergy status to penicillin; Z91.013 Allergy to seafood
CPT/HCPCS: 99283

== ENCOUNTER 2023-02-02 08:35 | Emergency (ER) | payer OTHER ==
[2023-02-02 08:52] VITALS: RESP 20; TEMP 97.8
[2023-02-02] MEDS ORDERED: IPRATROPIUM-ALBUTEROL 3 ML NEB INHALATION STA (09:06)
--- NOTE | 2023-02-02 09:17 | XR ---
EXAMINATION TYPE: XR chest 2V DATE OF EXAM: 02/02/2023 COMPARISON: 10/14/22 HISTORY: Chest pain TECHNIQUE: Frontal and lateral views of the chest are obtained. FINDINGS: There is no focal air space opacity. No evidence for pneumothorax. No pleural effusion. The cardiac silhouette size is within normal limits. The osseous structures are grossly intact. IMPRESSION: 1. No acute cardiopulmonary process.
--- NOTE | 2023-02-02 10:15 | ED ---
General Adult HPI - General Chief complaint: Recheck/Abnormal Lab/Rx Stated complaint: sob Time Seen by Provider: 02/02/23 08:54 Source: patient, RN notes reviewed Mode of arrival: ambulatory Limitations: no limitations - History of Present Illness Initial comments: 42-year-old male presents emergency from chief complaint of shortness of breath. Patient states that he has history of asthma has been out of his inhalerincreasing wheezing. Patient here for medication refill. States he has a slight cough but nonproductive no fever no other complaints. - Related Data Home Medications Medication Instructions Recorded Confirmed Acetaminophen Tab [Tylenol Tab] 500 - 1,000 mg PO Q6H PRN 11/15/22 11/15/22 Albuterol Nebulized [Ventolin 2.5 mg INHALATION RT-Q4H PRN 11/15/22 11/15/22 Nebulized] Albuterol Sulfate [Albuterol 2 puff PO RT-Q4H PRN 11/15/22 11/15/22 Sulfate Hfa] Ipratropium-Albuterol Nebulize 3 ml INHALATION RT-QID PRN 11/15/22 11/15/22 [Duoneb 0.5 mg-3 mg/3 ml Soln] Previous Rx's Medication Instructions Recorded amLODIPine [Norvasc] 5 mg PO DAILY #20 tab 09/27/22 amLODIPine [Norvasc] 5 mg PO DAILY #30 tab 11/15/22 Albuterol Inhaler [Ventolin Hfa 2 puff INHALATION Q4HR PRN #1 each 01/05/23 Inhaler] amLODIPine [Norvasc] 5 mg PO DAILY #30 tab 01/05/23 Albuterol Inhaler [Ventolin Hfa 1 - 2 puff INHALATION Q6H PRN #1 02/02/23 Inhaler] each predniSONE 50 mg PO DAILY #5 tab 02/02/23 Allergies Allergy/AdvReac Type Severity Reaction Status Date / Time amoxicillin Allergy Rash/Hives Verified 02/02/23 08:52 Penicillins Allergy Rash/Hives Verified 02/02/23 08:52 shellfish derived [Shellfish] Allergy Swelling Verified 02/02/23 08:52 Review of Systems ROS Statement: Those systems with pertinent positive or pertinent negative responses have been documented in the HPI. ROS Other: All systems not noted in ROS Statement are negative. Past Medical History Past Medical History: Asthma, Hypertension History of Any Multi-Drug Resistant Organisms: None Reported Past Surgical History: Orthopedic Surgery Additional Past Surgical History / Comment(s): finger surgery Past Psychological History: No Psychological Hx Reported Smoking Status: Current some day smoker, Vaper Past Alcohol Use History: None Reported Past Drug Use History: Marijuana General Exam Limitations: no limitations General appearance: alert, in no apparent distress Head exam: Present: atraumatic, normocephalic, normal inspection Eye exam: Present: normal appearance, PERRL, EOMI. Absent: scleral icterus, conjunctival injection, periorbital swelling ENT exam: Present: normal exam, normal oropharynx, mucous membranes moist Neck exam: Present: normal inspection, full ROM. Absent: tenderness, meningismus, lymphadenopathy Respiratory exam: Present: wheezes. Absent: normal lung sounds bilaterally, respiratory distress, rales, rhonchi, stridor Cardiovascular Exam: Present: regular rate, normal rhythm, normal heart sounds. Absent: systolic murmur, diastolic murmur, rubs, gallop, clicks GI/Abdominal exam: Present: soft, normal bowel sounds. Absent: distended, tenderness, guarding, rebound, rigid Course Vital Signs 02/02/23 02/02/23 02/02/23 08:50 09:24 09:33 Temperature 97.8 F Pulse Rate 86 80 80 Respiratory 20 Rate Blood Pressure 138/93 O2 Sat by Pulse 97 Oximetry 02/02/23 10:26 Temperature Pulse Rate 67 Respiratory 20 Rate Blood Pressure 150/100 O2 Sat by Pulse 100 Oximetry EKG Findings - EKG Comments: EKG Findings:: EKG performed at 9:02 sinus rhythm with a rate of 69 [place] 175/90 QT status QTC 362/380 - EKG Results: EKG: interpreted by ERMD Medical Decision Making - Medical Decision Making Was pt. sent in by a medical professional or institution (, PA, STEM ROLLER, urgent care, hospital, or longterm...) When possible be specific @ -No Did you speak to anyone other than the patient for history (EMS, parent, family, police, friend...)? What history was obtained from this source @ -No Did you review nursing and triage notes (agree or disagree)? Why? @ -I reviewed and agree with nursing and triage notes Were old charts reviewed (outside hosp., previous admission, EMS record, old EKG, old radiological studies, urgent care reports/EKG's, longterm records)? Report findings @ -No old charts were reviewed Differential Diagnosis (chest pain, altered mental status, abdominal pain women, abdominal pain men, vaginal bleeding, weakness, fever, dyspnea, syncope, headache, dizziness, GI bleed, back pain, seizure, CVA, palpatations, mental health, musculoskeletal)? @ -nDifferential Dyspnea: Coronary syndrome, arrhythmia, tamponade, asthma, COPD, pulmonary embolism, pneumonia, pneumothorax, pulmonary effusion, anaphylaxis, diabetic ketoacidosis, flailed chest, pulmonary contusion, diaphragmatic rupture, anemia, neuromuscular, this is not meant to be an all-inclusive list. able EKG interpreted by me (3pts min.). @ -As above X-rays interpreted by me (1pt min.). @ -Chest x-ray shows no acute process. CT interpreted by me (1pt min.). @ -None done U/S interpreted by me (1pt. min.). @ -None done What testing was considered but not performed or refused? (CT, X-rays, U/S, labs)? Why? @ -None What meds were considered but not given or refused? Why? @ -None Did you discuss the management of the patient with other professionals (professionals i.e. , PA, STEM ROLLER, lab, RT, psych nurse, home health care social worker, ob scrub tech, teacher, information security officer, casework supervisor)? Give summary @ -No Was smoking cessation discussed for >3mins.? @ -No Was critical care preformed (if so, how long)? @ -No Were there social determinants of health that impacted care today? How? (Homelessness, low income, unemployed, alcoholism, drug addiction, transportation, low edu. Level, literacy, decrease access to med. care, care home, rehab)? @ -No Was there de-escalation of care discussed even if they declined (Discuss DNR or withdrawal of care, Hospice)? DNR status @ -No What co-morbidities impacted this encounter? (DM, HTN, Smoking, COPD, CAD, Cancer, CVA, ARF, Chemo, Hep., AIDS, mental health diagnosis, sleep apnea, morbid obesity)? @ -None Was patient admitted / discharged? Hospital course, mention meds given and route, prescriptions, significant lab abnormalities, going to OR and other [facility] info. @ -Discharge patient felt improved with DuoNeb treatment EKG and chest x-ray is unremarkable. Patient treated for mild asthma exacerbation Undiagnosed new problem with uncertain prognosis? @ -No Drug Therapy requiring intensive monitoring for toxicity (Heparin, Nitro, Insulin, Cardizem)? @ -No Were any procedures done? @ -No Diagnosis/symptom? @ -Asthma exacerbation, medication refill Acute, or Chronic, or Acute on Chronic? @ -Acute Uncomplicated (without systemic symptoms) or Complicated (systemic symptoms)? @ -Uncomplicated Side effects of treatment? @ -No Exacerbation, Progression, or Severe Exacerbation? @ -Exacerbation Poses a threat to life or bodily function? How? (Chest pain, [place], [place], pneumonia, PE, COPD, DKA, ARF, appy, cholecystitis, CVA, Diverticulitis, Homicidal, Suicidal, threat to staff... and all critical care pts) @ -No Disposition Clinical Impression: Encounter for medication refill, Asthma, Asthma exacerbation Disposition: HOME SELF-CARE Condition: Stable Instructions (If sedation given, give patient instructions): Asthma (ED) Additional Instructions: Please return to the Emergency Department if symptoms worsen or any other concerns. Prescriptions: predniSONE 50 mg PO DAILY #5 tab Albuterol Inhaler [Ventolin Hfa Inhaler] 1 - 2 puff INHALATION Q6H PRN #1 each PRN Reason: Shortness Of Breath Is patient prescribed a controlled substance at d/c from ED?: No Referrals: None,Stated [Primary Care Provider] - 1-2 days Time of Disposition: 10:15
[2023-02-02 10:34] VITALS: BP 150/100; PULSE 67
== END 2023-02-02 10:32 | disposition home or self-care (01) ==
LOC: EC 08:35
DX: J45.901 Unspecified asthma with (acute) exacerbation (principal); I10 Essential (primary) hypertension; F17.290 Nicotine dependence, other tobacco product, uncomplicated; F12.90 Cannabis use, unspecified, uncomplicated; Z76.0 Encounter for issue of repeat prescription; Z79.899 Other long term (current) drug therapy; Z88.0 Allergy status to penicillin; Z91.018 Allergy to other foods
CPT/HCPCS: 71046; 93005; 94640; 99285

== ENCOUNTER 2023-03-18 14:32 | Emergency (ER) | payer OTHER ==
[2023-03-18] MEDS ORDERED: IPRATROPIUM-ALBUTEROL 3 ML NEB INHALATION STA (15:04)
--- NOTE | 2023-03-18 15:21 | ED ---
SOB HPI - General Chief Complaint: Shortness of Breath Stated Complaint: asthma Time Seen by Provider: 03/18/23 14:45 Source: patient, RN notes reviewed Mode of arrival: ambulatory Limitations: no limitations - History of Present Illness Initial Comments: This is a 43-year-old male who presents to the emergency department for shortness of breath. States that he has a history of asthma and he is out of his rescue albuterol inhaler. Fraser like he started getting shortness of breath and wheezing starting yesterday. This is usually well treated with his rescue inhaler, however because he is out of this, his symptoms have since persisted. Denies any chest pain or coughing. Believes that this was triggered by his allergies. Denies any fevers or sick contacts. Denies any fevers, chills, sore throat, cough, chest pain, palpitations, abdominal pain, nausea, vomiting, diarrhea, back pain, or headaches. MD Complaint: shortness of breath - Related Data Home Medications Medication Instructions Recorded Confirmed Acetaminophen Tab [Tylenol Tab] 500 - 1,000 mg PO Q6H PRN 11/15/22 11/15/22 Albuterol Nebulized [Ventolin 2.5 mg INHALATION RT-Q4H PRN 11/15/22 11/15/22 Nebulized] Albuterol Sulfate [Albuterol 2 puff PO RT-Q4H PRN 11/15/22 11/15/22 Sulfate Hfa] Ipratropium-Albuterol Nebulize 3 ml INHALATION RT-QID PRN 11/15/22 11/15/22 [Duoneb 0.5 mg-3 mg/3 ml Soln] Previous Rx's Medication Instructions Recorded amLODIPine [Norvasc] 5 mg PO DAILY #20 tab 09/27/22 amLODIPine [Norvasc] 5 mg PO DAILY #30 tab 11/15/22 Albuterol Inhaler [Ventolin Hfa 2 puff INHALATION Q4HR PRN #1 each 01/05/23 Inhaler] amLODIPine [Norvasc] 5 mg PO DAILY #30 tab 01/05/23 Albuterol Inhaler [Ventolin Hfa 1 - 2 puff INHALATION Q6H PRN #1 02/02/23 Inhaler] each predniSONE 50 mg PO DAILY #5 tab 02/02/23 Albuterol Inhaler [Ventolin Hfa 1 - 2 puff INHALATION Q4-6H PRN #1 03/18/23 Inhaler] each predniSONE 50 mg PO DAILY 5 Days #5 tab 03/18/23 Allergies Allergy/AdvReac Type Severity Reaction Status Date / Time amoxicillin Allergy Rash/Hives Verified 03/18/23 14:44 Penicillins Allergy Rash/Hives Verified 03/18/23 14:44 shellfish derived [Shellfish] Allergy Swelling Verified 03/18/23 14:44 Review of Systems ROS Statement: Those systems with pertinent positive or pertinent negative responses have been documented in the HPI. ROS Other: All systems not noted in ROS Statement are negative. Past Medical History Past Medical History: Asthma, Hypertension History of Any Multi-Drug Resistant Organisms: None Reported Past Surgical History: Orthopedic Surgery Additional Past Surgical History / Comment(s): finger surgery Past Psychological History: No Psychological Hx Reported Smoking Status: Current some day smoker, Vaper Past Alcohol Use History: None Reported Past Drug Use History: Marijuana General Exam Limitations: no limitations General appearance: alert, in no apparent distress Head exam: Present: atraumatic, normocephalic, normal inspection Respiratory exam: Present: wheezes, decreased breath sounds Cardiovascular Exam: Present: regular rate, normal rhythm, normal heart sounds. Absent: systolic murmur, diastolic murmur, rubs, gallop, clicks Neurological exam: Present: alert, oriented X3, CN II-XII intact Psychiatric exam: Present: normal affect, normal mood Skin exam: Present: warm, dry, intact, normal color. Absent: rash Course Vital Signs 03/18/23 03/18/23 03/18/23 14:42 15:19 15:29 Temperature 98.0 F Pulse Rate 102 H 76 78 Respiratory 20 Rate Blood Pressure 162/99 O2 Sat by Pulse 96 Oximetry 03/18/23 15:57 Temperature 98.2 F Pulse Rate 114 H Respiratory 18 Rate Blood Pressure 108/80 O2 Sat by Pulse 96 Oximetry Medical Decision Making - Medical Decision Making This is a 43-year-old male who presents to the emergency department for shortness of breath. Was pt. sent in by a medical professional or institution? @ -No Did you speak to anyone other than the patient for history? @ -No Did you review nursing and triage notes? @ -Yes, and I agree, it is accurate with regards to the patient's symptoms. Were old charts reviewed? @ -No Differential Diagnosis? @ -Differential Dyspnea: Coronary syndrome, arrhythmia, tamponade, asthma, COPD, pulmonary embolism, pneumonia, pneumothorax, pulmonary effusion, anaphylaxis, diabetic ketoacidosis, flailed chest, pulmonary contusion, diaphragmatic rupture, anemia, neuromuscular, this is not meant to be an all-inclusive list. EKG interpreted by me (3pts min.)? @ -Not obtained X-rays interpreted by me (1pt min.)? @ -Not obtained CT interpreted by me (1pt min.)? @ -Not obtained U/S interpreted by me (1pt. min.)? @ -Not obtained What testing was considered but not performed? (CT, X-rays, U/S, labs)? Why? @ -I recommended a chest x-ray and Cepheid 4-plex testing, however the patient declined. What meds were considered but not given? Why? @ -Not obtained Did you discuss the management of the patient with other professionals? @ -No Did you reconcile home meds? @ -No Was smoking cessation discussed for >3mins.? @ -I discussed smoking cessation for greater than 3 minutes. The risk of smoking were discussed with the patient including but not limited to risks of cancer, stroke, coronary artery disease and COPD. Also discussed with patient were multiple methods of quitting smoking. Lastly we discussed the financial cost of smoking. Was critical care preformed (if so, how long)? @ -No Were there social determinants of health that impacted care today? How? (Homelessness, low income, unemployed, alcoholism, drug addiction, transportat ion, low edu. Level, literacy, decrease access to med. care, intermediate, rehab)? @ -No Was there de-escalation of care discussed even if they declined? (Discuss DNR or withdrawal of care, Hospice)? @ -No What co-morbidities impacted this encounter? (DM, HTN, Smoking, COPD, CAD, Cancer, CVA, Hep., AIDS, mental health diagnosis, sleep apnea, morbid obesity)? @ -Asthma, tobacco use Was patient admitted / discharged? @ -Discharged. Physical exam was suggestive of an asthma exacerbation due to the wheezing and diminished breath sounds. I did recommend a chest x-ray and Cepheid 4-plex testing, however he declined, as he was fairly confident that this was an asthma exacerbation. DuoNeb breathing treatment administered, which the patient states was very helpful. Rx for a 5 day course of prednisone and a refill on the albuterol inhaler was provided with dosing instructions reviewed. Discussed with the patient that he needs become established with a primary care provider for ongoing asthma management. Especially given that he seems to have recurrent asthma attacks, he may need to be on a preventative medication. A list of local primary care providers was provided to the patient. Undiagnosed new problem with uncertain prognosis? @ -None Drug Therapy requiring intensive monitoring for toxicity (Heparin, Nitro, Insulin, Cardizem)? @ -None Were any procedures done? @ -None Diagnosis/symptom? @ -Asthma exacerbation Acute, or Chronic, or Acute on Chronic? @ -Acute Uncomplicated (without systemic symptoms) or Complicated (systemic symptoms)? @ -Uncomplicated Side effects of treatment? @ -None Exacerbation, Progression, or Severe Exacerbation] @ -Exacerbation Poses a threat to life or bodily function? @ -Not at this time Return precautions reviewed in depth, the patient is instructed to return to the emergency department with any new, worsening, or concerning symptoms. Patient verbalized understanding. This case was discussed in detail with the attending ED physician, Dr. Field. Presentation, findings, and treatment plan discussed in detail as well. Disposition Clinical Impression: Asthma exacerbation Disposition: HOME SELF-CARE Instructions (If sedation given, give patient instructions): Asthma (ED), Bronchospasm (ED) Additional Instructions: Return to the emergency department with any new, worsening, or concerning symptoms. Take the prednisone daily for 5 days. You can use the albuterol inhaler every 4-6 hours as needed. Try to become established with a primary care provider for ongoing management of your asthma. I have listed several local primary care providers below. Prescriptions: predniSONE 50 mg PO DAILY 5 Days #5 tab Albuterol Inhaler [Ventolin Hfa Inhaler] 1 - 2 puff INHALATION Q4-6H PRN #1 each PRN Reason: Shortness Of Breath Is patient prescribed a controlled substance at d/c from ED?: No Referrals: None,Stated [Primary Care Provider] - 1-2 days Forms: [facility]
[2023-03-18 15:59] VITALS: BP 108/80; PULSE 114; RESP 18; TEMP 98.2
== END 2023-03-18 16:00 | disposition home or self-care (01) ==
LOC: EC 14:32
DX: J45.901 Unspecified asthma with (acute) exacerbation (principal); I10 Essential (primary) hypertension; F17.290 Nicotine dependence, other tobacco product, uncomplicated; F12.90 Cannabis use, unspecified, uncomplicated; Z88.0 Allergy status to penicillin; Z91.013 Allergy to seafood; Z79.899 Other long term (current) drug therapy
CPT/HCPCS: 94640; 99284

== ENCOUNTER 2023-04-25 10:26 | Emergency (ER) | payer OTHER ==
[2023-04-25 10:34] VITALS: RESP 18; TEMP 98.1
[2023-04-25] MEDS ORDERED: hydrALAZINE HCL 20 MG/ML 1 ML VIAL IVP STA (10:55)
--- NOTE | 2023-04-25 11:06 | ED ---
General Adult HPI - General Chief complaint: Recheck/Abnormal Lab/Rx Stated complaint: Med Refill Time Seen by Provider: 04/25/23 10:35 Source: patient, RN notes reviewed, old records reviewed Mode of arrival: ambulatory Limitations: no limitations - History of Present Illness Initial comments: This is a 43-year-old male who presents emergency Department complaining that he has no high blood pressure meds. Patient states his primary medical care doctor has been switched he doesn't have an appointment on his. Patient states she wants blood pressure medication and albuterol. Patient states he has no symptoms today. Patient denies headache patient denies numbness weakness per patient denies lightheadedness or dizziness. Patient denies any chest pain difficulty breathing. Patient has any recent fever chills or cough per patient denies any abdominal pain. - Related Data Home Medications Medication Instructions Recorded Confirmed Albuterol Inhaler [Ventolin Hfa 1 - 2 puff INHALATION RT-Q4H PRN 04/25/23 0 04/25/23 Inhaler] Previous Rx's Medication Instructions Recorded amLODIPine [Norvasc] 5 mg PO DAILY #30 tab 01/05/23 Albuterol Inhaler [Ventolin Hfa 1 - 2 puff INHALATION Q6HR PRN #2 04/25/23 Inhaler] each amLODIPine [Norvasc] 5 mg PO DAILY 30 Days #30 tab 04/25/23 Allergies Allergy/AdvReac Type Severity Reaction Status Date / Time amoxicillin Allergy Rash/Hives Verified 04/25/23 10:50 Penicillins Allergy Rash/Hives Verified 04/25/23 10:50 shellfish derived [Shellfish] Allergy Swelling Verified 04/25/23 10:50 Review of Systems ROS Statement: Those systems with pertinent positive or pertinent negative responses have been documented in the HPI. ROS Other: All systems not noted in ROS Statement are negative. Past Medical History Past Medical History: Asthma, Hypertension History of Any Multi-Drug Resistant Organisms: None Reported Past Surgical History: Orthopedic Surgery Additional Past Surgical History / Comment(s): finger surgery Past Psychological History: No Psychological Hx Reported Smoking Status: Current some day smoker, Vaper Past Alcohol Use History: None Reported Past Drug Use History: Marijuana General Exam - General Exam Comments Initial Comments: GENERAL: Patient is well-developed and well-nourished. Patient is nontoxic and well- hydrated and is in no acute distress. ENT: Neck is soft and supple. No significant lymphadenopathy is noted. Oropharynx is clear. Moist mucous membranes. Neck has full range of motion without charu citing any pain. EYES: The sclera were anicteric and conjunctiva were pink and moist. Extraocular movements were intact and pupils were equal round and reactive to light. Eyelids were unremarkable. PULMONARY: Unlabored respirations. Good breath sounds bilaterally. No audible rales rhonchi or wheezing was noted. CARDIOVASCULAR: There is a regular rate and rhythm without any murmurs gallops or rubs. ABDOMEN: Soft and nontender with normal bowel sounds. SKIN: Skin is clear with no lesions or rashes and otherwise unremarkable. NEUROLOGIC: Patient is alert and oriented x3. Cranial nerves II through XII are grossly intact. Motor and sensory are also intact. Normal speech, volume and content. Symmetrical smile. MUSCULOSKELETAL: Normal extremities with adequate strength and full range of motion. LYMPHATICS: No significant lymphadenopathy is noted PSYCHIATRIC: Normal psychiatric evaluation. Limitations: no limitations Course Vital Signs 04/25/23 04/25/23 04/25/23 10:31 10:36 11:35 Temperature 98.1 F Pulse Rate 108 H 98 Pulse Rate [ 108 H Administrative Appeals Tribunal Member ] Respiratory 18 18 Rate Blood Pressure 177/116 146/96 O2 Sat by Pulse 99 Oximetry 04/25/23 12:12 Temperature Pulse Rate 93 Pulse Rate [ Administrative Appeals Tribunal Member ] Respiratory 18 Rate Blood Pressure 146/70 O2 Sat by Pulse 99 Oximetry Medical Decision Making - Medical Decision Making EKG was interpreted by myself shows a sinus rhythm at 80 bpm AL interval is on a 54 QRS is 81 QT interval 336 QTC is 381. Patient's EKG shows no ST segment elevation or depression. Was pt. sent in by a medical professional or institution (, PA, DRYING MACHINE BACK TENDER, urgent care, hospital, or shelter...) When possible be specific @ -No Did you speak to anyone other than the patient for history (EMS, parent, family, police, friend...)? What history was obtained from this source @ -No Did you review nursing and triage notes (agree or disagree)? Why? @ -I reviewed and agree with nursing and triage notes Were old charts reviewed (outside hosp., previous admission, EMS record, old EKG, old radiological studies, urgent care reports/EKG's, shelter records)? Report findings @ -No old charts were reviewed Differential Diagnosis (chest pain, altered mental status, abdominal pain women, abdominal pain men, vaginal bleeding, weakness, fever, dyspnea, syncope, headach e, dizziness, GI bleed, back pain, seizure, CVA, palpatations, mental health, musculoskeletal)? @ -not applicable EKG interpreted by me (3pts min.). @ -As above X-rays interpreted by me (1pt min.). @ -None done CT interpreted by me (1pt min.). @ -None done U/S interpreted by me (1pt. min.). @ -None done What testing was considered but not performed or refused? (CT, X-rays, U/S, labs)? Why? @ -None What meds were considered but not given or refused? Why? @ -None Did you discuss the management of the patient with other professionals (professionals i.e. , PA, DRYING MACHINE BACK TENDER, lab, RT, psych nurse, perinatal social worker, wind turbine technician, teacher, chief quality officer, case aide)? Give summary @ -No Was smoking cessation discussed for >3mins.? @ -No Was critical care preformed (if so, how long)? @ -No Were there social determinants of health that impacted care today? How? (Homelessness, low income, unemployed, alcoholism, drug addiction, tr ansportation, low edu. Level, literacy, decrease access to med. care, usp, rehab)? @ -No Was there de-escalation of care discussed even if they declined (Discuss DNR or withdrawal of care, Hospice)? DNR status @ -No What co-morbidities impacted this encounter? (DM, HTN, Smoking, COPD, CAD, Cancer, CVA, ARF, Chemo, Hep., AIDS, mental health diagnosis, sleep apnea, morbid obesity)? @ -None Was patient admitted / discharged? Hospital course, mention meds given and route, prescriptions, significant lab abnormalities, going to OR and other pertinent info. @ -Patient's blood pressure was elevated so the patient had an IV and hydralazine patient spoke with came down nicely. Patient had no symptoms throughout his ED course. Patient will be sent home with high blood pressure medications and a prescription for his albuterol inhalers Undiagnosed new problem with uncertain prognosis? @ -No Drug Therapy requiring intensive monitoring for toxicity (Heparin, Nitro, Insulin, Cardizem)? @ -No Were any procedures done? @ -No Diagnosis/symptom? @ -Hypertensive urgency Acute, or Chronic, or Acute on Chronic? @ -Acute Uncomplicated (without systemic symptoms) or Complicated (systemic symptoms)? @ -Complicated Side effects of treatment? @ -No Exacerbation, Progression, or Severe Exacerbation? @ -No Poses a threat to life or bodily function? How? (Chest pain, USA, [place], pneumonia, PE, COPD, DKA, ARF, appy, cholecystitis, CVA, Diverticulitis, Homicidal, Suicidal, threat to staff... and all critical care pts) @ -No - Lab Data Result diagrams: 04/25/23 11:00 04/25/23 11:00 Lab Results 04/25/23 04/25/23 Range/Units 11:00 11:00 WBC 6.1 (3.8-10.6) k/uL RBC 4.76 (4.30-5.90) m/uL Hgb 15.6 (13.0-17.5) gm/dL Hct 46.0 (39.0-53.0) % MCV 96.5 (80.0-100.0) fL MCH 32.7 (25.0-35.0) pg MCHC 33.9 (31.0-37.0) g/dL RDW 13.2 (11.5-15.5) % Plt Count 239 (150-450) k/uL MPV 8.2 Neutrophils % 56 % Lymphocytes % 30 % Monocytes % 5 % Eosinophils % 7 % Basophils % 0 % Neutrophils # 3.4 (1.3-7.7) k/uL Lymphocytes # 1.8 (1.0-4.8) k/uL Monocytes # 0.3 (0-1.0) k/uL Eosinophils # 0.4 (0-0.7) k/uL Basophils # 0.0 (0-0.2) k/uL Sodium 139 (137-145) mmol/L Potassium 4.4 (3.5-5.1) mmol/L Chloride 106 (98-107) mmol/L Carbon Dioxide 26 (22-30) mmol/L Anion Gap 7 mmol/L BUN 16 (9-20) mg/dL Creatinine 0.90 (0.66-1.25) mg/dL Est GFR (CKD-EPI)AfAm >90 (>60 ml/min/1.73 sqM) Est GFR (CKD-EPI)NonAf >90 (>60 ml/min/1.73 sqM) Glucose 114 H (74-99) mg/dL Calcium 9.4 (8.4-10.2) mg/dL Total Bilirubin 1.7 H (0.2-1.3) mg/dL AST 75 H (17-59) U/L ALT 57 H (4-49) U/L Alkaline Phosphatase 40 (38-126) U/L Total Protein 7.8 (6.3-8.2) g/dL Albumin 4.5 (3.5-5.0) g/dL Disposition Clinical Impression: Hypertensive urgency, Medication refill Disposition: HOME SELF-CARE Condition: Good Prescriptions: amLODIPine [Norvasc] 5 mg PO DAILY 30 Days #30 tab Albuterol Inhaler [Ventolin Hfa Inhaler] 1 - 2 puff INHALATION Q6HR PRN #2 each PRN Reason: Difficulty breathing Is patient prescribed a controlled substance at d/c from ED?: No Referrals: None,Stated [Primary Care Provider] - 1-2 days Time of Disposition: 12:05
[2023-04-25 11:09] LABS: Basophils % (A) 0 %; Eosinophils # (A) 0.4 k/uL (0-0.7); Eosinophils % (A) 7 %; HGB 15.6 gm/dL (13.0-17.5); Lymphocytes # (A) 1.8 k/uL (1.0-4.8); Lymphocytes % (A) 30 %; MCH 32.7 pg (25.0-35.0); MCHC 33.9 g/dL (31.0-37.0); MCV 96.5 fL (80.0-100.0); Mean Platelet Volume 8.2; Monocytes # (A) 0.3 k/uL (0-1.0); Monocytes % (A) 5 %; Neutrophils # (A) 3.4 k/uL (1.3-7.7); Neutrophils % (A) 56 %; Platelet Count 239 k/uL (150-450); RBC 4.76 m/uL (4.30-5.90); RDW 13.2 % (11.5-15.5); WBC 6.1 k/uL (3.8-10.6)
[2023-04-25 11:26] LABS: ALT 57 U/L (4-49); AST 75 U/L (17-59); African American GFR (CKD) >90 (>60 ml/min/1.73 sqM); Albumin 4.5 g/dL (3.5-5.0); Alkaline Phosphatase 40 U/L (38-126); Anion Gap 7 mmol/L; Blood Urea Nitrogen 16 mg/dL (9-20); Calcium 9.4 mg/dL (8.4-10.2); Carbon Dioxide 26 mmol/L (22-30); Chloride 106 mmol/L (98-107); Glucose 114 mg/dL (74-99); Non-African American GFR(CKD) >90 (>60 ml/min/1.73 sqM); Potassium 4.4 mmol/L (3.5-5.1); Sodium 139 mmol/L (137-145); Total Bilirubin 1.7 mg/dL (0.2-1.3); Total Protein 7.8 g/dL (6.3-8.2)
[2023-04-25 12:12] VITALS: BP 146/70; PULSE 93
== END 2023-04-25 12:12 | disposition home or self-care (01) ==
LOC: EC 10:26
DX: Z76.0 Encounter for issue of repeat prescription (principal); I16.0 Hypertensive urgency; I10 Essential (primary) hypertension; J45.909 Unspecified asthma, uncomplicated; F17.290 Nicotine dependence, other tobacco product, uncomplicated; F12.90 Cannabis use, unspecified, uncomplicated; Z79.899 Other long term (current) drug therapy; Z88.0 Allergy status to penicillin; Z91.013 Allergy to seafood
CPT/HCPCS: 36415; 93005; 80053; 85025; 99282; 96374; J0360

== ENCOUNTER 2023-06-10 02:35 | Emergency (ER) | payer OTHER ==
[2023-06-10 03:07] LABS: Basophils % (A) 1 %; Eosinophils # (A) 0.5 k/uL (0-0.7); Eosinophils % (A) 8 %; HGB 15.7 gm/dL (13.0-17.5); Lymphocytes # (A) 2.5 k/uL (1.0-4.8); Lymphocytes % (A) 40 %; MCHC 34.2 g/dL (31.0-37.0); MCV 96.7 fL (80.0-100.0); Mean Platelet Volume 7.4; Monocytes # (A) 0.3 k/uL (0-1.0); Monocytes % (A) 6 %; Neutrophils # (A) 2.7 k/uL (1.3-7.7); Neutrophils % (A) 43 %; Platelet Count 198 k/uL (150-450); RBC 4.76 m/uL (4.30-5.90); RDW 12.2 % (11.5-15.5); WBC 6.3 k/uL (3.8-10.6)
[2023-06-10 03:13] LABS: ALT 55 U/L (4-49); AST 63 U/L (17-59); African American GFR (CKD) >90 (>60 ml/min/1.73 sqM); Albumin 4.9 g/dL (3.5-5.0); Alkaline Phosphatase 38 U/L (38-126); Anion Gap 13 mmol/L; Blood Urea Nitrogen 15 mg/dL (9-20); Calcium 9.3 mg/dL (8.4-10.2); Carbon Dioxide 23 mmol/L (22-30); Chloride 98 mmol/L (98-107); Glucose 94 mg/dL (74-99); Non-African American GFR(CKD) >90 (>60 ml/min/1.73 sqM); Potassium 4.3 mmol/L (3.5-5.1); Sodium 134 mmol/L (137-145); Total Bilirubin 2.9 mg/dL (0.2-1.3); Total Protein 8.4 g/dL (6.3-8.2)
--- NOTE | 2023-06-10 03:31 | ED ---
General Adult HPI - General Chief complaint: Chest Pain Stated complaint: Chest pain, acid reflux Time Seen by Provider: 06/10/23 03:12 Source: patient Mode of arrival: ambulatory Limitations: no limitations - History of Present Illness Initial comments: Dictation was produced using [employer] dictation software. please excuse any grammatical, word or spelling errors. Chief Complaint: 43-year-old male presents emergency for chest pain History of Present Illness: Patient's 43-year-old male with past medical history of hypertension and asthma. Her last 3 days she's been dealing with chest pain. Patient states that his symptoms began after having consumed corn beef sandwich. Since that he's been having some chest pain. Patient states that sharp and worse when he eats. Patient states that his symptoms are worse when he takes a deep breath. As any shortness of breath. Patient feels as though his blood pressure is high. The ROS documented in this emergency department record has been reviewed and confirmed by me. Those systems with pertinent positive or negative responses have been documented in the HPI. All other systems are other negative and/or noncontributory. - Related Data Home Medications Medication Instructions Recorded Confirmed Albuterol Inhaler [Ventolin Hfa 1 - 2 puff INHALATION RT-Q4H PRN 04/25/23 04/25/23 Inhaler] Previous Rx's Medication Instructions Recorded amLODIPine [Norvasc] 5 mg PO DAILY #30 tab 01/05/23 Albuterol Inhaler [Ventolin Hfa 1 - 2 puff INHALATION Q6HR PRN #2 04/25/23 Inhaler] each amLODIPine [Norvasc] 5 mg PO DAILY 30 Days #30 tab 04/25/23 Allergies Allergy/AdvReac Type Severity Reaction Status Date / Time amoxicillin Allergy Rash/Hives Verified 06/10/23 02:40 Penicillins Allergy Rash/Hives Verified 06/10/23 02:40 shellfish derived [Shellfish] Allergy Swelling Verified 06/10/23 02:40 Review of Systems ROS Statement: Those systems with pertinent positive or pertinent negative responses have been documented in the HPI. ROS Other: All systems not noted in ROS Statement are negative. Past Medical History Past Medical History: Asthma, GERD/Reflux, Hypertension History of Any Multi-Drug Resistant Organisms: None Reported Past Surgical History: Orthopedic Surgery Additional Past Surgical History / Comment(s): finger surgery Past Psychological History: No Psychological Hx Reported Smoking Status: Former smoker, Vaper Past Alcohol Use History: None Reported Past Drug Use History: Marijuana General Exam - General Exam Comments Initial Comments: PHYSICAL EXAM: General Impression: Alert and oriented x3, not in acute distress HEENT: Normocephalic atraumatic, extra-ocular movements intact, pupils equal and reactive to light bilaterally, mucous membranes moist. Cardiovascular: Heart regular rate and rhythm Chest: Able to complete full sentences, no retractions, no tachypnea Abdomen: abdomen soft, non-tender, non-distended, no organomegaly Musculoskeletal: Pulses present and equal in all extremities, no peripheral edema Motor: no focal deficits noted Neurological: CN II-XII grossly intact, no focal motor or sensory deficits noted Skin: Intact with no visualized rashes Psych: Normal affect and mood Limitations: no limitations Course Vital Signs 06/10/23 02:36 Temperature 99.1 F Pulse Rate 105 H Respiratory 20 Rate Blood Pressure 145/97 O2 Sat by Pulse 97 Oximetry EKG Findings - EKG Comments: EKG Findings:: My EKG interpretation: Ventricular rate 92, sinus rhythm,. 165, QRS 81, QTc 383. No DC prolongation, no QTC prolongation, no ST or T-wave changes noted. DC depressions in multiple leads. Medical Decision Making - Medical Decision Making Was pt. sent in by a medical professional or institution ([facility], SWAT TEAM MEMBER, urgent care, hospital, or [place] health care facility...) When possible be specific @ -No Did you speak to anyone other than the patient for history (EMS, parent, family, police, friend...)? What history was obtained from this source @ -No Did you review nursing and triage notes (agree or disagree)? Why? @ -I reviewed and agree with nursing and triage notes Were old charts reviewed (outside hosp., previous admission, EMS record, old EKG, old radiological studies, urgent care reports/EKG's, [place] [facility] facility records)? Report findings @ -No old charts were reviewed Differential Diagnosis (chest pain, altered mental status, abdominal pain women, abdominal pain men, vaginal bleeding, musculoskeletal, weakness, fever, dyspnea, syncope, headache, dizziness, GI bleed, back pain, seizure, CVA, palpatations, mental health)? @ -Differential Chest Pain: Stable Angina, Unstable Angina, STEMI, NSTEMI Aortic Dissection, Pneumothorax, Musculoskeletal, Esophageal Spasm GERD, Cholecystitis, Pancreatitis, Zoster, this is not meant to be an all-inclusive list. EKG interpreted by me (3pts min.). @ -See above X-rays interpreted by me (1pt min.). @ -Chest x-ray unremarkable CT interpreted by me (1pt min.). @ -None done U/S interpreted by me (1pt. min.). @ -None done What testing was considered but not performed or refused? (CT, X-rays, U/S, labs)? Why? @ -None What meds were considered but not given or refused? Why? @ -None Did you discuss the management of the patient with other professionals (professionals i.e. , PA, SWAT TEAM MEMBER, lab, RT, psych nurse, social service liaison, admiralty lawyer, teacher, chief lifestyle officer, ed case manager)? Give summary @ -No Was smoking cessation discussed for >3mins.? @ -No Was critical care preformed (if so, how long)? @ -No Were there social determinants of health that impacted care today? How? (Homelessness, low income, unemployed, alcoholism, drug addiction, transportation, low edu. Level, literacy, decrease access to med. care, half-way, rehab)? @ -No Was there de-escalation of care discussed even if they declined (Discuss DNR or withdrawal of care, Hospice)? DNR status @ -No What co-morbidities impacted this encounter? (DM, HTN, Smoking, COPD, CAD, Cancer, CVA, ARF, Chemo, Hep., AIDS, mental health diagnosis, sleep apnea, morbid obesity)? @ -None Was patient admitted / discharged? Hospital course, mention meds given and route, prescriptions, significant lab abnormalities, going to OR and other pertinent info. @ -43-year-old male presents emergency Department atypical chest pain states that is having sharp chest pain only when he swallows. States that the pain is mild. Not worse with laying flat no changes when leaning forward. Vital signs are stable. Patient does have noticeable DC depressions in some of his EKG leads however there is no ST elevations. Clinically no concern for pericarditis. Laboratory evaluation obtained. CBC, coag panel metabolic panel is unremarkable. One is negative. Chest x-ray nonacute. Patient told to follow-up with primary care doctor. Undiagnosed new problem with uncertain prognosis? @ -No Drug Therapy requiring intensive monitoring for toxicity (Heparin, Nitro, Insulin, Cardizem)? @ -No Were any procedures done? @ -No Diagnosis/symptom? Acute, or Chronic, or Acute on Chronic? Uncomplicated (without systemic symptoms) or Complicated (systemic symptoms)? @ -1. Atypical chest pain, no high-risk features Side effects of treatment? @ -No Exacerbation, Progression, or Severe Exacerbation? @ -No Poses a threat to life or bodily function? How? (Chest pain, USA, [place], pneumonia, PE, COPD, DKA, ARF, appy, cholecystitis, CVA, Diverticulitis, Homicidal, Suicidal, threat to staff... and all critical care pts) @ -No - Lab Data Result diagrams: 06/10/23 02:48 06/10/23 02:48 Lab Results 06/10/23 06/10/23 06/10/23 Range/Units 02:48 02:48 02:48 WBC 6.3 (3.8-10.6) k/uL RBC 4.76 (4.30-5.90) m/uL Hgb 15.7 (13.0-17.5) gm/dL Hct 46.0 (39.0-53.0) % MCV 96.7 (80.0-100.0) fL MCH 33.0 (25.0-35.0) pg MCHC 34.2 (31.0-37.0) g/dL RDW 12.2 (11.5-15.5) % Plt Count 198 (150-450) k/uL MPV 7.4 Neutrophils % 43 % Lymphocytes % 40 % Monocytes % 6 % Eosinophils % 8 % Basophils % 1 % Neutrophils # 2.7 (1.3-7.7) k/uL Lymphocytes # 2.5 (1.0-4.8) k/uL Monocytes # 0.3 (0-1.0) k/uL Eosinophils # 0.5 (0-0.7) k/uL Basophils # 0.0 (0-0.2) k/uL PT 10.1 (9.0-12.0) sec INR 1.0 (<1.2) APTT 23.3 (22.0-30.0) sec Sodium 134 L (137-145) mmol/L Potassium 4.3 (3.5-5.1) mmol/L Chloride 98 (98-107) mmol/L Carbon Dioxide 23 (22-30) mmol/L Anion Gap 13 mmol/L BUN 15 (9-20) mg/dL Creatinine 0.99 (0.66-1.25) mg/dL Est GFR (CKD-EPI)AfAm >90 (>60 ml/min/1.73 sqM) Est GFR (CKD-EPI)NonAf >90 (>60 ml/min/1.73 sqM) Glucose 94 (74-99) mg/dL Calcium 9.3 (8.4-10.2) mg/dL Magnesium 2.0 (1.6-2.3) mg/dL Total Bilirubin 2.9 H (0.2-1.3) mg/dL AST 63 H (17-59) U/L ALT 55 H (4-49) U/L Alkaline Phosphatase 38 (38-126) U/L Troponin I (0.000-0.034) ng/mL Total Protein 8.4 H (6.3-8.2) g/dL Albumin 4.9 (3.5-5.0) g/dL 06/10/23 Range/Units 02:48 WBC (3.8-10.6) k/uL RBC (4.30-5.90) m/uL Hgb (13.0-17.5) gm/dL Hct (39.0-53.0) % MCV (80.0-100.0) fL MCH (25.0-35.0) pg MCHC (31.0-37.0) g/dL RDW (11.5-15.5) % Plt Count (150-450) k/uL MPV Neutrophils % % Lymphocytes % % Monocytes % % Eosinophils % % Basophils % % Neutrophils # (1.3-7.7) k/uL Lymphocytes # (1.0-4.8) k/uL Monocytes # (0-1.0) k/uL Eosinophils # (0-0.7) k/uL Basophils # (0-0.2) k/uL PT (9.0-12.0) sec INR (<1.2) APTT (22.0-30.0) sec Sodium (137-145) mmol/L Potassium (3.5-5.1) mmol/L Chloride (98-107) mmol/L Carbon Dioxide (22-30) mmol/L Anion Gap mmol/L BUN (9-20) mg/dL Creatinine (0.66-1.25) mg/dL Est GFR (CKD-EPI)AfAm (>60 ml/min/1.73 sqM) Est GFR (CKD-EPI)NonAf (>60 ml/min/1.73 sqM) Glucose (74-99) mg/dL Calcium (8.4-10.2) mg/dL Magnesium (1.6-2.3) mg/dL Total Bilirubin (0.2-1.3) mg/dL AST (17-59) U/L ALT (4-49) U/L Alkaline Phosphatase (38-126) U/L Troponin I <0.012 (0.000-0.034) ng/mL Total Protein (6.3-8.2) g/dL Albumin (3.5-5.0) g/dL Disposition Clinical Impression: Chest pain Disposition: HOME SELF-CARE Condition: Fair Instructions (If sedation given, give patient instructions): Chest Pain (ED) Is patient prescribed a controlled substance at d/c from ED?: No Referrals: Rich Espinal MD [REFERRING] - 1-2 days Cristo Domínguez MD [REFERRING] - 1-2 days Sangita Toribio MD [STAFF PHYSICIAN] - 1-2 days Jose Sanches MD [REFERRING] - 1-2 days
[2023-06-10 03:41] LABS: Partial Thromboplastin Time 23.3 sec (22.0-30.0); Prothrombin Time 10.1 sec (9.0-12.0)
[2023-06-10] MEDS ORDERED: MAG HYDROX/AL HYDROX/SIMETH 30 ML, HYOSCYAMINE ELIXIR 10 ML, LIDOCAINE 2% GLYDO JELLY 1... PO STA ×3 (05:03)
--- NOTE | 2023-06-10 05:22 | XR ---
EXAM: XR Chest, 2 Views CLINICAL HISTORY: ITS.REASON XR Reason: Chest Pain TECHNIQUE: Frontal and lateral views of the chest. COMPARISON: 02/02/2023 FINDINGS: Lungs: Unremarkable. No consolidation. Pleural space: Unremarkable. No pneumothorax. Heart: Unremarkable. No cardiomegaly. Mediastinum: Unremarkable. Bones/joints: Unremarkable. IMPRESSION: Normal chest x-rays.
[2023-06-10 05:42] VITALS: BP 133/95; PULSE 92; RESP 18; TEMP 97.9
== END 2023-06-10 05:30 | disposition home or self-care (01) ==
LOC: EC 02:35
DX: R07.89 Other chest pain (principal); J45.909 Unspecified asthma, uncomplicated; I10 Essential (primary) hypertension; F17.290 Nicotine dependence, other tobacco product, uncomplicated; F12.90 Cannabis use, unspecified, uncomplicated; Z88.0 Allergy status to penicillin; Z91.013 Allergy to seafood; Z79.899 Other long term (current) drug therapy
CPT/HCPCS: 36415; 71046; 80053; 83735; 84484; 85025; 85610; 85730; 93005; 99285

== ENCOUNTER 2023-09-23 10:57 | Emergency (ER) | payer OTHER ==
[2023-09-23 11:06] VITALS: BP 134/92; TEMP 98.2
[2023-09-23] MEDS ORDERED: ALBUTEROL NEBULIZED 2.5 MG/3 ML INHALATION STA (11:41)
[2023-09-23] MEDS ORDERED: IPRATROPIUM 0.5 MG/2.5 ML NEBU INHALATION STA (11:41)
[2023-09-23] MEDS ORDERED: dexAMETHasone 4 MG TAB PO STA (11:41)
--- NOTE | 2023-09-23 11:49 | ED ---
General Adult HPI - General Chief complaint: Shortness of Breath Stated complaint: SANTHOSH Time Seen by Provider: 09/23/23 11:08 Source: patient Mode of arrival: ambulatory Limitations: no limitations - History of Present Illness Initial comments: Dictation was produced using [employer] dictation software. please excuse any grammatical, word or spelling errors. Chief Complaint: 43-year-old male presents emergency department for asthma exacerbation History of Present Illness: Patient is a 43-year-old male with history of lifelong asthma. He was seen recently by medical professional told had asthma attack. He was prescribed nebulizer albuterol however he doesn't have a nebulizer. He does have a metered-dose inhaler. Patient states her last one day he's been having worsening respiratory distress. Patient denies any history of COPD he does not smoke. Denies any other symptoms. To him he feels like his usual asthma exacerbation. The ROS documented in this emergency department record has been reviewed and confirmed by me. Those systems with pertinent positive or negative responses have been documented in the HPI. All other systems are other negative and/or noncontributory. - Related Data Home Medications Medication Instructions Recorded Confirmed Albuterol Inhaler [Ventolin Hfa 1 - 2 puff INHALATION RT-Q4H PRN 04/25/23 04/25/23 Inhaler] Previous Rx's Medication Instructions Recorded amLODIPine [Norvasc] 5 mg PO DAILY #30 tab 01/05/23 Albuterol Inhaler [Ventolin Hfa 1 - 2 puff INHALATION Q6HR PRN #2 04/25/23 Inhaler] each amLODIPine [Norvasc] 5 mg PO DAILY 30 Days #30 tab 04/25/23 Allergies Allergy/AdvReac Type Severity Reaction Status Date / Time amoxicillin Allergy Rash/Hives Verified 09/23/23 11:06 Penicillins Allergy Rash/Hives Verified 09/23/23 11:06 shellfish derived [Shellfish] Allergy Swelling Verified 09/23/23 11:06 Review of Systems ROS Statement: Those systems with pertinent positive or pertinent negative responses have been documented in the HPI. ROS Other: All systems not noted in ROS Statement are negative. Past Medical History Past Medical History: Asthma, GERD/Reflux, Hypertension History of Any Multi-Drug Resistant Organisms: None Reported Past Surgical History: Orthopedic Surgery Additional Past Surgical History / Comment(s): finger surgery Past Psychological History: No Psychological Hx Reported Smoking Status: Former smoker, Vaper Past Alcohol Use History: None Reported Past Drug Use History: Marijuana General Exam - General Exam Comments Initial Comments: PHYSICAL EXAM: General Impression: Alert and oriented x3, mildly dyspneic HEENT: Normocephalic atraumatic, extra-ocular movements intact, pupils equal and reactive to light bilaterally, mucous membranes moist. Cardiovascular: Heart regular rate and rhythm Chest: Diffuse wheezing Abdomen: abdomen soft, non-tender, non-distended, no organomegaly Musculoskeletal: Pulses present and equal in all extremities, no peripheral edema Motor: no focal deficits noted Neurological: CN II-XII grossly intact, no focal motor or sensory deficits noted Skin: Intact with no visualized rashes Limitations: no limitations Course Vital Signs 09/23/23 09/23/23 09/23/23 11:04 12:05 12:18 Temperature 98.2 F Pulse Rate 112 H 91 88 Respiratory 18 Rate Blood Pressure 134/92 O2 Sat by Pulse 92 L Oximetry Medical Decision Making - Medical Decision Making Was pt. sent in by a medical professional or institution (, PA, GRADALL OPERATOR, urgent care, hospital, or long term...) When possible be specific @ -No Did you speak to anyone other than the patient for history (EMS, parent, family, police, friend...)? What history was obtained from this source @ -No Did you review nursing and triage notes (agree or disagree)? Why? @ -I reviewed and agree with nursing and triage notes Were old charts reviewed (outside hosp., previous admission, EMS record, old EKG, old radiological studies, urgent care reports/EKG's, long term records)? Report findings @ -No old charts were reviewed Differential Diagnosis (chest pain, altered mental status, abdominal pain women, abdominal pain men, vaginal bleeding, musculoskeletal, weakness, fever, dyspnea, syncope, headache, dizziness, GI bleed, back pain, seizure, CVA, palpatations, mental health)? @ -Differential Dyspnea: Coronary syndrome, arrhythmia, tamponade, asthma, COPD, pulmonary embolism, pneumonia, pneumothorax, pulmonary effusion, anaphylaxis, diabetic ketoacidosis, flailed chest, pulmonary contusion, diaphragmatic rupture, anemia, neuromuscular, this is not meant to be an all-inclusive list. EKG interpreted by me (3pts min.). @ -None done X-rays interpreted by me (1pt min.). @ -Chest x-ray shows no acute processes CT interpreted by me (1pt min.). @ -None done U/S interpreted by me (1pt. min.). @ -None done What testing was considered but not performed or refused? (CT, X-rays, U/S, labs)? Why? @ -None What meds were considered but not given or refused? Why? @ -None Did you discuss the management of the patient with other professionals (professionals i.e. , PA, GRADALL OPERATOR, lab, RT, psych nurse, drug abuse social worker, skidway man, teacher, tactical debriefer officer, correctional case manager)? Give summary @ -No Was smoking cessation discussed for >3mins.? @ -No Was critical care preformed (if so, how long)? @ -No Were there social determinants of health that impacted care today? How? (Homelessness, low income, unemployed, alcoholism, drug addiction, transportation, low edu. Level, literacy, decrease access to med. care, [facility], rehab)? @ -No Was there de-escalation of care discussed even if they declined (Discuss DNR or withdrawal of care, Hospice)? DNR status @ -No What co-morbidities impacted this encounter? (DM, HTN, Smoking, COPD, CAD, Cancer, CVA, ARF, Chemo, Hep., AIDS, mental health diagnosis, sleep apnea, morbid obesity)? @ -None Was patient admitted / discharged? Hospital course, mention meds given and route, prescriptions, significant lab abnormalities, going to OR and other pertinent info. @ -43-year-old male with extensive history of asthma presents to the emergency room for mild acute asthma exacerbation. Vital signs are stable. Patient wheezing and minimally dyspneic given breathing treatment and observed in emergency department for 2 hours. Reevaluated after initial breathing treatment with improved symptoms. Patient revealed for discharge. He does have outpatient follow-up. Told to follow up with his primary care doctor for nebulizer machine. Undiagnosed new problem with uncertain prognosis? @ -No Drug Therapy requiring intensive monitoring for toxicity (Heparin, Nitro, Insulin, Cardizem)? @ -No Were any procedures done? @ -No Diagnosis/symptom? Acute, or Chronic, or Acute on Chronic? Uncomplicated (without systemic symptoms) or Complicated (systemic symptoms)? @ -Asthma exacerbation Side effects of treatment? @ -No Exacerbation, Progression, or Severe Exacerbation? @ -No Poses a threat to life or bodily function? How? (Chest pain, [place], [place], pneumonia, PE, COPD, DKA, ARF, appy, cholecystitis, CVA, Diverticulitis, Homicidal, Suicidal, threat to staff... and all critical care pts) @ -yes Disposition Clinical Impression: Asthma exacerbation Disposition: HOME SELF-CARE Condition: Good Instructions (If sedation given, give patient instructions): Asthma (ED) Is patient prescribed a controlled substance at d/c from ED?: No Referrals: Sangita Toribio MD [Primary Care Provider] - 1-2 days Time of Disposition: 13:18
--- NOTE | 2023-09-23 11:54 | XR ---
EXAMINATION TYPE: XR chest 2V DATE OF EXAM: 09/23/2023 COMPARISON: 06/10/2023 INDICATION: Asthma, difficulty breathing TECHNIQUE: Frontal and lateral views of the chest are obtained. FINDINGS: The heart size is normal. The pulmonary vasculature is normal. The lungs are clear. IMPRESSION: 1. No acute pulmonary process.
[2023-09-23 13:53] VITALS: PULSE 96; RESP 20
== END 2023-09-23 13:28 | disposition home or self-care (01) ==
LOC: EC 10:57
DX: J45.901 Unspecified asthma with (acute) exacerbation (principal); I10 Essential (primary) hypertension; F17.290 Nicotine dependence, other tobacco product, uncomplicated; F12.90 Cannabis use, unspecified, uncomplicated; Z88.0 Allergy status to penicillin; Z91.013 Allergy to seafood; Z79.899 Other long term (current) drug therapy
CPT/HCPCS: 94640; 93005; 71046; 99285; J8540

== ENCOUNTER 2023-10-07 06:36 | Emergency (ER) | payer OTHER ==
[2023-10-07] MEDS ORDERED: DOXYCYCLINE 100 MG CAP PO STA (07:02)
[2023-10-07] MEDS ORDERED: cefTRIAXone 1,000 MG VIAL (IM USE) IM STA (07:02)
[2023-10-07] MEDS ORDERED: metroNIDAZOLE 500 MG TAB PO STA (07:04)
[2023-10-07 07:10] VITALS: BP 119/86; PULSE 89; RESP 18; TEMP 97.5
--- NOTE | 2023-10-07 07:10 | ED ---
General Adult HPI - General Chief complaint: Urogenital Stated complaint: STD testing Time Seen by Provider: 10/07/23 07:00 Source: patient, RN notes reviewed Mode of arrival: ambulatory Limitations: no limitations - History of Present Illness Initial comments: 43-year-old -Burm[place] male presents the emergency department with a chief complaint of exposure to STD. Patient reports that he recently had that tested positive for Trichomonas. He denies any complaints at this time. Denies any penile discharge, rashes or lesions, testicular pain or back pain. Hematuria or dysuria. - Related Data Home Medications Medication Instructions Recorded Confirmed Albuterol Inhaler [Ventolin Hfa 1 - 2 puff INHALATION RT-Q4H PRN 04/25/23 04/25/23 Inhaler] Previous Rx's Medication Instructions Recorded amLODIPine [Norvasc] 5 mg PO DAILY #30 tab 01/05/23 Albuterol Inhaler [Ventolin Hfa 1 - 2 puff INHALATION Q6HR PRN #2 04/25/23 Inhaler] each amLODIPine [Norvasc] 5 mg PO DAILY 30 Days #30 tab 04/25/23 Doxycycline [Vibramycin] 100 mg PO BID #20 capsule 10/07/23 Allergies Allergy/AdvReac Type Severity Reaction Status Date / Time amoxicillin Allergy Rash/Hives Verified 10/07/23 06:52 Penicillins Allergy Rash/Hives Verified 10/07/23 06:52 shellfish derived [Shellfish] Allergy Swelling Verified 10/07/23 06:52 Review of Systems ROS Statement: Those systems with pertinent positive or pertinent negative responses have been documented in the HPI. ROS Other: All systems not noted in ROS Statement are negative. Past Medical History Past Medical History: Asthma, GERD/Reflux, Hypertension History of Any Multi-Drug Resistant Organisms: None Reported Past Surgical History: Orthopedic Surgery Additional Past Surgical History / Comment(s): finger surgery Past Psychological History: No Psychological Hx Reported Smoking Status: Former smoker, Vaper Past Alcohol Use History: None Reported Past Drug Use History: Marijuana General Exam - General Exam Comments Initial Comments: General: Alert, in no acute distress Head: atraumatic normocephalic. Eyes PERRL, EOMI intact, mucous membranes moist Respiratory: Lungs clear to auscultation bilaterally Cardiovascular: Heart rate regular rate and rhythm Abdominal: Soft without guarding or rebound Extremities: Normal inspection with full range of motion and normal capillary refill Neuroogic: alert and oriented 3, CN II-XII intact, able to ambulate with steady gait Skin: warm dry and intact with normal color Limitations: no limitations Course Vital Signs 10/07/23 06:51 Temperature 97.5 F L Pulse Rate 89 Respiratory 18 Rate Blood Pressure 119/86 O2 Sat by Pulse 98 Oximetry Medical Decision Making - Medical Decision Making Was pt. sent in by a medical professional or institution (, SARA, UTILITY WORKER FORGE, urgent care, hospital, or halfway...) When possible be specific @ -[No] Did you speak to anyone other than the patient for history (EMS, parent, family, police, friend...)? What history was obtained from this source @ -[No] Did you review nursing and triage notes (agree or disagree)? Why? @ -[I reviewed and agree with nursing and triage notes] Were old charts reviewed (outside hosp., previous admission, EMS record, old E KG, old radiological studies, urgent care reports/EKG's, halfway records)? Report findings @ -[No old charts were reviewed] Differential Diagnosis (chest pain, altered mental status, abdominal pain women, abdominal pain men, vaginal bleeding, weakness, fever, dyspnea, syncope, headache, dizziness, GI bleed, back pain, seizure, CVA, palpatations, mental h ealth, musculoskeletal)? @ -[not applicable] EKG interpreted by me (3pts min.). @ -[As above] X-rays interpreted by me (1pt min.). @ -[None done] CT interpreted by me (1pt min.). @ -[None done] U/S interpreted by me (1pt. min.). @ -[None done] What testing was considered but not performed or refused? (CT, X-rays, U/S, labs)? Why? @ -[None] What meds were considered but not given or refused? Why? @ -[None] Did you discuss the management of the patient with other professionals (professionals i.e. SARA Rowe, UTILITY WORKER FORGE, lab, RT, psych nurse, child protective services social worker, mechanical design technician, teacher, science and operations officer, case finisher)? Give summary @ -[No] Was smoking cessation discussed for >3mins.? @ -[No] Was critical care preformed (if so, how long)? @ -[No] Were there social determinants of health that impacted care today? How? (Homelessness, low income, unemployed, alcoholism, drug addiction, transportation, low edu. Level, literacy, decrease access to med. care, half-way, rehab)? @ -[No] Was there de-escalation of care discussed even if they declined (Discuss DNR or withdrawal of care, Hospice)? DNR status @ -[No] What co-morbidities impacted this encounter? (DM, HTN, Smoking, COPD, CAD, Cancer, CVA, ARF, Chemo, Hep., AIDS, mental health diagnosis, sleep apnea, morbid obesity)? @ -[None] Was patient admitted / discharged? Hospital course, mention meds given and route, prescriptions, significant lab abnormalities, going to OR and other pertinent info. @ -Discharged. This a pleasant 43-year-old -Burm[place] male who presents the emergency department exposure to STD. Physical exam essentially unremarkable. Patient will have gonorrhea and chlamydia results pending. Patient will be treated prophylactically with Rocephin, doxycycline and metrodinazole. She provided a prescription for doxycycline Patient educated on the importance of refraining from sexual activity for 10 days. Discharged in stable condition. Return precautions discussed at length. Case is discussed with Dr. Leach, ED attending who agrees with plan of care Undiagnosed new problem with uncertain prognosis? @ -[No] Drug Therapy requiring intensive monitoring for toxicity (Heparin, Nitro, Insulin, Cardizem)? @ -[No] Were any procedures done? @ -[No] Diagnosis/symptom? @ -Exposure to STD Acute, or Chronic, or Acute on Chronic? @ -Acute Uncomplicated (without systemic symptoms) or Complicated (systemic symptoms)? @ -Uncomplicated Side effects of treatment? @ -[No] Exacerbation, Progression, or Severe Exacerbation? @ -[No] Poses a threat to life or bodily function? How? (Chest pain, [place], [place], pneumonia, PE, COPD, DKA, ARF, appy, cholecystitis, CVA, Diverticulitis, Homicidal, Suicidal, threat to staff... and all critical care pts) @ -Low likelihood - Lab Data Lab Results 10/07/23 Range/Units 07:04 Urine Color Light Yellow Urine Appearance Clear (Clear) Urine pH 5.5 (5.0-8.0) Ur Specific [place] 1.017 (1.001-1.035) Urine Protein Negative (Negative) Urine Glucose (UA) Negative (Negative) Urine Ketones Negative (Negative) Urine Blood Negative (Negative) Urine Nitrite Negative (Negative) Urine Bilirubin Negative (Negative) Urine Urobilinogen <2.0 (<2.0) mg/dL Ur Leukocyte Esterase Negative (Negative) Disposition Clinical Impression: Exposure to STD Disposition: HOME SELF-CARE Condition: Stable Instructions (If sedation given, give patient instructions): Chlamydia (ED), Sexually Transmitted Diseases (ED), Safe Sex Practices (ED), Gonorrhea (ED), Trichomoniasis (ED) Additional Instructions: Please refrain from sexual activity for the next 10 days Finish complete course of antibiotics Return if worsening symptoms Prescriptions: Doxycycline [Vibramycin] 100 mg PO BID #20 capsule Is patient prescribed a controlled substance at d/c from ED?: No Referrals: Sangita Toribio MD [Primary Care Provider] - 1-2 days Time of Disposition: 07:09
[2023-10-07 07:22] LABS: Appearance,Urine Clear (Clear); Bilirubin,Urine Negative (Negative); Blood,Urine Negative (Negative); Color,Urine Light Yellow; Glucose,Urine (UA) Negative (Negative); Ketones,Urine Negative (Negative); Leukocyte Esterase,Urine Negative (Negative); Nitrite,Urine Negative (Negative); PH, Urine 5.5 (5.0-8.0); Protein,Urine Negative (Negative); Specific Gravity,Urine 1.017 (1.001-1.035); Urobilinogen,Urine <2.0 mg/dL (<2.0)
[2023-10-08 14:57] LABS: C. trachomatis,PCR Negative (Negative); N. gonorrhoeae,PCR Negative (Negative)
== END 2023-10-07 07:34 | disposition home or self-care (01) ==
LOC: EC 06:36
DX: Z20.2 Contact with and (suspected) exposure to infections with a predominantly sexual mode of transmission (principal); I10 Essential (primary) hypertension; J45.909 Unspecified asthma, uncomplicated; Z87.891 Personal history of nicotine dependence; Z79.899 Other long term (current) drug therapy; Z88.0 Allergy status to penicillin; Z91.013 Allergy to seafood
CPT/HCPCS: 81003; 87491; 87591; 99283; 96372; J0696

== ENCOUNTER 2024-01-12 07:39 | Emergency (ER) | payer OTHER ==
--- NOTE | 2024-01-12 08:02 | ED ---
Recheck HPI - General Chief Complaint: Recheck/Abnormal Lab/Rx Stated Complaint: med refill Time Seen by Provider: 01/12/24 07:55 Source: patient, RN notes reviewed Mode of arrival: ambulatory Limitations: no limitations - History of Present Illness Initial Comments: This is a 43-year-old male who presents to the emergency department for a medication refill. Patient has a history of asthma and states that he needs a refill on his albuterol inhaler. Patient denies any symptoms such as chest pain, coughing, or shortness of breath. States that he just wants to make sure he has one available to him to use as needed. Currently having difficulties with scheduling and seeing his primary care provider. MD Complaint: medication refill request - Related Data Home Medications Medication Instructions Recorded Confirmed Albuterol Inhaler [Ventolin Hfa 1 - 2 puff INHALATION RT-Q4H PRN 04/25/23 04/25/23 Inhaler] Previous Rx's Medication Instructions Recorded amLODIPine [Norvasc] 5 mg PO DAILY #30 tab 01/05/23 Albuterol Inhaler [Ventolin Hfa 1 - 2 puff INHALATION Q6HR PRN #2 04/25/23 Inhaler] each amLODIPine [Norvasc] 5 mg PO DAILY 30 Days #30 tab 04/25/23 Doxycycline [Vibramycin] 100 mg PO BID #20 capsule 10/07/23 Albuterol Sulfate [Albuterol 1 puff PO Q4-6H PRN #8.5 gm 01/12/24 Sulfate Hfa] Allergies Allergy/AdvReac Type Severity Reaction Status Date / Time amoxicillin Allergy Rash/Hives Verified 01/12/24 07:55 ceftriaxone [From Rocephin] Allergy Rash/Hives Verified 01/12/24 07:55 Penicillins Allergy Rash/Hives Verified 01/12/24 07:55 shellfish derived [Shellfish] Allergy Swelling Verified 01/12/24 07:55 Review of Systems ROS Statement: Those systems with pertinent positive or pertinent negative responses have been documented in the HPI. ROS Other: All systems not noted in ROS Statement are negative. Past Medical History Past Medical History: Asthma, GERD/Reflux, Hypertension History of Any Multi-Drug Resistant Organisms: None Reported Past Surgical History: Orthopedic Surgery Additional Past Surgical History / Comment(s): finger surgery Past Psychological History: No Psychological Hx Reported Smoking Status: Former smoker, Vaper Past Alcohol Use History: None Reported Past Drug Use History: Marijuana General Exam Limitations: no limitations General appearance: alert, in no apparent distress Head exam: Present: atraumatic, normocephalic, normal inspection Respiratory exam: Present: normal lung sounds bilaterally. Absent: respiratory distress, wheezes, rales, rhonchi, stridor Cardiovascular Exam: Present: regular rate, normal rhythm, normal heart sounds. Absent: systolic murmur, diastolic murmur, rubs, gallop, clicks Neurological exam: Present: alert, oriented X3, CN II-XII intact Psychiatric exam: Present: normal affect, normal mood Skin exam: Present: warm, dry, intact, normal color. Absent: rash Course Vital Signs 01/12/24 07:53 Temperature 98.7 F Pulse Rate 56 L Respiratory 18 Rate Blood Pressure 142/99 O2 Sat by Pulse 100 Oximetry Medical Decision Making - Medical Decision Making This is a 43 year old male who presents to the emergency department for a medication refill. Was pt. sent in by a medical professional or institution? @ -No Did you speak to anyone other than the patient for history? @ -No Did you review nursing and triage notes? @ -Yes, and I agree, it is accurate with regards to the patient's symptoms. Were old charts reviewed? @ -No Differential Diagnosis? @ -Not applicable EKG interpreted by me (3pts min.)? @ -Not obtained X-rays interpreted by me (1pt min.)? @ -Not obtained CT interpreted by me (1pt min.)? @ -Not obtained U/S interpreted by me (1pt. min.)? @ -Not obtained What testing was considered but not performed? (CT, X-rays, U/S, labs)? Why? @ -None What meds were considered but not given? Why? @ -None Did you discuss the management of the patient with other professionals? @ -No Did you reconcile home meds? @ -No Was smoking cessation discussed for >3mins.? @ -I discussed smoking cessation for greater than 3 minutes. The risk of smoking were discussed with the patient including but not limited to risks of cancer, stroke, coronary artery disease and COPD. Also discussed with patient were multiple methods of quitting smoking. Lastly we discussed the financial cost of smoking. Was critical care preformed (if so, how long)? @ -No Were there social determinants of health that impacted care today? How? (Homelessness, low income, unemployed, alcoholism, drug addiction, transportation, low edu. Level, literacy, decrease access to med. care, snf, rehab)? @ -No Was there de-escalation of care discussed even if they declined? (Discuss DNR or withdrawal of care, Hospice)? @ -No What co-morbidities impacted this encounter? (DM, HTN, Smoking, COPD, CAD, Cancer, CVA, Hep., AIDS, mental health diagnosis, sleep apnea, morbid obesity)? @ -Smoking, asthma Was patient admitted / discharged? @ -Discharged. Patient had no symptoms with regards to the asthma and no testing was performed. Albuterol inhaler was refilled as requested. Patient advised that he needs to make sure he is following up with his primary care provider for ongoing medical management and medication refills. Undiagnosed new problem with uncertain prognosis? @ -None Drug Therapy requiring intensive monitoring for toxicity (Heparin, Nitro, Insulin, Cardizem)? @ -None Were any procedures done? @ -None Diagnosis/symptom? @ -Encounter for medication refill Acute, or Chronic, or Acute on Chronic? @ -Acute Uncomplicated (without systemic symptoms) or Complicated (systemic symptoms)? @ -Uncomplicated Side effects of treatment? @ -None Exacerbation, Progression, or Severe Exacerbation] @ -Not applicable Poses a threat to life or bodily function? @ -No Return precautions reviewed in depth, the patient is instructed to return to the emergency department with any new, worsening, or concerning symptoms. Patient verbalized understanding. This case was discussed in detail with the attending ED physician, Dr. Noble. Presentation, findings, and treatment plan discussed in detail as well. Disposition Clinical Impression: Encounter for medication refill, Asthma, Nicotine dependence Disposition: HOME SELF-CARE Instructions (If sedation given, give patient instructions): Asthma (ED) Additional Instructions: Return to the emergency department with any new, worsening, or concerning symptoms. Follow up with your primary care provider in 1-2 days. Prescriptions: Albuterol Sulfate [Albuterol Sulfate Hfa] 1 puff PO Q4-6H PRN #8.5 gm PRN Reason: Shortness Of Breath Is patient prescribed a controlled substance at d/c from ED?: No Referrals: Sangita Toribio MD [Primary Care Provider] - 1-2 days Time of Disposition: 08:02
[2024-01-12 08:07] VITALS: BP 142/99; PULSE 56; RESP 18; TEMP 98.7
== END 2024-01-12 08:18 | disposition home or self-care (01) ==
LOC: EC 07:39
DX: Z76.0 Encounter for issue of repeat prescription (principal); J45.909 Unspecified asthma, uncomplicated; F17.290 Nicotine dependence, other tobacco product, uncomplicated; Z91.013 Allergy to seafood; Z88.8 Allergy status to other drugs, medicaments and biological substances; Z88.0 Allergy status to penicillin
CPT/HCPCS: 99283; 99406

== ENCOUNTER 2024-04-18 05:51 | Emergency (ER) | payer OTHER ==
[2024-04-18 05:56] VITALS: BP 142/93; TEMP 97.6
--- NOTE | 2024-04-18 06:01 | ED ---
SOB HPI - General Chief Complaint: Shortness of Breath Stated Complaint: SANTHOSH Time Seen by Provider: 04/18/24 05:57 Source: patient, EMS Mode of arrival: EMS Limitations: no limitations - History of Present Illness Initial Comments: This patient is 44-year-old man with history of asthma who presents with complaint that he is having flareup. Patient states that he was visiting a friend who has cats and that he is allergic to cats. He currently does not have his inhaler. EMS was called and did provide nebulized treatment and patient already starting to have improvement. Patient denies fever or chills. No productive cough. No chest pain. MD Complaint: "asthma attack" -: minutes(s) Severity scale (1-10): 0 Consistency: constant Improves With: bronchodilators Worsens With: nothing Known History Of: asthma Context: allergen exposure Associated Symptoms: cough Treatments Prior to Arrival: bronchodilator - Related Data Home Oxygen Therapy: No Home Medications Medication Instructions Recorded Confirmed Albuterol Inhaler [Ventolin Hfa 1 - 2 puff INHALATION RT-Q4H PRN 04/25/23 04/25/23 Inhaler] Previous Rx's Medication Instructions Recorded amLODIPine [Norvasc] 5 mg PO DAILY #30 tab 01/05/23 Albuterol Inhaler [Ventolin Hfa 1 - 2 puff INHALATION Q6HR PRN #2 04/25/23 Inhaler] each amLODIPine [Norvasc] 5 mg PO DAILY 30 Days #30 tab 04/25/23 Doxycycline [Vibramycin] 100 mg PO BID #20 capsule 10/07/23 Albuterol Sulfate [Albuterol 1 puff PO Q4-6H PRN #8.5 gm 01/12/24 Sulfate Hfa] Albuterol Inhaler [Ventolin Hfa 2 puff INHALATION Q4HR PRN #8 gm 04/18/24 Inhaler] predniSONE [Deltasone] 20 mg PO BID #8 tab 04/18/24 Allergies Allergy/AdvReac Type Severity Reaction Status Date / Time amoxicillin Allergy Rash/Hives Verified 01/12/24 07:55 ceftriaxone [From Rocephin] Allergy Rash/Hives Verified 01/12/24 07:55 Penicillins Allergy Rash/Hives Verified 01/12/24 07:55 shellfish derived [Shellfish] Allergy Swelling Verified 01/12/24 07:55 Review of Systems ROS Statement: Those systems with pertinent positive or pertinent negative responses have been documented in the HPI. ROS Other: All systems not noted in ROS Statement are negative. Constitutional: Denies: fever, chills Respiratory: Reports: cough, dyspnea, wheezes Cardiovascular: Denies: chest pain, palpitations, edema, syncope Gastrointestinal: Denies: abdominal pain, nausea, vomiting Genitourinary: Denies: dysuria, hematuria Musculoskeletal: Denies: back pain Skin: Denies: rash Neurological: Denies: headache, weakness, numbness Past Medical History Past Medical History: Asthma, GERD/Reflux, Hypertension History of Any Multi-Drug Resistant Organisms: None Reported Past Surgical History: Orthopedic Surgery Additional Past Surgical History / Comment(s): finger surgery Past Psychological History: No Psychological Hx Reported Smoking Status: Former smoker, Vaper Past Alcohol Use History: Rare Past Drug Use History: Marijuana General Exam Limitations: no limitations General appearance: alert, in no apparent distress Head exam: Present: atraumatic, normocephalic Eye exam: Present: normal appearance. Absent: scleral icterus, conjunctival injection ENT exam: Present: normal oropharynx Neck exam: Present: normal inspection Respiratory exam: Present: wheezes. Absent: respiratory distress, rales, rhonchi, stridor, accessory muscle use, decreased breath sounds, prolonged expiratory Cardiovascular Exam: Present: regular rate, normal rhythm, normal heart sounds. Absent: systolic murmur, diastolic murmur, rubs, gallop GI/Abdominal exam: Present: soft. Absent: distended, tenderness, guarding, rebound, rigid, mass Extremities exam: Present: normal inspection, normal capillary refill. Absent: pedal edema, calf tenderness Back exam: Present: normal inspection. Absent: CVA tenderness (R), CVA tenderness (L) Neurological exam: Present: alert Skin exam: Present: warm, dry, intact, normal color. Absent: rash Course Vital Signs 04/18/24 04/18/24 05:52 06:21 Temperature 97.6 F Pulse Rate 91 88 Respiratory 18 16 Rate Blood Pressure 142/93 O2 Sat by Pulse 100 100 Oximetry Medical Decision Making - Medical Decision Making Was pt. sent in by a medical professional or institution (, PA, OTR REFRIGERATED CDL TRUCK DRIVER, urgent care, hospital, or shelter...) When possible be specific @ -[No] Did you speak to anyone other than the patient for history (EMS, parent, family, police, friend...)? What history was obtained from this source @ -[No] Did you review nursing and triage notes (agree or disagree)? Why? @ -[I reviewed and agree with nursing and triage notes] Were old charts reviewed (outside hosp., previous admission, EMS record, old EKG, old radiological studies, urgent care reports/EKG's, shelter records)? Report findings @ -[No old charts were reviewed] Differential Diagnosis (chest pain, altered mental status, abdominal pain women, abdominal pain men, vaginal bleeding, weakness, fever, dyspnea, syncope, headache, dizziness, GI bleed, back pain, seizure, CVA, palpatations, mental health, musculoskeletal)? @ -[Differential Dyspnea: Coronary syndrome, arrhythmia, tamponade, asthma, COPD, pulmonary embolism, pneumonia, pneumothorax, pulmonary effusion, anaphylaxis, diabetic ketoacidosis, flailed chest, pulmonary contusion, diaphragmatic rupture, anemia, neuromuscular, this is not meant to be an all-inclusive list. EKG interpreted by me (3pts min.). @ -[As above] X-rays interpreted by me (1pt min.). @ -[None done] CT interpreted by me (1pt min.). @ -[None done] U/S interpreted by me (1pt. min.). @ -[None done] What testing was considered but not performed or refused? (CT, X-rays, U/S, labs )? Why? @ -[None] What meds were considered but not given or refused? Why? @ -[None] Did you discuss the management of the patient with other professionals (professionals i.e. , PA, OTR REFRIGERATED CDL TRUCK DRIVER, lab, RT, psych nurse, social secretary, dockworker, teacher, police patrol officer, assistant case manager)? Give summary @ -[No] Was smoking cessation discussed for >3mins.? @ -[No] Was critical care preformed (if so, how long)? @ -[No] Were there social determinants of health that impacted care today? How? (Homelessness, low income, unemployed, alcoholism, drug addiction, transportation, low edu. Level, literacy, decrease access to med. care, [facility], rehab)? @ -[No] Was there de-escalation of care discussed even if they declined (Discuss DNR or withdrawal of care, Hospice)? DNR status @ -[No] What co-morbidities impacted this encounter? (DM, HTN, Smoking, COPD, CAD, Cancer, CVA, ARF, Chemo, Hep., AIDS, mental health diagnosis, sleep apnea, morbid obesity)? @ -[History of asthma Was patient admitted / discharged? Hospital course, mention meds given and route, prescriptions, significant lab abnormalities, going to OR and other pertinent info. @ -[Patient here for symptoms consistent with asthma exacerbation. The patient is feeling better following treatment. Will provide with prescription for further outpatient medications. Discussed appropriate further care and follow- up as well as return parameters. Undiagnosed new problem with uncertain prognosis? @ -[No] Drug Therapy requiring intensive monitoring for toxicity (Heparin, Nitro, Insulin, Cardizem)? @ -[No] Were any procedures done? @ -[No] Diagnosis/symptom? @ -[Acute asthma exacerbation Acute, or Chronic, or Acute on Chronic? @ -[Acute Uncomplicated (without systemic symptoms) or Complicated (systemic symptoms)? @ -[Uncomplicated Side effects of treatment? @ -[No] Exacerbation, Progression, or Severe Exacerbation? @ -[Exacerbation Poses a threat to life or bodily function? How? (Chest pain, [place], [place], pneumonia, PE, COPD, DKA, ARF, appy, cholecystitis, CVA, Diverticulitis, Homicidal, Suicidal, threat to staff... and all critical care pts) @ -[No] Disposition Clinical Impression: Asthma attack Disposition: HOME SELF-CARE Condition: Good Instructions (If sedation given, give patient instructions): Asthma (ED) Prescriptions: predniSONE [Deltasone] 20 mg PO BID #8 tab Albuterol Inhaler [Ventolin Hfa Inhaler] 2 puff INHALATION Q4HR PRN #8 gm PRN Reason: Wheezing Is patient prescribed a controlled substance at d/c from ED?: No Referrals: Sangita Toribio MD [Primary Care Provider] - 1-2 days
[2024-04-18 06:24] VITALS: PULSE 88; RESP 16
== END 2024-04-18 06:10 | disposition home or self-care (01) ==
LOC: EC 05:51
DX: J45.901 Unspecified asthma with (acute) exacerbation (principal); F17.290 Nicotine dependence, other tobacco product, uncomplicated; Z91.013 Allergy to seafood; Z88.0 Allergy status to penicillin; Z88.1 Allergy status to other antibiotic agents; Z88.8 Allergy status to other drugs, medicaments and biological substances
CPT/HCPCS: 99285

== ENCOUNTER 2024-09-19 18:43 | Emergency (ER) | payer OTHER ==
[2024-09-19 18:54] VITALS: TEMP 98
--- NOTE | 2024-09-19 20:17 | ED ---
General Adult HPI - General Chief complaint: Shortness of Breath Stated complaint: SOB Time Seen by Provider: 09/19/24 18:57 Source: patient Mode of arrival: ambulatory Limitations: no limitations - History of Present Illness Initial comments: Dictation was produced using Dada dictation software. please excuse any grammatical, word or spelling errors. Chief Complaint: 44-year-old male presents to the emergency department asthma constipation History of Present Illness: Patient is 44-year-old male with history of asthma. States that he lives at a place where there is a bunch of cats and triggers for his asthma. States that today started to have recurrence of his asthma extremity exacerbation. Denies any chest pain. Patient states that his nebulizers at home has not really been helping. Denies any fever, chills or night sweats. Does have a mild cough. No obvious sick contacts. The ROS documented in this emergency department record has been reviewed and confirmed by me. Those systems with pertinent positive or negative responses have been documented in the HPI. All other systems are other negative and/or noncontributory. - Related Data Home Medications Medication Instructions Recorded Confirmed Albuterol Inhaler [Ventolin Hfa 1 - 2 puff INHALATION RT-Q4H PRN 04/25/2306/10 Inhaler] Previous Rx's Medication Instructions Recorded amLODIPine [Norvasc] 5 mg PO DAILY #30 tab 01/05/23 Albuterol Inhaler [Ventolin Hfa 1 - 2 puff INHALATION Q6HR PRN #2 04/25/23 Inhaler] each amLODIPine [Norvasc] 5 mg PO DAILY 30 Days #30 tab 04/25/23 Doxycycline [Vibramycin] 100 mg PO BID #20 capsule 10/07/23 Albuterol Sulfate [Albuterol 1 puff PO Q4-6H PRN #8.5 gm 01/12/24 Sulfate Hfa] Albuterol Inhaler [Ventolin Hfa 2 puff INHALATION Q4HR PRN #8 gm 04/18/24 Inhaler] predniSONE [Deltasone] 20 mg PO BID #8 tab 04/18/24 methylPREDNISolone Dose Pack 4 mg PO DIRECTED #1 packet 09/19/24 [Medrol Dose Pack] Allergies Allergy/AdvReac Type Severity Reaction Status Date / Time amoxicillin Allergy Rash/Hives Verified 12/02/24 18:54 ceftriaxone [From Rocephin] Allergy Rash/Hives Verified 09/19/24 18:54 Penicillins Allergy Rash/Hives Verified 09/19/24 18:54 shellfish derived [Shellfish] Allergy Swelling Verified 09/19/24 18:54 Review of Systems ROS Statement: Those systems with pertinent positive or pertinent negative responses have been documented in the HPI. ROS Other: All systems not noted in ROS Statement are negative. Past Medical History Past Medical History: Asthma, GERD/Reflux, Hypertension History of Any Multi-Drug Resistant Organisms: None Reported Past Surgical History: Orthopedic Surgery Additional Past Surgical History / Comment(s): finger surgery Past Psychological History: No Psychological Hx Reported Smoking Status: Former smoker, Vaper Past Alcohol Use History: Rare Past Drug Use History: Marijuana General Exam - General Exam Comments Initial Comments: PHYSICAL EXAM: General Impression: Alert and oriented x3, not in acute distress HEENT: Normocephalic atraumatic, extra-ocular movements intact, pupils equal and reactive to light bilaterally, mucous membranes moist. Cardiovascular: Heart regular rate and rhythm Chest: Able to complete full sentences, no retractions, no tachypnea, diffuse lung wheezing Abdomen: abdomen soft, non-tender, non-distended, no organomegaly Musculoskeletal: Pulses present and equal in all extremities, no peripheral edema Motor: no focal deficits noted Neurological: CN II-XII grossly intact, no focal motor or sensory deficits noted Skin: Intact with no visualized rashes Psych: Normal affect and mood Limitations: no limitations Course Vital Signs 09/19/24 09/19/24 09/19/24 18:51 20:36 20:41 Temperature 98 F Pulse Rate 106 H 84 84 Respiratory 18 Rate Blood Pressure 141/91 O2 Sat by Pulse 96 Oximetry Medical Decision Making - Medical Decision Making Was pt. sent in by a medical professional or institution (, PA, TRANSFER CAR OPERATOR DRIER, urgent care, hospital, or usp...) When possible be specific @ -No Did you speak to anyone other than the patient for history (EMS, parent, family, police, friend...)? What history was obtained from this source @ -No Did you review nursing and triage notes (agree or disagree)? Why? @ -I reviewed and agree with nursing and triage notes Were old charts reviewed (outside hosp., previous admission, EMS record, old EKG, old radiological studies, urgent care reports/EKG's, usp records)? Report findings @ -No old charts were reviewed Differential Diagnosis (chest pain, altered mental status, abdominal pain women, abdominal pain men, vaginal bleeding, musculoskeletal, weakness, fever, dyspnea, syncope, headache, dizziness, GI bleed, back pain, seizure, CVA, palpatations, mental health)? @ -Differential Dyspnea: Coronary syndrome, arrhythmia, tamponade, asthma, COPD, pulmonary embolism, pneumonia, pneumothorax, pulmonary effusion, anaphylaxis, diabetic ketoacidosis, flailed chest, pulmonary contusion, diaphragmatic rupture, anemia, neuromuscular, this is not meant to be an all-inclusive list. EKG interpreted by me (3pts min.). @ -None done X-rays interpreted by me (1pt min.). @ -Chest x-ray nonacute CT interpreted by me (1pt min.). @ -None done U/S interpreted by me (1pt. min.). @ -None done What testing was considered but not performed or refused? (CT, X-rays, U/S, labs)? Why? @ -None What meds were considered but not given or refused? Why? @ -None Was smoking cessation discussed for >3mins.? @ -No Were there social determinants of health that impacted care today? How? (Homelessness, low income, unemployed, alcoholism, drug addiction, transportation, low edu. Level, literacy, decrease access to med. care, detention, rehab)? @ -No Was there de-escalation of care discussed even if they declined (Discuss DNR or withdrawal of care, Hospice)? DNR status @ -No What co-morbidities impacted this encounter? (DM, HTN, Smoking, COPD, CAD, Cancer, CVA, ARF, Chemo, Hep., AIDS, mental health diagnosis, sleep apnea, morbid obesity)? @ -Asthma Was patient admitted / discharged? Hospital course, mention meds given and route, prescriptions, significant lab abnormalities, going to OR and other pertinent info. @ -34-year-old male with asthma exacerbation. Vital signs stable. Patient wheezing on physical exam. Patient given breathing treatment with Decadron. Reevaluated bedside 9:45 PM with complete resolution of his wheezing. Patient given prescription for Medrol Dosepak. Patient has a nebulizer at home. Did you discuss the management of the patient with other professionals (professionals i.e. , PA, TRANSFER CAR OPERATOR DRIER, lab, RT, psych nurse, social media specialist, certified nurses aide, teacher, signals officer, bilingual patient support caseworker)? Give summary @ -No Was critical care preformed (if so, how long)? @ -No Undiagnosed new problem with uncertain prognosis? @ -No Drug Therapy requiring intensive monitoring for toxicity (Heparin, Nitro, Insulin, Cardizem)? @ -No Were any procedures done? @ -No Diagnosis/symptom? Acute, or Chronic, or Acute on Chronic? Uncomplicated (without systemic symptoms) or Complicated (systemic symptoms)? @ -Acute uncomplicated asthma exacerbation Side effects of treatment? @ -No Exacerbation, Progression, or Severe Exacerbation? @ -No Poses a threat to life or bodily function? How? (Chest pain, [place], [place], pneumonia, PE, COPD, DKA, ARF, appy, cholecystitis, CVA, Diverticulitis, Homicidal, Suicidal, threat to staff... and all critical care pts) @ -yes Disposition Clinical Impression: Asthma Disposition: HOME SELF-CARE Condition: Fair Instructions (If sedation given, give patient instructions): Asthma (ED) Prescriptions: methylPREDNISolone Dose Pack [Medrol Dose Pack] 4 mg PO DIRECTED #1 packet Is patient prescribed a controlled substance at d/c from ED?: No Referrals: Sangita Toribio MD [Primary Care Provider] - 1-2 days Time of Disposition: 21:44
[2024-09-19] MEDS: dexAMETHasone 4 MG TAB PO STA (20:35)
[2024-09-19] MEDS: IPRATROPIUM-ALBUTEROL 3 ML NEB INHALATION STA (20:36)
--- NOTE | 2024-09-19 20:54 | XR ---
EXAMINATION TYPE: XR chest 2V DATE OF EXAM: 09/19/2024 8:39 PM COMPARISON: Chest radiographs from 09/23/2023 CLINICAL INDICATION: Male, 44 years old with history of asthma; TECHNIQUE: XR chest 2V Frontal and lateral views of the chest. FINDINGS: Lungs/Pleura: There is no evidence of pleural effusion, focal consolidation, or pneumothorax. Pulmonary vascularity: Unremarkable. Heart/mediastinum: Cardiomediastinal silhouette is unremarkable. Musculoskeletal: No acute osseous pathology. IMPRESSION: No acute cardiopulmonary disease/process. [facility], , 09/19/2024 8:52 PM
[2024-09-19 21:53] VITALS: BP 130/89; PULSE 101; RESP 20
== END 2024-09-19 21:51 | disposition home or self-care (01) ==
LOC: EC 18:43
DX: J45.901 Unspecified asthma with (acute) exacerbation (principal); F17.290 Nicotine dependence, other tobacco product, uncomplicated; Z88.0 Allergy status to penicillin; Z88.1 Allergy status to other antibiotic agents; Z91.013 Allergy to seafood
CPT/HCPCS: 94640; 71046; 99285; J8540

== ENCOUNTER 2025-01-06 14:40 | Emergency (ER) | payer OTHER ==
[2025-01-06 14:50] VITALS: BP 129/87; PULSE 123; RESP 18; TEMP 98.2
--- NOTE | 2025-01-06 15:38 | ED ---
Psych HPI - General Chief Complaint: Psychiatric Symptoms Stated Complaint: Anxiety Time Seen by Provider: 01/06/25 15:38 Source: patient, RN notes reviewed, old records reviewed Mode of arrival: ambulatory Limitations: no limitations - History of Present Illness Initial Comments: 44-year-old male presented to the ER for evaluation of anxiety. Patient states he has PTSD from childhood and adulthood that he is coping with. He states recently 2 of his close friends which have triggered more frequent anxiety attacks. Patient reports he frequently replay situations in his head initiating attacks. He denies any SI, HI or hallucinations. Patient states he was seeing [facility] but was kicked out of the program as he missed 2 appointments. He is not currently on any antianxiety medications. He is looking to reenter [facility]'s program. Patient reports a sharp chest discomfort along with shortness of breath. He has no personal history of MIs but does have hypertension and is a marijuana smoker. Patient denies any current dizziness, lightheadedness, nausea, vomiting. No history of blood clots or recent travel. Patient has no other complaints at this time. - Related Data Home Medications Medication Instructions Recorded Confirmed Albuterol Inhaler [Ventolin Hfa 1 - 2 puff INHALATION RT-Q4H PRN 04/25/23 04/25/23 Inhaler] Previous Rx's Medication Instructions Recorded amLODIPine [Norvasc] 5 mg PO DAILY #30 tab 01/05/23 Albuterol Inhaler [Ventolin Hfa 1 - 2 puff INHALATION Q6HR PRN #2 04/25/23 Inhaler] each amLODIPine [Norvasc] 5 mg PO DAILY 30 Days #30 tab 04/25/23 Doxycycline [Vibramycin] 100 mg PO BID #20 capsule 10/07/23 Albuterol Sulfate [Albuterol 1 puff PO Q4-6H PRN #8.5 gm 01/12/24 Sulfate Hfa] Albuterol Inhaler [Ventolin Hfa 2 puff INHALATION Q4HR PRN #8 gm 04/18/24 Inhaler] predniSONE [Deltasone] 20 mg PO BID #8 tab 04/18/24 methylPREDNISolone Dose Pack 4 mg PO DIRECTED #1 packet 09/19/24 [Medrol Dose Pack] Allergies Allergy/AdvReac Type Severity Reaction Status Date / Time amoxicillin Allergy Rash/Hives Verified 09/19/24 18:54 ceftriaxone [From Rocephin] Allergy Rash/Hives Verified 09/19/24 18:54 Penicillins Allergy Rash/Hives Verified 09/19/24 18:54 shellfish derived [Shellfish] Allergy Swelling Verified 09/19/24 18:54 Review of Systems ROS Statement: Those systems with pertinent positive or pertinent negative responses have been documented in the HPI. ROS Other: All systems not noted in ROS Statement are negative. Past Medical History Past Medical History: Asthma, GERD/Reflux, Hypertension History of Any Multi-Drug Resistant Organisms: None Reported Past Surgical History: Orthopedic Surgery Additional Past Surgical History / Comment(s): finger surgery Past Psychological History: No Psychological Hx Reported Smoking Status: Former smoker, Vaper Past Alcohol Use History: Rare Past Drug Use History: Marijuana General Exam Limitations: no limitations General appearance: alert, in no apparent distress Respiratory exam: Present: normal lung sounds bilaterally. Absent: respiratory distress, wheezes, rales, rhonchi, stridor Cardiovascular Exam: Present: regular rate, normal rhythm, normal heart sounds. Absent: systolic murmur, diastolic murmur, rubs, gallop, clicks Extremities exam: Present: normal inspection, full ROM, normal capillary refill. Absent: tenderness, pedal edema, joint swelling, calf tenderness Neurological exam: Present: alert, oriented X3, CN II-XII intact Psychiatric exam: Present: anxious Skin exam: Present: warm, dry, intact, normal color. Absent: rash Course Vital Signs 01/06/25 14:46 Temperature 98.2 F Pulse Rate 123 H Respiratory 18 Rate Blood Pressure 129/87 O2 Sat by Pulse 99 Oximetry Medical Decision Making - Medical Decision Making Was pt. sent in by a medical professional or institution (, PA, CREWMAN ARMOURED PERSONNEL CARRIER M113, urgent care, hospital, or fdc...) When possible be specific @ -No Did you speak to anyone other than the patient for history (EMS, parent, family, police, friend...)? What history was obtained from this source @ -No Did you review nursing and triage notes (agree or disagree)? Why? @ -I reviewed and agree with nursing and triage notes Were old charts reviewed (outside hosp., previous admission, EMS record, old EKG, old radiological studies, urgent care reports/EKG's, fdc records)? Report findings @ -No old charts were reviewed Differential Diagnosis (chest pain, altered mental status, abdominal pain women, abdominal pain men, vaginal bleeding, weakness, fever, dyspnea, syncope, headache, dizziness, GI bleed, back pain, seizure, CVA, palpatations, mental health, musculoskeletal)? @ -Differential Mental Health: Depression, anxiety, bipolar, psychosis, schizophrenia, borderline personality, situational depression, adjustment disorder, behavioral disorder, brain tumor, malingering, substance abuse, encephalopathy, medication reaction, dementia, hypothyroidism, degenerative neurologic disorder, lupus.... This is not meant to be all-inclusive list EKG interpreted by me (3pts min.). @ -None done X-rays interpreted by me (1pt min.). @ -None done CT interpreted by me (1pt min.). @ -None done U/S interpreted by me (1pt. min.). @ -None done What testing was considered but not performed or refused? (CT, X-rays, U/S, labs)? Why? @ -Patient refused cardiac workup. What meds were considered but not given or refused? Why? @ -None Did you discuss the management of the patient with other professionals (professionals i.e. , PA, CREWMAN ARMOURED PERSONNEL CARRIER M[employer], lab, RT, psych nurse, social group worker, maintenance service technician, teacher, air defense artillery officer, case resource manager)? Give summary @ -No Was smoking cessation discussed for >3mins.? @ -No Was critical care preformed (if so, how long)? @ -No Were there social determinants of health that impacted care today? How? (H omelessness, low income, unemployed, alcoholism, drug addiction, transportation, low edu. Level, literacy, decrease access to med. care, correction, rehab)? @ -No Was there de-escalation of care discussed even if they declined (Discuss DNR or withdrawal of care, Hospice)? DNR status @ -No What co-morbidities impacted this encounter? (DM, HTN, Smoking, COPD, CAD, Cancer, CVA, ARF, Chemo, Hep., AIDS, mental health diagnosis, sleep apnea, morbid obesity)? @ -PTSD, hypertension, marijuana smoker Was patient admitted / discharged? Hospital course, mention meds given and route, prescriptions, significant lab abnormalities, going to OR and other pertinent info. @ -44-year-old male presented the ER for evaluation of anxiety. Patient also reports recent chest discomfort for which cardiac workup was strongly recommended, given comorbidities, to patient who adamantly refused. Patient AxO x 4. Patient displayed medical decision-making capabilities. Patient denies SI, HI or hallucinations. Patient requesting [facility] resources and medication for GERD, protonix given. Community and counseling resources provided to patient upon discharge. I advised patient to follow-up with PCP in 1-2 days. Return p aramettrudi discussed. Case discussed with ED attending, Dr. [place]. Undiagnosed new problem with uncertain prognosis? @ -No Drug Therapy requiring intensive monitoring for toxicity (Heparin, Nitro, I nsulin, Cardizem)? @ -No Were any procedures done? @ -No Diagnosis/symptom? @ -Anxiety Acute, or Chronic, or Acute on Chronic? @ -Acute Uncomplicated (without systemic symptoms) or Complicated (systemic symptoms)? @ -Uncomplicated Side effects of treatment? @ -No Exacerbation, Progression, or Severe Exacerbation? @ -No Poses a threat to life or bodily function? How? (Chest pain, [place], [place], pneumonia, PE, COPD, DKA, ARF, appy, cholecystitis, CVA, Diverticulitis, Homicidal, Suicidal, threat to staff... and all critical care pts) @ -No Disposition Clinical Impression: Acute anxiety Disposition: HOME SELF-CARE Condition: Stable Additional Instructions: Follow-up with [facility] and PCP. Return to the ER for any new or worsening symptoms. Is patient prescribed a controlled substance at d/c from ED?: No Referrals: Sangita Toribio MD [Primary Care Provider] - 1-2 days Forms: Area PCPs, Outpatient Therapy List, Outpatient Counseling, Community Resources Time of Disposition: 17:35
--- NOTE | 2025-01-06 16:15 | XR ---
EXAMINATION TYPE: XR chest 2V DATE OF EXAM: 01/06/2025 4:08 PM COMPARISON: 09/19/24 CLINICAL INDICATION: Male, 44 years old with history of Chest Pain, TECHNIQUE: Frontal and lateral views of the chest are obtained. FINDINGS: There is no focal air space opacity, pleural effusion, or pneumothorax seen. The cardiac silhouette size is within normal limits. The osseous structures are intact. IMPRESSION: No acute cardiopulmonary process. [facility], , 01/06/2025 4:12 PM
[2025-01-06] MEDS: ASPIRIN 81 MG PO STA (17:11)
[2025-01-06] MEDS: PANTOPRAZOLE 40 MG TABLET PO STA (17:26)
== END 2025-01-06 18:12 | disposition home or self-care (01) ==
LOC: EC 14:40
DX: F41.9 Anxiety disorder, unspecified (principal); I10 Essential (primary) hypertension; F17.290 Nicotine dependence, other tobacco product, uncomplicated; Z88.1 Allergy status to other antibiotic agents; Z88.0 Allergy status to penicillin; Z91.013 Allergy to seafood
CPT/HCPCS: 71046; 99284

== ENCOUNTER 2025-03-07 10:06 | Emergency (ER) | payer OTHER ==
[2025-03-07 10:13] VITALS: TEMP 98
--- NOTE | 2025-03-07 10:26 | ED ---
General Adult HPI - General Chief complaint: Shortness of Breath Stated complaint: SANTHOSH Time Seen by Provider: 03/07/25 10:13 Source: patient, RN notes reviewed Mode of arrival: ambulatory Limitations: no limitations - History of Present Illness Initial comments: Patient is a 45-year-old male presents emergency department with concerns with difficulty in breathing. Onset of symptoms was yesterday. Patient has used his inhaler multiple times. Symptoms are somewhat improved since going outside this morning. No fever. No congestion. Symptoms are similar to previous asthma. Patient states he did run out of nebulizer solution. - Related Data Home Medications Medication Instructions Recorded Confirmed Albuterol Inhaler [Ventolin Hfa 1 - 2 puff INHALATION RT-Q4H PRN 04/25/23 04/25/23 Inhaler] Previous Rx's Medication Instructions Recorded amLODIPine [Norvasc] 5 mg PO DAILY #30 tab 01/05/23 Albuterol Inhaler [Ventolin Hfa 1 - 2 puff INHALATION Q6HR PRN #2 04/25/23 Inhaler] each amLODIPine [Norvasc] 5 mg PO DAILY 30 Days #30 tab 04/25/23 Doxycycline [Vibramycin] 100 mg PO BID #20 capsule 10/07/23 Albuterol Sulfate [Albuterol 1 puff PO Q4-6H PRN #8.5 gm 01/12/24 Sulfate Hfa] Albuterol Inhaler [Ventolin Hfa 2 puff INHALATION Q4HR PRN #8 gm 04/18/24 Inhaler] predniSONE [Deltasone] 20 mg PO BID #8 tab 04/18/24 methylPREDNISolone Dose Pack 4 mg PO DIRECTED #1 packet 09/19/24 [Medrol Dose Pack] Albuterol Nebulized [Ventolin 2.5 mg INHALATION QID PRN #75 ml 03/07/25 Nebulized] predniSONE [Deltasone] 20 mg PO BID #8 tab 03/07/25 Allergies Allergy/AdvReac Type Severity Reaction Status Date / Time amoxicillin Allergy Rash/Hives Verified 03/07/25 10:13 ceftriaxone [From Rocephin] Allergy Rash/Hives Verified 03/07/25 10:13 Penicillins Allergy Rash/Hives Verified 03/07/25 10:13 shellfish derived [Shellfish] Allergy Swelling Verified 03/07/25 10:13 Review of Systems ROS Statement: Those systems with pertinent positive or pertinent negative responses have been documented in the HPI. ROS Other: All systems not noted in ROS Statement are negative. Constitutional: Denies: fever Eyes: Denies: eye pain ENT: Denies: ear pain Respiratory: Reports: as per HPI, dyspnea, wheezes Cardiovascular: Denies: chest pain Endocrine: Denies: fatigue Gastrointestinal: Denies: abdominal pain Musculoskeletal: Denies: back pain Past Medical History Past Medical History: Asthma, GERD/Reflux, Hypertension History of Any Multi-Drug Resistant Organisms: None Reported Past Surgical History: Orthopedic Surgery Additional Past Surgical History / Comment(s): finger surgery Past Psychological History: No Psychological Hx Reported Smoking Status: Former smoker, Vaper Past Alcohol Use History: Rare Past Drug Use History: Marijuana General Exam Limitations: no limitations General appearance: alert Head exam: Present: normocephalic Eye exam: Present: normal appearance Neck exam: Present: normal inspection Respiratory exam: Present: wheezes Cardiovascular Exam: Present: regular rate, normal rhythm GI/Abdominal exam: Present: soft. Absent: tenderness Extremities exam: Present: normal inspection. Absent: pedal edema, calf tenderness Neurological exam: Present: alert Psychiatric exam: Present: normal affect, normal mood Skin exam: Present: normal color Course Vital Signs 03/07/25 03/07/25 03/07/25 10:11 10:13 10:34 Temperature 98.0 F Pulse Rate 96 83 86 Respiratory 20 20 Rate Blood Pressure 135/94 124/86 O2 Sat by Pulse 97 97 Oximetry 03/07/25 10:41 Temperature Pulse Rate 79 Respiratory Rate Blood Pressure O2 Sat by Pulse Oximetry EKG Findings - EKG Results: EKG: interpreted by ERMD, sinus rhythm, normal axis, normal QRS, normal ST/T Medical Decision Making - Medical Decision Making Was pt. sent in by a medical professional or institution (, PA, POND SUPERVISOR, urgent care, hospital, or senior care...) When possible be specific @ -No Did you speak to anyone other than the patient for history (EMS, parent, family, police, friend...)? What history was obtained from this source @ -No Did you review nursing and triage notes (agree or disagree)? Why? @ -I reviewed and agree with nursing and triage notes Were old charts reviewed (outside hosp., previous admission, EMS record, old EKG, old radiological studies, urgent care reports/EKG's, senior care records)? Report findings @ -No old charts were reviewed Differential Diagnosis (chest pain, altered mental status, abdominal pain women, abdominal pain men, vaginal bleeding, weakness, fever, dyspnea, syncope, headache, dizziness, GI bleed, back pain, seizure, CVA, palpatations, mental health, musculoskeletal)? @ -Differential Dyspnea: Coronary syndrome, arrhythmia, tamponade, asthma, COPD, pulmonary embolism, pneumonia, pneumothorax, pulmonary effusion, anaphylaxis, diabetic ketoacidosis, flailed chest, pulmonary contusion, diaphragmatic rupture, anemia, neuromuscular, this is not meant to be an all-inclusive list. EKG interpreted by me (3pts min.). @ -As above X-rays interpreted by me (1pt min.). @ -None done CT interpreted by me (1pt min.). @ -None done U/S interpreted by me (1pt. min.). @ -None done What testing was considered but not performed or refused? (CT, X-rays, U/S, labs)? Why? @ -Consider x-ray however patient refuses stating this is his chronic asthma What meds were considered but not given or refused? Why? @ -None Did you discuss the management of the patient with other professionals (professionals i.e. , PA, POND SUPERVISOR, lab, RT, psych nurse, social media executive, veneer jointer returner, teacher, foreign service officer, case coordinator)? Give summary @ -No Was smoking cessation discussed for >3mins.? @ -No Was critical care preformed (if so, how long)? @ -No Were there social determinants of health that impacted care today? How? (Homelessness, low income, unemployed, alcoholism, drug addiction, t ransportation, low edu. Level, literacy, decrease access to med. care, longterm, rehab)? @ -No Was there de-escalation of care discussed even if they declined (Discuss DNR or withdrawal of care, Hospice)? DNR status @ -No What co-morbidities impacted this encounter? (DM, HTN, Smoking, COPD, CAD, Cancer, CVA, ARF, Chemo, Hep., AIDS, mental health diagnosis, sleep apnea, morbid obesity)? @ -History of asthma Was patient admitted / discharged? Hospital course, mention meds given and route, prescriptions, significant lab abnormalities, going to OR and other pertinent info. @ -Patient presents with dyspnea and wheezing consistent with history of asthma. Significantly improved with nebulizer treatment. Patient we discharged with prescription. Patient reevaluated and updated Undiagnosed new problem with uncertain prognosis? @ -No Drug Therapy requiring intensive monitoring for toxicity (Heparin, Nitro, Insulin, Cardizem)? @ -No Were any procedures done? @ -No Diagnosis/symptom? @ -Asthma Acute, or Chronic, or Acute on Chronic? @ -Acute Uncomplicated (without systemic symptoms) or Complicated (systemic symptoms)? @ -Default Side effects of treatment? @ -No Exacerbation, Progression, or Severe Exacerbation? @ -Exacerbation Poses a threat to life or bodily function? How? (Chest pain, [place], [place], pneumonia, PE, COPD, DKA, ARF, appy, cholecystitis, CVA, Diverticulitis, Homicidal, S uicidal, threat to staff... and all critical care pts) @ -No Disposition Clinical Impression: Asthma with acute exacerbation Disposition: HOME SELF-CARE Condition: Stable Instructions (If sedation given, give patient instructions): Asthma (ED) Additional Instructions: Prescription sent to pharmacy. Please do follow-up with primary care physician in the next couple of days for recheck. Return for difficulty breathing, fevers, worsening symptoms or other concerns. Prescriptions: predniSONE [Deltasone] 20 mg PO BID #8 tab Albuterol Nebulized [Ventolin Nebulized] 2.5 mg INHALATION QID PRN #75 ml PRN Reason: Dyspnea Is patient prescribed a controlled substance at d/c from ED?: No Referrals: Sangita Toribio MD [Primary Care Provider] - 1-2 days Time of Disposition: 11:02
[2025-03-07] MEDS: IPRATROPIUM-ALBUTEROL 3 ML NEB INHALATION STA (10:34)
[2025-03-07 11:12] VITALS: BP 119/70; PULSE 86; RESP 16
== END 2025-03-07 11:12 | disposition home or self-care (01) ==
LOC: EC 10:06
DX: J45.901 Unspecified asthma with (acute) exacerbation (principal); F17.290 Nicotine dependence, other tobacco product, uncomplicated; Z91.013 Allergy to seafood; Z88.0 Allergy status to penicillin; Z88.1 Allergy status to other antibiotic agents
CPT/HCPCS: 94640; 99284